=== PATIENT | female | born 1990 | race Caucasian/White ===

== ENCOUNTER 2017-01-27 20:42 | Emergency (ER) | payer SELFPAY ==
[~2017-01-27] VITALS: Ht 170.2 cm; Wt 131.5 kg
[2017-01-27] MEDS ORDERED: CYCL10TA9 PO (21:11)
[2017-01-27] MEDS ORDERED: CLON0.5T PO (21:11)
[2017-01-27] MEDS ORDERED: NS IV 1000 ML 1,000 ML IV ONE (21:23)
[2017-01-27] MEDS ORDERED: diphenhydrAMINE 50 MG/ML INJ (BENADRYL) IVP ONE (21:30)
[2017-01-27] MEDS ORDERED: PROMETHAZINE INJ 25 MG/ML (PHENERGAN) AMP IVP ONE (21:30)
[2017-01-27] MEDS ORDERED: fentaNYL INJECTION 100 MCG/2 ML AMP IVP ONE (21:30)
[2017-01-27] MEDS ORDERED: RX-TRAMADOL 50 MG (ULTRAM) TAB PPK#4 PO STA (22:34)
--- NOTE | 2017-01-27 22:34 | ED Headache ---
General Chief Complaint: Head/Cervical Problems Stated Complaint: HEADACHE Nursing Triage Note: pt reports she has a bump on the right side of her head x 6 months with headache et vision changes. reports she had a ct in the past that was negative. Nursing Sepsis Screen: No Definite Risk Allergies and Home Medications Allergies Coded Allergies: ketorolac (Unverified Adverse Reaction, Unknown, 01/27/17) meperidine (Unverified Adverse Reaction, Unknown, 01/27/17) Home Medications Clonazepam 0.5 Mg Tablet, 0.5 MG PO TID PRN for ANXIETY, (Reported) Cyclobenzaprine HCl 10 Mg Tablet, 10 MG PO TID PRN for BACK PAIN, (Reported) Past Mtadfem-Ymyxyg-Zizhze Hx Patient Social History Alcohol Use: Denies Use Recreational Drug Use: No Smoking Status: Current Everyday Smoker Recent Foreign Travel: No Contact w/Someone Who Travel: No Recent Infectious Disease Expo: No Recent Hopitalizations: No Physical Abuse: No Sexual Abuse: No Mistreated: No Fear: No Seasonal Allergies Seasonal Allergies: No Surgeries History of Surgeries: Yes Surgeries: Gallbladder Neurological History of Neurological Disord: Yes Neurological Disorders: Headaches /Migraines Psychosocial Suicide Risk Score: 0 Physical Exam Vital Signs Vital Sign - Last 12Hours 01/27/17 21:07 Temp 98.5 Pulse 108 Resp 14 B/P (MAP) 142/103 Capillary Refill : Less Than 3 Seconds Progress/Results/Core Measures Results/Orders My Orders Orders - DONNA GILL MD Fentanyl Injection (Sublimaze Injection (01/27/17 21:30) Diphenhydramine Injection (Benadryl Inje (01/27/17 21:30) Promethazine Injection (Phenergan Injec (01/27/17 21:30) Ns Iv 1000 Ml (Sodium Chloride 0.9%) (01/27/17 21:23) Saline Lock/Iv-Start (01/27/17 21:48) Medications Given in ED Current Medications Medications Dose Ordered Sig/Phi Route Start Time Stop Time Status Last Admin Dose Admin Diphenhydramine HCl 25 mg ONCE ONCE IVP 01/27/17 21:30 01/27/17 21:31 DC 01/27/17 21:39 25 MG Fentanyl Citrate 50 mcg ONCE ONCE IVP 01/27/17 21:30 01/27/17 21:31 DC 01/27/17 21:39 50 MCG Promethazine HCl 25 mg ONCE ONCE IVP 01/27/17 21:30 01/27/17 21:31 DC 01/27/17 21:39 25 MG Sodium Chloride 1,000 ml @ 0 mls/hr Q0M ONCE IV 01/27/17 21:23 01/27/17 21:25 DC 01/27/17 21:39 1,000 MLS/HR Vital Signs/I&O Vital Sign - Last 12Hours 01/27/17 21:07 Temp 98.5 Pulse 108 Resp 14 B/P (MAP) 142/103 Blood Pressure Mean: 116 Departure Impression Impression: Primary Impression: Migraine Qualified Codes: G43.109 - Migraine with aura, not intractable, without status migrainosus Disposition: 01 HOME, SELF-CARE Condition: Improved Departure-Patient Inst. Decision time for Depature: 22:30 Referrals: NO,LOCAL PHYSICIAN (PCP) Primary Care Physician Patient Instructions: Migraine Headache (DC) Add. Discharge Instructions: Drink plenty of clear liquids. You may take ibuprofen up to 600 mg every 6 hours as needed for pain. Add Tylenol (acetaminophen) up to 1000 mg every 6 hours as needed for additional pain relief. If these medications do not control your pain, use the Ultram (tramadol) one tablet every 6 hours as needed. Return to care if symptoms worsen. Follow up with your primary care provider to talk about migraine prevention and treatment at home. All discharge instructions reviewed with patient and/or family. Voiced understanding. DONNA GILL MD Jan 27, 2017 22:34
[2017-01-27 23:11] VITALS: BP 118/55
== END 2017-01-27 23:11 | disposition home or self-care (01) ==
LOC: EDUNIT# 20:42 → ER 20:46
DX: G43.909 Migraine, unspecified, not intractable, without status migrainosus (principal); F17.200 Nicotine dependence, unspecified, uncomplicated

== ENCOUNTER 2017-02-15 04:23 | Emergency (ER) | payer SELFPAY ==
[~2017-02-15] VITALS: Ht 170.2 cm; Wt 131.5 kg
[~2017-02-15 04:23] MED LIST: CLON0.5T PO; CYCL10TA9 PO
[2017-02-15] MEDS ORDERED: NS IV 1000 ML 1,000 ML IV ONE (04:35)
[2017-02-15] MEDS ORDERED: diphenhydrAMINE 50 MG/ML INJ (BENADRYL) IVP ONE (04:45)
[2017-02-15] MEDS ORDERED: PROMETHAZINE INJ 25 MG/ML (PHENERGAN) AMP IVP ONE (04:45)
[2017-02-15] MEDS ORDERED: fentaNYL INJECTION 100 MCG/2 ML AMP IVP ONE (05:15)
--- NOTE | 2017-02-15 05:33 | ED Headache ---
General Chief Complaint: Head/Cervical Problems Stated Complaint: MIGRAINE Nursing Triage Note: PT C/O MIGRAINE SINCE 1600 YESTERDAY AFTERNOON. SHE STATES SHE HAS HAD N/V. SHE REPORTS TAKING EXCEDRIN MIGRAINE WITH NO RELIEF. Nursing Sepsis Screen: No Definite Risk Source: patient, old records Exam Limitations: no limitations History of Present Illness Time seen by provider: 04:30 Initial Comments This 26-year-old young lady presents to the emergency room with complaints of migraine headache that started yesterday afternoon. She took Excedrin Migraine which did not resolve the headache. She has been vomiting 2 hours. She was seen in this ER about 3 weeks ago for the same problem. She unfortunately is allergic to NSAIDs. Allergies and Home Medications Allergies Coded Allergies: ketorolac (Unverified Adverse Reaction, Unknown, 01/27/17) meperidine (Unverified Adverse Reaction, Unknown, 01/27/17) Home Medications Clonazepam 0.5 Mg Tablet, 0.5 MG PO TID PRN for ANXIETY, (Reported) Cyclobenzaprine HCl 10 Mg Tablet, 10 MG PO TID PRN for BACK PAIN, (Reported) Constitutional: no symptoms reported Eyes: No Symptoms Reported Respiratory: no symptoms reported Cardiovascular: no symptoms reported Gastrointestinal: see HPI Genitourinary: no symptoms reported : No Musculoskeletal: no symptoms reported Skin: no symptoms reported Psychiatric/Neurological: See HPI Past Ftxqsgg-Ygexim-Inzmww Hx Patient Social History Alcohol Use: Denies Use Recreational Drug Use: No Smoking Status: Current Everyday Smoker Type Used: Cigarettes 2nd Hand Smoke Exposure: No Recent Foreign Travel: No Contact w/Someone Who Travel: No Recent Infectious Disease Expo: No Recent Hopitalizations: No Physical Abuse: No Sexual Abuse: No Seasonal Allergies Seasonal Allergies: No Surgeries History of Surgeries: Yes Surgeries: Gallbladder, Tonsillectomy Respiratory History of Respiratory Disorde: No Cardiovascular History of Cardiac Disorders: No Neurological History of Neurological Disord: Yes Neurological Disorders: Headaches /Migraines Genitourinary History of Genitourinary Disor: No Gastrointestinal History of Gastrointestinal Di: No Musculoskeletal History of Musculoskeletal Dis: No Endocrine History of Endocrine Disorders: No HEENT History of HEENT Disorders: No Cancer History of Cancer: No Psychosocial History of Psychiatric Problem: No Suicide Risk Score: 0 Integumentary History of Skin or Integumenta: No Physical Exam Vital Signs Vital Sign - Last 12Hours 02/15/17 04:34 Temp 96.4 Pulse 74 Resp 18 B/P (MAP) 173/103 (126) Pulse Ox 99 O2 Delivery Room Air Capillary Refill : Less Than 3 Seconds General Appearance: WD/WN, no apparent distress HEENT: PERRL/EOMI, normal ENT inspection, pharynx normal, TM abnormal (L) ( erythematous) Neck: normal inspection Cardiovascular: regular rate, rhythm, no edema, no murmur Respiratory: chest non-tender, lungs clear, normal breath sounds, no respiratory distress, no accessory muscle use, respiratory distress, decreased breath sounds, accessory muscle use, crackles, rales, rhonchi, stridor, wheezing , expiration, inspiration, plerual rub, other Gastrointestinal: normal bowel sounds, non tender, soft Back: normal inspection Extremities: normal inspection Psychiatric: alert Crainal Nerves: normal hearing, normal speech, PERRL Motor/Sensory: no motor deficit, no sensory deficit Skin: normal color, warm/dry Progress/Results/Core Measures Results/Orders My Orders Orders - DONNA GILL MD Promethazine Injection (Phenergan Injec (02/15/17 04:45) Diphenhydramine Injection (Benadryl Inje (02/15/17 04:45) Saline Lock/Iv-Start (02/15/17 04:35) Ns Iv 1000 Ml (Sodium Chloride 0.9%) (02/15/17 04:35) Fentanyl Injection (Sublimaze Injection (02/15/17 05:15) Medications Given in ED Current Medications Medications Dose Ordered Sig/Phi Route Start Time Stop Time Status Last Admin Dose Admin Diphenhydramine HCl 25 mg ONCE ONCE IVP 02/15/17 04:45 02/15/17 04:46 DC 02/15/17 04:45 25 MG Fentanyl Citrate 75 mcg ONCE ONCE IVP 02/15/17 05:15 02/15/17 05:16 DC 02/15/17 05:18 75 MCG Promethazine HCl 25 mg ONCE ONCE IVP 02/15/17 04:45 02/15/17 04:46 DC 02/15/17 04:45 25 MG Sodium Chloride 1,000 ml @ 0 mls/hr Q0M ONCE IV 02/15/17 04:35 02/15/17 04:36 DC 02/15/17 04:45 0 MLS/HR Vital Signs/I&O Vital Sign - Last 12Hours 02/15/17 04:34 Temp 96.4 Pulse 74 Resp 18 B/P (MAP) 173/103 (126) Pulse Ox 99 O2 Delivery Room Air Blood Pressure Mean: 126 Progress Note : Time: 05:15 Progress Note IV fluids and Phenergan are about half complete. Patient is still having significant headache. Fentanyl has been ordered. Departure Impression Impression: Primary Impression: Migraine Qualified Codes: G43.909 - Migraine, unspecified, not intractable, without status migrainosus Additional Impression: Nausea and vomiting Qualified Codes: R11.2 - Nausea with vomiting, unspecified Disposition: 01 HOME, SELF-CARE Condition: Improved Departure-Patient Inst. Decision time for Depature: 05:41 Referrals: [facility] (PCP) Primary Care Physician ROMEO GATICA MD (Family) Primary Care Physician Patient Instructions: Migraine Headache (DC) Add. Discharge Instructions: Drink plenty of clear liquids. Use Zofran (ondansetron) as prescribed for nausea and vomiting. Follow-up with your primary care provider as soon as possible. Consider further workup for triggers of migraine such as vitamin D deficiency. Rest in a calm, quiet, dark environment for the remainder of the morning. You may use ibuprofen up to 800 mg every 8 hours as needed for pain. You may also use Tylenol (acetaminophen) up to 1000 mg every 6 hours as needed for additional pain relief. If this is not effective, you may try Fioricet as prescribed. All discharge instructions reviewed with patient and/or family. Voiced understanding. Scripts Ondansetron (Zofran Odt) 4 Mg Tab.rapdis 4 MG SL Q4H Y for NAUSEA/VOMITING-1ST LINE, #10 TAB Prov: DONNA GILL MD 02/15/17 Butalb/Acetaminophen/Caffeine (Rnodet-Hmzbwnal-Zekx 50-300-40) 1 Each Capsule 1 EACH PO Q4H Y for HEADACHE, #10 CAP Prov: DONNA GILL MD 02/15/17 DONNA GILL MD Feb 15, 2017 05:33
[2017-02-15] MEDS ORDERED: ONDA4TAB8 SL (05:52)
[2017-02-15] MEDS ORDERED: BUTA1CAP41 PO (05:52)
[2017-02-15 05:57] VITALS: BP 164/99
[2017-02-15] MEDS ORDERED: AMOX500T2 PO (06:42)
== END 2017-02-15 06:01 | disposition home or self-care (01) ==
LOC: EDUNIT# 04:23 → ER 04:25
DX: G43.909 Migraine, unspecified, not intractable, without status migrainosus (principal); H66.92 Otitis media, unspecified, left ear; R11.2 Nausea with vomiting, unspecified; F17.210 Nicotine dependence, cigarettes, uncomplicated

== ENCOUNTER 2017-02-27 21:53 | Emergency (ER) | payer SELFPAY ==
[~2017-02-27] VITALS: Ht 170.2 cm; Wt 131.5 kg
[~2017-02-27 21:53] MED LIST changes: +AMOX500T2 PO; +BUTA1CAP41 PO; +ONDA4TAB8 SL
[2017-02-27] MEDS ORDERED: diphenhydrAMINE 50 MG/ML INJ (BENADRYL) IV STA (22:18)
[2017-02-27] MEDS ORDERED: ORPHENADRINE 60 MG/2 ML (NORFLEX) AMP IV STA (22:18)
[2017-02-27] MEDS ORDERED: NS IV 1000 ML 1,000 ML IV ONE (22:18)
--- NOTE | 2017-02-27 22:22 | ED Headache ---
General Chief Complaint: Head/Cervical Problems Stated Complaint: MIGRAINE X3 DAYS Nursing Triage Note: intermittant headache x3 days Nursing Sepsis Screen: No Definite Risk Source: patient, family Exam Limitations: no limitations History of Present Illness Time seen by provider: 22:05 Initial Comments 26-year-old female patient presents to the emergency department with complaints of a migraine headache intermittent leg for 3 days. Patient does have a history of migraines and states it is similar to usual headaches. Patient does also complain of nasal congestion. Patient reports recently moving to [place] and has an appointment with [facility] to establish care on March 17. Patient reports she only has motrin and home and last took 800 mg at 1900. Instead of buying Tylenol or Excedrin, patient decided to come to the emergency department. Timing/Duration: other (3 day onset) Severity/Quality: throbbing Location: frontal (left frontal), parietal Prior Headaches/Recent Trauma: occasional headaches Modifying Factors: worse with exposure to light, worse with other (sound sensitivity) Allergies and Home Medications Allergies Coded Allergies: ketorolac (Unverified Adverse Reaction, Unknown, 01/27/17) meperidine (Unverified Adverse Reaction, Unknown, 01/27/17) Home Medications Butalb/Acetaminophen/Caffeine 1 Each Capsule, 1 EACH PO Q4H PRN for HEADACHE, # 10 Prescribed by: DONNA LAZCANO on 02/15/17 0552 Cephalexin 500 Mg Capsule, 500 MG PO TID, #30 Ref 0 Prescribed by: LINA SHANNON on 02/27/17 2253 Clonazepam 0.5 Mg Tablet, 0.5 MG PO TID PRN for ANXIETY, (Reported) Constitutional: chills, No diaphoresis, No dizziness, No fever, malaise Eyes: Denies Blurred Vision, Denies Decreased Acuity, Photophobia Ears, Nose, Mouth, Throat: denies ear pain, denies ear discharge, nose pain ( sinus pain), denies nose discharge, denies mouth pain, denies throat pain Respiratory: cough, No phlegm, No short of breath, No stridor, No wheezing Cardiovascular: No chest pain, No palpitations, No syncope Gastrointestinal: No abdominal pain, No constipation, No diarrhea, nausea, No vomiting Genitourinary: no symptoms reported Musculoskeletal: no symptoms reported Skin: no symptoms reported Psychiatric/Neurological: See HPI, Headache, Denies Numbness, Denies Paresthesia, Denies Seizure, Denies Tingling, Denies Weakness All Other Systems Reviewed Negative Unless Noted: Yes (Negative excepted noted.) Past Yityjmj-Tpamfl-Etsqwz Hx Patient Social History Alcohol Use: Denies Use Recreational Drug Use: No Smoking Status: Current Everyday Smoker Type Used: Cigarettes 2nd Hand Smoke Exposure: No Recent Foreign Travel: No Contact w/Someone Who Travel: No Recent Infectious Disease Expo: No Recent Hopitalizations: No Immunizations Up To Date Tetanus Booster (TDap): Unknown PED Vaccines UTD: Yes Seasonal Allergies Seasonal Allergies: No Surgeries History of Surgeries: Yes Surgeries: Gallbladder, Tonsillectomy Respiratory History of Respiratory Disorde: No Cardiovascular History of Cardiac Disorders: No Neurological History of Neurological Disord: Yes Neurological Disorders: Headaches /Migraines Reproductive System : No Last Menstrual Period: Feb 27, 2017 Genitourinary History of Genitourinary Disor: No Gastrointestinal History of Gastrointestinal Di: No Musculoskeletal History of Musculoskeletal Dis: No Endocrine History of Endocrine Disorders: No HEENT History of HEENT Disorders: No Cancer History of Cancer: No Psychosocial History of Psychiatric Problem: Yes Behavioral Health Disorders: Anxiety Integumentary History of Skin or Integumenta: No Blood Transfusions History of Blood Disorders: No Reviewed Nursing Assessment Reviewed/Agree w Nursing PMH: Yes Family Medical History Significant Family History: No Pertinent Family Hx Physical Exam Vital Signs Vital Sign - Last 12Hours 02/27/17 22:01 Temp 98.8 Pulse 99 Resp 18 B/P (MAP) 123/68 (86) Pulse Ox 97 O2 Delivery Room Air Capillary Refill : Less Than 3 Seconds General Appearance: WD/WN, no apparent distress HEENT: PERRL/EOMI, TMs normal, photophobia, pharyngeal erythema, No tonsillar exudate, other ((+) nasal congestion with TTP over the left frontal sinus.) Neck: non-tender, full range of motion, supple, lymphadenopathy (R), lymphadenopathy (L) Cardiovascular: normal peripheral pulses, regular rate, rhythm, no edema, no murmur Respiratory: lungs clear, normal breath sounds, no respiratory distress, no accessory muscle use Gastrointestinal: normal bowel sounds, non tender, soft, no organomegaly, No distended Back: normal inspection Extremities: no pedal edema, normal capillary refill Psychiatric: alert, oriented x 3 Crainal Nerves: normal hearing, normal speech, PERRL Coordination/Gait: normal finger to nose, normal gait, negative Romberg's sign Motor/Sensory: no motor deficit, no sensory deficit, no pronator drift Skin: normal color, warm/dry Progress/Results/Core Measures Results/Orders My Orders Orders - LINA SHANNON Saline Lock/Iv-Start (02/27/17 22:18) Ondansetron Injection (Zofran Injectio (02/27/17 22:30) Orphenadrine Injection (Norflex Injectio (02/27/17 22:18) Ns Iv 1000 Ml (Sodium Chloride 0.9%) (02/27/17 22:18) Diphenhydramine Injection (Benadryl Inje (02/27/17 22:18) Acetaminophen Tablet (Tylenol Tablet) (02/27/17 22:30) Hydrocodone/Apap 5/325 Tablet (Lortab 5 (02/27/17 23:22) Medications Given in ED Current Medications Medications Dose Ordered Sig/Phi Route Start Time Stop Time Status Last Admin Dose Admin Acetaminophen 1,000 mg ONCE ONCE PO 02/27/17 22:30 02/27/17 22:31 DC 02/27/17 22:33 1,000 MG Ondansetron HCl 4 mg ONCE ONCE IVP 02/27/17 22:30 02/27/17 22:31 DC 02/27/17 22:34 4 MG Sodium Chloride 1,000 ml @ 0 mls/hr Q0M ONCE IV 02/27/17 22:18 02/27/17 22:19 DC 02/27/17 22:34 0 MLS/HR Vital Signs/I&O Vital Sign - Last 12Hours 02/27/17 02/27/17 02/27/17 02/27/17 22:01 22:33 23:29 23:31 Temp 98.8 98.8 98.8 98.2 Pulse 99 77 Resp 18 16 B/P (MAP) 123/68 (86) Pulse Ox 97 98 O2 Delivery Room Air Room Air Intake and Output 02/28/17 00:00 Intake Total 1000 ml Balance 1000 ml Blood Pressure Mean: 86 Departure Communication (Admissions) Progress Notes Patient seen and evaluated. Patient was given 1 L normal saline, 1 g of Tylenol , 4 mg Zofran, 25 mg Benadryl, and 60 mg of Norflex. Patient initially reported an allergy to Toradol, but states it happened when she was a child. Patient's states she is not actually sure if she is allergic to Toradol. Patient is able to take ibuprofen and Aleve without difficulty. Patient reports headache is now a 7/10 after medications. Will give 1 dose of hydrocodone with discharge to home. Patient given prescriptions for Keflex. She will use Tylenol and ibuprofen [id number] for headaches. She will keep the follow-up appointment with [facility] on March 17. Impression Impression: Primary Impression: Migraine Qualified Codes: G43.009 - Migraine without aura, not intractable, without status migrainosus Additional Impression: Sinusitis, acute frontal Qualified Codes: J01.10 - Acute frontal sinusitis, unspecified Disposition: HOME, SELF-CARE Condition: Improved Departure-Patient Inst. Decision time for Depature: 22:47 Referrals: [facility] (PCP) Primary Care Physician ROMEO GATICA MD (Family) Primary Care Physician Patient Instructions: Migraine Headache (DC), Sinusitis, Adult (DC) Add. Discharge Instructions: All discharge instructions reviewed with patient and/or family. Voiced understanding. Tylenol Extra Strength [id number] as directed for headache or pain. Ibuprofen 800 mg by mouth every 8 hours as needed for pain or headache. Saline nasal spray and Afrin nasal spray [id number] as directed for nasal congestion. Cool humidifier. Follow-up with [facility] as previously scheduled March 17 or sooner if needed. Return to the emergency department for worsened symptoms or any other concerns. Scripts Cephalexin (Cephalexin) 500 Mg Capsule 500 MG PO TID, #30 CAP 0 Refills Prov: LINA SHANNON 02/27/17 LINA SHANNON Feb 27, 2017 22:22
[2017-02-27] MEDS ORDERED: ACETAMINOPHEN 500 MG TAB (TYLENOL) PO ONE (22:30)
[2017-02-27] MEDS ORDERED: ONDANSETRON 4 MG/2 ML (SDV) Z0FRAN IVP ONE (22:30)
[2017-02-27] MEDS ORDERED: CEPH500C PO (22:53)
[2017-02-27] MEDS ORDERED: HYDROcodone/APAP 5 MG/325 MG (LORTAB) TAB PO STA (23:22)
[2017-02-27 23:31] VITALS: BP 130/81
== END 2017-02-27 23:30 | disposition home or self-care (01) ==
LOC: ER 21:53
DX: G43.909 Migraine, unspecified, not intractable, without status migrainosus (principal); J01.10 Acute frontal sinusitis, unspecified; F41.9 Anxiety disorder, unspecified; F17.210 Nicotine dependence, cigarettes, uncomplicated; Z90.89 Acquired absence of other organs

== ENCOUNTER 2017-04-04 17:31 | Emergency (ER) | payer SELFPAY ==
[~2017-04-04] VITALS: Ht 170.2 cm; Wt 136.1 kg
[~2017-04-04 17:31] MED LIST changes: +CEPH500C PO
[2017-04-04] MEDS ORDERED: HYDR-757 PO (19:03)
--- NOTE | 2017-04-04 19:03 | ED Back Pain ---
General Chief Complaint: Back Problems Stated Complaint: FALL BACK/NECK PAIN Nursing Triage Note: Pt c/o mid/lower back pain and neck pain after falling 3 days ago. Nursing Sepsis Screen: No Definite Risk Source of Information: Patient Exam Limitations: No Limitations History of Present Illness Date Seen by Provider: Apr 04, 2017 Time Seen by Provider: 18:59 Initial Comments posterior neck pain, low back pain nonradiating x 3 days. Location: Lumbar Spine Timing/Duration: 1-2 Days Severity: Moderate Allergies and Home Medications Allergies Coded Allergies: ketorolac (Unverified Adverse Reaction, Unknown, 01/27/17) meperidine (Unverified Adverse Reaction, Unknown, 01/27/17) Home Medications Butalb/Acetaminophen/Caffeine 1 Each Capsule, 1 EACH PO Q4H PRN for HEADACHE, # 10 Prescribed by: DONNA LAZCANO on 02/15/17 0552 Cephalexin 500 Mg Capsule, 500 MG PO TID, #30 Ref 0 Prescribed by: LINA SHANNON on 02/27/17 2253 Clonazepam 0.5 Mg Tablet, 0.5 MG PO TID PRN for ANXIETY, (Reported) Constitutional: see HPI EENTM: see HPI Respiratory: see HPI, cough Cardiovascular: no symptoms reported Genitourinary: no symptoms reported Musculoskeletal: see HPI, back pain Skin: no symptoms reported Past Sscfsqx-Xclpot-Wocfun Hx Patient Social History Type Used: Cigarettes 2nd Hand Smoke Exposure: No Recent Foreign Travel: No Contact w/Someone Who Travel: No Recent Infectious Disease Expo: No Recent Hopitalizations: No Immunizations Up To Date Tetanus Booster (TDap): Unknown PED Vaccines UTD: Yes Seasonal Allergies Seasonal Allergies: No Surgeries History of Surgeries: Yes Surgeries: Gallbladder, Tonsillectomy Respiratory History of Respiratory Disorde: No Cardiovascular History of Cardiac Disorders: No Neurological History of Neurological Disord: Yes Neurological Disorders: Headaches /Migraines Genitourinary History of Genitourinary Disor: No Gastrointestinal History of Gastrointestinal Di: No Musculoskeletal History of Musculoskeletal Dis: No Endocrine History of Endocrine Disorders: No HEENT History of HEENT Disorders: No Cancer History of Cancer: No Psychosocial History of Psychiatric Problem: Yes Behavioral Health Disorders: Anxiety Integumentary History of Skin or Integumenta: No Blood Transfusions History of Blood Disorders: No Family Medical History Significant Family History: No Pertinent Family Hx Physical Exam Vital Signs Vital Sign - Last 12Hours 04/04/17 17:37 Temp 98.1 Pulse 95 Resp 18 B/P (MAP) 135/76 (95) Pulse Ox 97 O2 Delivery Room Air Capillary Refill : Less Than 3 Seconds General Appearance: No Apparent Distress, WD/WN, Obese HEENT: PERRL/EOMI, TMs Normal Neck: Full Range of Motion, Normal Inspection Respiratory: Normal Breath Sounds, No Accessory Muscle Use, No Respiratory Distress Gastrointestinal: Normal Bowel Sounds, Non Tender, Soft Extremity: Normal Capillary Refill, Normal Inspection Neurologic/Psychiatric: Alert, Oriented x3 Skin: Normal Color, Warm/Dry Progress/Results/Core Measures Results/Orders My Orders Orders - JENNIFER PEARSON APRN Ct Cervical Spine Wo (04/04/17 18:28) Lumbar Spine - 2-3 Views (04/04/17 18:28) Vital Signs/I&O Vital Sign - Last 12Hours 04/04/17 17:37 Temp 98.1 Pulse 95 Resp 18 B/P (MAP) 135/76 (95) Pulse Ox 97 O2 Delivery Room Air Blood Pressure Mean: 95 Departure Impression Impression: Primary Impression: Cervical strain Disposition: 01 HOME, SELF-CARE Condition: Stable Departure-Patient Inst. Decision time for Depature: 19:01 Referrals: [facility] Primary Care Physician ROMEO GATICA MD (Family) Primary Care Physician Patient Instructions: Low Back Pain (DC) Add. Discharge Instructions: 1. These pain medications are very addicting so use them ONLY for severe pain. Multiple studies have shown tylenol and motrin combination to be as effective as hydrocodone so this would be best for use for mild to moderate pain. . Follow up wiht your doctor this week for recheck 2. Return tO ER for any worsening All discharge instructions reviewed with patient and/or family. Voiced understanding. Scripts Hydrocodone/Acetaminophen ([place] 5-325 Tablet) 1 Each Tablet 1 EACH PO Q4H Y for PAIN-MODERATE, #10 TAB Prov: JENNIFER PEARSON APRN 04/04/17 JENNIFER PEARSON APRN Apr 04, 2017 19:03
--- NOTE | 2017-04-04 19:13 | Diagnostic Imaging Report ---
Clinical indication: Patient status post fall with low back pain. Exam: X-ray of the lumbar spine, 3 views. Comparison: None. Findings: There is no acute lumbar spine fracture or dislocation. There is mild loss of intervertebral disc height at the L5-S1 level. Otherwise, the intervertebral disc heights appear maintained. Sacroiliac joints unremarkable. There are surgical clips overlying the right upper abdomen and pelvis region. Impression: 1: There is no acute lumbar spine fracture or dislocation. If there is continued concern for fracture, then CT scan would better evaluate. 2: There is mild loss of intervertebral disc height at the L5-S1 level. Dictated by: Dictated on workstation # [id number]
--- NOTE | 2017-04-04 19:31 | Diagnostic Imaging Report ---
Clinical indication: Patient is status post fall 4 days ago and has neck pain. Exam: Axial CT scan of the cervical spine performed without IV contrast. Sagittal and coronal reformatted images were created. Comparison: None. Findings: There is straightening of the cervical spine posture which is nonspecific. There is no acute cervical spine fracture or dislocation. There is streak artifact obscuring the mid to lower cervical spine due to patient body habitus. There are posterior disc spurs seen at the C3-C4 and C4-C5 levels. There is a least mild to moderate central canal narrowing at the C3-C4 level and at least mild central canal narrowing at the C4-C5 level. There is no significant bony neural foraminal narrowing. There also appears to be a diffuse disc bulge involving the C3-C4 level, as well. There is no neck soft tissue swelling or fluid collection seen. Neck soft tissue structures showed no significant abnormality. Lung apices are clear. Impression: 1: There is no acute cervical spine fracture or dislocation. 2: There is straightening of the cervical spine posture. 3: There is cervical spine degenerative disease with suggestion of diffuse disc bulges at the C3-C4 and C4-C5 levels with associated posterior disc herniations with spurs. This finding is worse at the C3-C4 level. MRI of the cervical spine would better evaluate. Dictated by: Dictated on workstation # [id number]
[2017-04-04 19:35] VITALS: BP 135/76
== END 2017-04-04 19:35 | disposition home or self-care (01) ==
LOC: EDUNIT# 17:31 → ER 17:33
DX: S16.1XXA Strain of muscle, fascia and tendon at neck level, initial encounter (principal); G43.909 Migraine, unspecified, not intractable, without status migrainosus; F41.9 Anxiety disorder, unspecified; Z90.49 Acquired absence of other specified parts of digestive tract; W18.39XA Other fall on same level, initial encounter
CPT/HCPCS: 72100; 72125; 99281

== ENCOUNTER 2017-05-05 10:36 | Emergency (ER) | payer SELFPAY ==
[~2017-05-05] VITALS: Ht 170.2 cm; Wt 136.1 kg
[~2017-05-05 10:36] MED LIST changes: +HYDR-757 PO
[2017-05-05] MEDS ORDERED: LIDOCAINE 2% VISCOUS 15 ML UDC PO ONE (11:45)
[2017-05-05] MEDS ORDERED: ONDANSETRON 4 MG/2 ML (SDV) Z0FRAN IVP ONE (11:45)
[2017-05-05] MEDS ORDERED: ANTACID SUSP 30 ML UDC (MYLANTA) PO ONE (11:45)
--- NOTE | 2017-05-05 11:46 | ED Abdominal Pain ---
General Chief Complaint: Abdominal/GI Problems Stated Complaint: VOMITING BLOOD Nursing Triage Note: pt states woke up this am and went to bathroom and begin throwing up while sitting on the toilet. pt reports vomiting "both" dark brown and red colored emesis x 1 and now abd pain across middle abd. pt denies diarrhea or any other symptoms at this time. Sepsis Screen: No Definite Risk Source of Information: Patient Exam Limitations: No Limitations History of Present Illness Date Seen by Provider: May 05, 2017 Time Seen by Provider: 11:45 Initial Comments To ER with reports epigastric abdominal pain. She awakened with this this morning. She then went to the restroom to urinate and vomited. The vomit had blood in it or at least appeared to. She had not yet eaten anything this morning. She has persistent epigastric abdominal pain. No fevers or chills. No bowel changes. No history of this. Timing/Duration: 4-6 Hours Severity/Quality: Moderate Location: Epigastric Radiation: No Radiation Activities at Onset: None Associated Symptoms: Nausea/Vomiting Allergies and Home Medications Allergies Coded Allergies: ketorolac (Unverified Adverse Reaction, Unknown, 01/27/17) meperidine (Unverified Adverse Reaction, Unknown, 01/27/17) Home Medications Butalb/Acetaminophen/Caffeine 1 Each Capsule, 1 EACH PO Q4H PRN for HEADACHE, # 10 Prescribed by: DONNA LAZCANO on 02/15/17 0552 Cephalexin 500 Mg Capsule, 500 MG PO TID, #30 Ref 0 Prescribed by: LINA SHANNON on 02/27/17 2253 Clonazepam 0.5 Mg Tablet, 0.5 MG PO TID PRN for ANXIETY, (Reported) Hydrocodone/Acetaminophen 1 Each Tablet, 1 EACH PO Q4H PRN for PAIN-MODERATE, # 10 Prescribed by: JENNIFER PEARSON on 04/04/17 1903 Review of Systems Constitutional: see HPI EENTM: No Symptoms Reported Respiratory: No Symptoms Reported Cardiovascular: No Symptoms Reported Gastrointestinal: See HPI, Abdominal Pain Genitourinary: No Symptoms Reported Musculoskeletal: no symptoms reported Skin: no symptoms reported Psychiatric/Neurological: No Symptoms Reported Endocrine: No Symptoms Reported Hematologic/Lymphatic: No Symptoms Reported Past Xafltma-Fizmht-Gnjrdb Hx Patient Social History Alcohol Use: Denies Use Recreational Drug Use: No Smoking Status: Current Everyday Smoker Type Used: Cigarettes 2nd Hand Smoke Exposure: No Recent Foreign Travel: No Contact w/Someone Who Travel: No Recent Infectious Disease Expo: No Recent Hopitalizations: No Immunizations Up To Date Tetanus Booster (TDap): Unknown PED Vaccines UTD: Yes Seasonal Allergies Seasonal Allergies: No Surgeries History of Surgeries: Yes Surgeries: Gallbladder, Tonsillectomy Respiratory History of Respiratory Disorde: No Cardiovascular History of Cardiac Disorders: No Neurological History of Neurological Disord: Yes Neurological Disorders: Headaches /Migraines Reproductive System : No Genitourinary History of Genitourinary Disor: No Gastrointestinal History of Gastrointestinal Di: Yes Gastrointestinal Disorders: Gall Bladder Disease Musculoskeletal History of Musculoskeletal Dis: No Endocrine History of Endocrine Disorders: No HEENT History of HEENT Disorders: No Cancer History of Cancer: No Psychosocial History of Psychiatric Problem: Yes Behavioral Health Disorders: Anxiety Integumentary History of Skin or Integumenta: No Blood Transfusions History of Blood Disorders: No Family Medical History Significant Family History: No Pertinent Family Hx Physical Exam Vital Signs VS - Last 72 Hours, by Label 05/05/17 11:15 Pulse 89 Resp 18 B/P (MAP) 110/55 (73) Pulse Ox 96 O2 Delivery Room Air Capillary Refill : Less Than 3 Seconds General Appearance: WD/WN, no apparent distress HEENT: PERRL/EOMI, normal ENT inspection Neck: non-tender, full range of motion Respiratory: no respiratory distress, no accessory muscle use Cardiovascular: regular rate, rhythm, no murmur Gastrointestinal: normal bowel sounds, soft, tenderness (epigastric) Extremities: normal range of motion, non-tender Neurologic/Psychiatric: alert, normal mood/affect, oriented x 3 Skin: normal color, warm/dry Progress/Results/Core Measures Results/Orders Lab Results Laboratory Tests Test 05/05/17 11:37 05/05/17 12:35 Range/Units White Blood Count 11.0 4.3-11.0 10^3/uL Red Blood Count 4.79 4.35-5.85 10^6/uL Hemoglobin 13.6 11.5-16.0 G/DL Hematocrit 41 35-52 % Mean Corpuscular Volume 86 80-99 FL Mean Corpuscular Hemoglobin 28 25-34 PG Mean Corpuscular Hemoglobin Concent 33 32-36 G/DL Red Cell Distribution Width 13.7 10.0-14.5 % Platelet Count 374 130-400 10^3/uL Mean Platelet Volume 10.1 7.4-10.4 FL Neutrophils (%) (Auto) 66 42-75 % Lymphocytes (%) (Auto) 19 12-44 % Monocytes (%) (Auto) 6 0-12 % Eosinophils (%) (Auto) 9 0-10 % Basophils (%) (Auto) 1 0-10 % Neutrophils # (Auto) 7.2 1.8-7.8 X 10^3 Lymphocytes # (Auto) 2.1 1.0-4.0 X 10^3 Monocytes # (Auto) 0.7 0.0-1.0 X 10^3 Eosinophils # (Auto) 1.0 H 0.0-0.3 10^3/uL Basophils # (Auto) 0.1 0.0-0.1 10^3/uL Sodium Level 138 135-145 MMOL/L Potassium Level 5.5 H 3.6-5.0 MMOL/L Chloride Level 109 H 98-107 MMOL/L Carbon Dioxide Level 20 L 21-32 MMOL/L Anion Gap 9 5-14 MMOL/L Blood Urea Nitrogen 14 7-18 MG/DL Creatinine 0.70 0.60-1.30 MG/DL Estimat Glomerular Filtration Rate > 60 BUN/Creatinine Ratio 20 Glucose Level 117 H 70-105 MG/DL Calcium Level 9.1 8.5-10.1 MG/DL Total Bilirubin 0.2 0.1-1.0 MG/DL Aspartate Amino Transf (AST/SGOT) 26 5-34 U/L Alanine Aminotransferase (ALT/SGPT) 25 0-55 U/L Alkaline Phosphatase 87 40-136 U/L Total Protein 7.2 6.4-8.2 GM/DL Albumin 3.7 3.2-4.5 GM/DL Lipase 12 8-78 U/L Urine Color YELLOW Urine Clarity CLEAR Urine pH 7 5-9 Urine Specific [place] 1.010 L 1.016-1.022 Urine Protein NEGATIVE NEGATIVE Urine Glucose (UA) NEGATIVE NEGATIVE Urine Ketones NEGATIVE NEGATIVE Urine Nitrite NEGATIVE NEGATIVE Urine Bilirubin NEGATIVE NEGATIVE Urine Urobilinogen NORMAL NORMAL MG/DL Urine Leukocyte Esterase NEGATIVE NEGATIVE Urine RBC (Auto) NEGATIVE NEGATIVE Urine RBC NONE /HPF Urine WBC NONE /HPF Urine Squamous Epithelial Cells 25-50 H /HPF Urine Crystals NONE /LPF Urine Bacteria NEGATIVE /HPF Urine Casts NONE /LPF Urine Mucus NEGATIVE /LPF Urine Culture Indicated NO Urine Test NEGATIVE NEGATIVE My Orders Orders - JENNIFER PEARSON APRN Cbc With Automated Diff (05/05/17 11:40) Comprehensive Metabolic Panel (05/05/17 11:40) Ua Culture If Indicated (05/05/17 11:40) Urine Bedside (05/05/17 11:40) Saline Lock/Iv-Start (05/05/17 11:40) Lipase (05/05/17 11:40) Ondansetron Injection (Zofran Injectio (05/05/17 11:45) Antacid Suspension (Mylanta Suspension (05/05/17 11:45) Lidocaine 2% Viscous 15 Ml (Xylocaine Vi (05/05/17 11:45) Hcg,Qualitative Urine (05/05/17 12:46) Ns Iv 1000 Ml (Sodium Chloride 0.9%) (05/05/17 13:00) Medications Given in ED Current Medications Medications Dose Ordered Sig/Phi Route Start Time Stop Time Status Last Admin Dose Admin Al Hydrox/Mg Hydrox/Simethicone 30 ml ONCE ONCE PO 05/05/17 11:45 05/05/17 11:46 DC 05/05/17 12:07 30 ML Lidocaine HCl 15 ml ONCE ONCE PO 05/05/17 11:45 05/05/17 11:46 DC 05/05/17 12:07 15 ML Ondansetron HCl 4 mg ONCE ONCE IVP 05/05/17 11:45 05/05/17 11:46 DC 05/05/17 12:07 4 MG Vital Signs/I&O Vital Sign - Last 12Hours 05/05/17 11:15 Pulse 89 Resp 18 B/P (MAP) 110/55 (73) Pulse Ox 96 O2 Delivery Room Air Blood Pressure Mean: 73 Departure Impression Impression: Primary Impression: Gastritis Disposition: 01 HOME, SELF-CARE Condition: Stable Departure-Patient Inst. Decision time for Depature: 13:04 Referrals: [facility] (PCP) Primary Care Physician ROMEO GATICA MD (Family) Primary Care Physician Patient Instructions: Gastritis (DC) Add. Discharge Instructions: 1. Return to ER for any concerns 2. Medications as directed 3. Call a surgeon of your choosing do discuss upper GI endoscopy. All discharge instructions reviewed with patient and/or family. Voiced understanding. Scripts Sucralfate (Carafate) 1 Gm Tablet 1 GM PO ACHS, #40 TAB Prov: JENNIFER PEARSON APRN 05/05/17 Omeprazole (Omeprazole) 40 Mg Capsule. 40 MG PO DAILY, #30 CAP Prov: JENNIFER PEARSON APRN 05/05/17 JENNIFER PEARSON APRN May 05, 2017 11:46
[2017-05-05 11:50] LABS: BASOPHILS # (AUTO) 0.1 10^3/uL (0.0-0.1); BASOPHILS % (AUTO) 1 % (0-10); EOSINOPHILS % (AUTO) 9 % (0-10); HEMATOCRIT 41 % (35-52); HEMOGLOBIN 13.6 G/DL (11.5-16.0); LYMPHOCYTES # (AUTO) 2.1 X 10^3 (1.0-4.0); LYMPHOCYTES % (AUTO) 19 % (12-44); MEAN CORPUSCULAR HEMOGLOBIN 28 PG (25-34); MEAN CORPUSCULAR HGB CONC 33 G/DL (32-36); MEAN CORPUSCULAR VOLUME 86 FL (80-99); MEAN PLATELET VOLUME 10.1 FL (7.4-10.4); MONOCYTES # (AUTO) 0.7 X 10^3 (0.0-1.0); MONOCYTES % (AUTO) 6 % (0-12); NEUTROPHILS # (AUTO) 7.2 X 10^3 (1.8-7.8); NEUTROPHILS % (AUTO) 66 % (42-75); PLATELET COUNT 374 10^3/uL (130-400); RED BLOOD COUNT 4.79 10^6/uL (4.35-5.85); RED CELL DISTRIBUTION WIDTH 13.7 % (10.0-14.5)
[2017-05-05 12:14] LABS: ALANINE AMINOTRANSFERASE 25 U/L (0-55); ALBUMIN 3.7 GM/DL (3.2-4.5); ALKALINE PHOSPHATASE 87 U/L (40-136); BILIRUBIN,TOTAL 0.2 MG/DL (0.1-1.0); BUN/CREATININE RATIO 20; CALCIUM 9.1 MG/DL (8.5-10.1); CARBON DIOXIDE 20 MMOL/L (21-32); CHLORIDE 109 MMOL/L (98-107); GFR ESTIMATED > 60; GLUCOSE 117 MG/DL (70-105); LIPASE 12 U/L (8-78); POTASSIUM 5.5 MMOL/L (3.6-5.0); SODIUM 138 MMOL/L (135-145); TOTAL PROTEIN 7.2 GM/DL (6.4-8.2)
[2017-05-05 12:49] LABS: BILIRUBIN,URINE NEGATIVE (NEGATIVE); CLARITY,URINE CLEAR; COLOR,URINE YELLOW; GLUCOSE, URINE (UA) NEGATIVE (NEGATIVE); KETONES,URINE NEGATIVE (NEGATIVE); LEUKOCYTE ESTERASE ,URINE NEGATIVE (NEGATIVE); NITRITE,URINE NEGATIVE (NEGATIVE); PH,URINE 7 (5-9); PROTEIN,URINE NEGATIVE (NEGATIVE); UROBILINOGEN,URINE NORMAL (NORMAL)
[2017-05-05 12:57] LABS: BACTERIA,URINE NEGATIVE /HPF; SQUAMOUS EPITHELIAL CELL,UR 25-50 /HPF
[2017-05-05] MEDS ORDERED: NS IV 1000 ML 1,000 ML IV SCH (13:00)
[2017-05-05] MEDS ORDERED: SUCR1TAB36 PO (13:22)
[2017-05-05] MEDS ORDERED: OMEP40CA36 PO (13:22)
[2017-05-05 14:06] VITALS: BP 130/94
== END 2017-05-05 14:35 | disposition home or self-care (01) ==
LOC: EDUNIT# 10:36 → ER 10:39
DX: K29.70 Gastritis, unspecified, without bleeding (principal); G43.909 Migraine, unspecified, not intractable, without status migrainosus; F41.9 Anxiety disorder, unspecified; F17.210 Nicotine dependence, cigarettes, uncomplicated; Z88.6 Allergy status to analgesic agent; Z87.448 Personal history of other diseases of urinary system; Z90.89 Acquired absence of other organs; Z88.5 Allergy status to narcotic agent
CPT/HCPCS: 36415; 80053; 81000; 83690; 84703; 85025; 96361; 96374

== ENCOUNTER 2017-05-16 08:03 | Emergency (ER) | payer MEDICAID, OTHER ==
[~2017-05-16] VITALS: Ht 170.2 cm; Wt 136.1 kg
[~2017-05-16 08:03] MED LIST changes: +OMEP40CA36 PO; +SUCR1TAB36 PO
[2017-05-16] MEDS ORDERED: NS IV 1000 ML 1,000 ML IV SCH (09:13)
[2017-05-16] MEDS ORDERED: ORPHENADRINE 60 MG/2 ML (NORFLEX) AMP IV ONE (09:15)
[2017-05-16] MEDS ORDERED: fentaNYL INJECTION 100 MCG/2 ML AMP IVP ONE (09:15)
[2017-05-16] MEDS ORDERED: PROMETHAZINE INJ 25 MG/ML (PHENERGAN) AMP IVP ONE (09:15)
[2017-05-16] MEDS ORDERED: ONDA4TAB8 SL (11:09)
--- NOTE | 2017-05-16 11:10 | ED Headache ---
General Chief Complaint: Head/Cervical Problems Stated Complaint: MIGRAINE W/VOMITING Nursing Triage Note: PT REPORTS HEADACHE X 1 WEEK. SHE STATES SHE WOKE UP THIS AM WITH MIGRAINE AND VOMITING. PT HAS HX OF MIGRAINE. Nursing Sepsis Screen: No Definite Risk Source: patient Exam Limitations: no limitations History of Present Illness Date Seen by Provider: May 16, 2017 Time Seen by Provider: 09:05 Initial Comments This 26-year-old woman with known history of migraines presents to the emergency room with headaches 1 week. She has head headache, and pain/tension in the neck and shoulders today. She vomited a couple of times today as well. She previously has often gone to [place] where she receives Nubain for her headaches. She recently moved to the [facility]. She has been prescribed amitriptyline for migraine prophylaxis. The symptoms are typical for her headaches. Allergies and Home Medications Allergies Coded Allergies: ketorolac (Unverified Adverse Reaction, Unknown, 01/27/17) meperidine (Unverified Adverse Reaction, Unknown, 01/27/17) Home Medications Butalb/Acetaminophen/Caffeine 1 Each Capsule, 1 EACH PO Q4H PRN for HEADACHE Prescribed by: DONNA LAZCANO on 02/15/17 0552 Cephalexin 500 Mg Capsule, 500 MG PO TID Prescribed by: LINA SHANNON on 02/27/17 2253 Clonazepam 0.5 Mg Tablet, 0.5 MG PO TID PRN for ANXIETY, (Reported) Hydrocodone/Acetaminophen 1 Each Tablet, 1 EACH PO Q4H PRN for PAIN-MODERATE Prescribed by: JENNIFER PEARSON on 04/04/17 1903 Omeprazole 40 Mg Capsule.dr, 40 MG PO DAILY Prescribed by: JENNIFER PEARSON on 05/05/17 1322 Ondansetron 4 Mg Tab.rapdis, 4 MG SL Q4H PRN for NAUSEA/VOMITING-1ST LINE Prescribed by: DONNA LAZCANO on 05/16/17 1109 Sucralfate 1 Gm Tablet, 1 GM PO ACHS Prescribed by: JENNIFER PEARSON on 05/05/17 1322 Patient Home Medication List Home Medication List Reviewed: Yes Constitutional: no symptoms reported Eyes: No Symptoms Reported Ears, Nose, Mouth, Throat: no symptoms reported Respiratory: no symptoms reported Cardiovascular: no symptoms reported Gastrointestinal: see HPI Genitourinary: no symptoms reported Musculoskeletal: no symptoms reported Skin: no symptoms reported Psychiatric/Neurological: See HPI Past Aingzvx-Ioqgdt-Egosjo Hx Patient Social History Alcohol Use: Denies Use Recreational Drug Use: No Smoking Status: Current Everyday Smoker Type Used: Cigarettes 2nd Hand Smoke Exposure: No Recent Foreign Travel: No Contact w/Someone Who Travel: No Recent Infectious Disease Expo: No Recent Hopitalizations: No Immunizations Up To Date Tetanus Booster (TDap): Unknown PED Vaccines UTD: Yes Seasonal Allergies Seasonal Allergies: No Surgeries History of Surgeries: Yes Surgeries: Gallbladder, Tonsillectomy Respiratory History of Respiratory Disorde: No Cardiovascular History of Cardiac Disorders: No Neurological History of Neurological Disord: Yes Neurological Disorders: Headaches /Migraines Reproductive System : No Genitourinary History of Genitourinary Disor: No Gastrointestinal History of Gastrointestinal Di: Yes Gastrointestinal Disorders: Gall Bladder Disease Musculoskeletal History of Musculoskeletal Dis: No Endocrine History of Endocrine Disorders: No HEENT History of HEENT Disorders: No Cancer History of Cancer: No Psychosocial History of Psychiatric Problem: Yes Behavioral Health Disorders: Anxiety Integumentary History of Skin or Integumenta: No Blood Transfusions History of Blood Disorders: No Family Medical History Significant Family History: No Pertinent Family Hx Physical Exam Vital Signs Vital Signs - First Documented 05/16/17 08:40 Temp 98.9 Pulse 74 Resp 16 B/P (MAP) 158/91 (113) Pulse Ox 98 O2 Delivery Room Air Capillary Refill : Less Than 3 Seconds General Appearance: WD/WN, no apparent distress HEENT: PERRL/EOMI, normal ENT inspection Cardiovascular: regular rate, rhythm, no edema Respiratory: lungs clear, normal breath sounds, no respiratory distress, no accessory muscle use Gastrointestinal: non tender, soft Extremities: normal inspection Psychiatric: alert, oriented x 3 Crainal Nerves: normal hearing, normal speech, PERRL Motor/Sensory: no motor deficit, no sensory deficit Skin: normal color, warm/dry Progress/Results/Core Measures Results/Orders My Orders Orders - DONNA GILL MD Saline Lock/Iv-Start (05/16/17 09:13) Ns Iv 1000 Ml (Sodium Chloride 0.9%) (05/16/17 09:13) Promethazine Injection (Phenergan Injec (05/16/17 09:15) Fentanyl Injection (Sublimaze Injection (05/16/17 09:15) Orphenadrine Injection (Norflex Injectio (05/16/17 09:15) Medications Given in ED Current Medications Medications Dose Ordered Sig/Phi Route Start Time Stop Time Status Last Admin Dose Admin Fentanyl Citrate 50 mcg ONCE ONCE IVP 05/16/17 09:15 05/16/17 09:16 DC 05/16/17 09:35 50 MCG Orphenadrine Citrate 60 mg ONCE ONCE IV 05/16/17 09:15 05/16/17 09:17 DC 05/16/17 09:35 60 MG Promethazine HCl 25 mg ONCE ONCE IVP 05/16/17 09:15 05/16/17 09:16 DC 05/16/17 09:34 25 MG Vital Signs/I&O Vital Sign - Last 12Hours 05/16/17 05/16/17 08:40 11:14 Temp 98.9 98.9 Pulse 74 70 Resp 16 16 B/P (MAP) 158/91 (113) 144/84 (113) Pulse Ox 98 98 O2 Delivery Room Air Blood Pressure Mean: 113 Progress Note : Progress Note Patient was treated with Phenergan for nausea. She was hydrated with IV fluids. Pain was treated with fentanyl and Norflex. She had good improvement in her symptoms and was ready for dismissal. Departure Impression Impression: Primary Impression: Acute confusional migraine Additional Impression: Nausea and vomiting Qualified Codes: R11.2 - Nausea with vomiting, unspecified Disposition: 01 HOME, SELF-CARE Condition: Improved Departure-Patient Inst. Decision time for Depature: 11:00 Referrals: RACHID NELSON MD (PCP/Family) Primary Care Physician Patient Instructions: Migraine Headache (DC) Add. Discharge Instructions: Drink plenty of clear liquids. Use of Zofran (ondansetron) as prescribed for nausea and vomiting. You may continue taking Tylenol (acetaminophen) up to 1000 mg every 6 hours as needed for pain. Discuss further management and prevention of migraines with your doctor. Consider being checked for vitamin D deficiency. Rest in a quiet, calm, dark environment for the remainder of the day. All discharge instructions reviewed with patient and/or family. Voiced understanding. Scripts Ondansetron (Zofran Odt) 4 Mg Tab.rapdis 4 MG SL Q4H Y for NAUSEA/VOMITING-1ST LINE, #10 TAB Prov: DONNA GILL MD 05/16/17 DONNA GILL MD May 16, 2017 11:10
[2017-05-16 11:14] VITALS: BP 144/84
== END 2017-05-16 11:14 | disposition home or self-care (01) ==
LOC: EDUNIT# 08:03 → ER 08:05
DX: G43.909 Migraine, unspecified, not intractable, without status migrainosus (principal); R11.2 Nausea with vomiting, unspecified; F41.9 Anxiety disorder, unspecified; F17.210 Nicotine dependence, cigarettes, uncomplicated; Z87.19 Personal history of other diseases of the digestive system; Z90.89 Acquired absence of other organs; Z88.6 Allergy status to analgesic agent; Z88.5 Allergy status to narcotic agent

== ENCOUNTER 2017-06-06 02:49 | Emergency (ER) | payer MEDICAID ==
[~2017-06-06] VITALS: Ht 170.2 cm; Wt 136.1 kg
[2017-06-06] MEDS ORDERED: AMIT25TA9 (03:22)
[2017-06-06] MEDS ORDERED: NS IV 1000 ML 1,000 ML IV SCH (03:29)
[2017-06-06] MEDS ORDERED: ORPHENADRINE 60 MG/2 ML (NORFLEX) AMP IV ONE (03:30)
[2017-06-06] MEDS ORDERED: fentaNYL INJECTION 100 MCG/2 ML AMP IVP ONE (03:30)
[2017-06-06] MEDS ORDERED: PROMETHAZINE INJ 25 MG/ML (PHENERGAN) AMP IVP ONE (03:30)
[2017-06-06] MEDS ORDERED: ONDA4TAB8 SL (04:25)
--- NOTE | 2017-06-06 04:25 | ED Headache ---
General Chief Complaint: Head/Cervical Problems Stated Complaint: HEAD PAIN Nursing Triage Note: HEADACHE Nursing Sepsis Screen: No Definite Risk Source: patient, old records Exam Limitations: no limitations History of Present Illness Date Seen by Provider: Jun 06, 2017 Time Seen by Provider: 03:23 Initial Comments This 26-year-old young lady presents to the emergency room with complaints of right-sided headache, nausea, and visual aura. Symptoms have been ongoing for 3 days. She has been taking Tylenol at home without benefit. She can identify no particular trigger. These symptoms are fairly consistent with her prior migraines. She has been seen in this ER previously and successfully treated for migraine. Allergies and Home Medications Allergies Coded Allergies: ketorolac (Unverified Adverse Reaction, Unknown, 01/27/17) meperidine (Unverified Adverse Reaction, Unknown, 01/27/17) Home Medications Butalb/Acetaminophen/Caffeine 1 Each Capsule, 1 EACH PO Q4H PRN for HEADACHE Prescribed by: DONNA LAZCANO on 02/15/17 0552 Clonazepam 0.5 Mg Tablet, 0.5 MG PO TID PRN for ANXIETY, (Reported) Omeprazole 40 Mg Capsule.dr, 40 MG PO DAILY Prescribed by: JENNIFER PEARSON on 05/05/17 1322 Ondansetron 4 Mg Tab.rapdis, 4 MG SL Q4H PRN for NAUSEA/VOMITING-1ST LINE Prescribed by: DONNA LAZCANO on 06/06/17 0425 Patient Home Medication List Home Medication List Reviewed: Yes Constitutional: no symptoms reported Eyes: See HPI Ears, Nose, Mouth, Throat: no symptoms reported Respiratory: no symptoms reported Cardiovascular: no symptoms reported Gastrointestinal: see HPI Genitourinary: no symptoms reported Musculoskeletal: no symptoms reported Skin: no symptoms reported Psychiatric/Neurological: See HPI Past Gukoaxp-Xovynf-Wemoxl Hx Patient Social History Alcohol Use: Denies Use Recreational Drug Use: No Type Used: Cigarettes 2nd Hand Smoke Exposure: No Recent Foreign Travel: No Contact w/Someone Who Travel: No Recent Infectious Disease Expo: No Recent Hopitalizations: No Immunizations Up To Date Tetanus Booster (TDap): Unknown PED Vaccines UTD: Yes Seasonal Allergies Seasonal Allergies: No Surgeries History of Surgeries: Yes Surgeries: Gallbladder, Tonsillectomy Respiratory History of Respiratory Disorde: No Cardiovascular History of Cardiac Disorders: No Neurological History of Neurological Disord: Yes Neurological Disorders: Headaches /Migraines Reproductive System : No Last Menstrual Period: May 30, 2017 Genitourinary History of Genitourinary Disor: No Gastrointestinal History of Gastrointestinal Di: Yes Gastrointestinal Disorders: Gall Bladder Disease Musculoskeletal History of Musculoskeletal Dis: No Endocrine History of Endocrine Disorders: No HEENT History of HEENT Disorders: No Cancer History of Cancer: No Psychosocial History of Psychiatric Problem: Yes Behavioral Health Disorders: Anxiety Integumentary History of Skin or Integumenta: No Blood Transfusions History of Blood Disorders: No Family Medical History Significant Family History: No Pertinent Family Hx Physical Exam Vital Signs Vital Signs - First Documented 06/06/17 03:15 Temp 97.8 Pulse 98 Resp 16 B/P (MAP) 130/86 (101) Pulse Ox 95 O2 Delivery Room Air Capillary Refill : Less Than 3 Seconds General Appearance: WD/WN, mild distress HEENT: PERRL/EOMI, normal ENT inspection, TMs normal, pharynx normal Cardiovascular: regular rate, rhythm, no edema, no murmur Respiratory: lungs clear, normal breath sounds, no respiratory distress, no accessory muscle use Extremities: normal inspection Psychiatric: alert, oriented x 3 Crainal Nerves: normal hearing, normal speech, PERRL Skin: normal color, warm/dry Progress/Results/Core Measures Results/Orders My Orders Orders - DONNA GILL MD Promethazine Injection (Phenergan Injec (06/06/17 03:30) Saline Lock/Iv-Start (06/06/17 03:29) Ns Iv 1000 Ml (Sodium Chloride 0.9%) (06/06/17 03:29) Orphenadrine Injection (Norflex Injectio (06/06/17 03:30) Fentanyl Injection (Sublimaze Injection (06/06/17 03:30) Medications Given in ED Current Medications Medications Dose Ordered Sig/Phi Route Start Time Stop Time Status Last Admin Dose Admin Fentanyl Citrate 50 mcg ONCE ONCE IVP 06/06/17 03:30 06/06/17 03:32 DC 06/06/17 03:47 50 MCG Orphenadrine Citrate 60 mg ONCE ONCE IV 06/06/17 03:30 06/06/17 03:32 DC 06/06/17 03:42 60 MG Promethazine HCl 25 mg ONCE ONCE IVP 06/06/17 03:30 06/06/17 03:32 DC 06/06/17 03:42 25 MG Vital Signs/I&O Vital Sign - Last 12Hours 06/06/17 06/06/17 03:15 03:47 Temp 97.8 97.8 Pulse 98 Resp 16 B/P (MAP) 130/86 (101) Pulse Ox 95 O2 Delivery Room Air Blood Pressure Mean: 101 Progress Note : Progress Note Chart was reviewed. Patient was treated with the same cocktail of IV fluids and medications she was treated with during her last visit. This successfully aborted her migraine. Departure Impression Impression: Primary Impression: Migraine headache with aura Qualified Codes: G43.109 - Migraine with aura, not intractable, without status migrainosus Disposition: HOME, SELF-CARE Condition: Improved Departure-Patient Inst. Decision time for Depature: 04:20 Referrals: RACHID NELSON MD (PCP/Family) Primary Care Physician Patient Instructions: Migraine Headache (DC) Add. Discharge Instructions: Drink plenty of clear liquids. Take Tylenol for recurrent pain. Use Zofran as prescribed for nausea. Return to care if symptoms are not manageable at home. All discharge instructions reviewed with patient and/or family. Voiced understanding. Scripts Ondansetron (Zofran Odt) 4 Mg Tab.rapdis 4 MG SL Q4H Y for NAUSEA/VOMITING-1ST LINE, #10 TAB Prov: DONNA GILL MD 06/06/17 DONNA GILL MD Jun 06, 2017 04:25
[2017-06-06 04:39] VITALS: BP 124/87
== END 2017-06-06 04:39 | disposition home or self-care (01) ==
LOC: EDUNIT# 02:49 → ER 02:52
DX: G43.109 Migraine with aura, not intractable, without status migrainosus (principal); F41.9 Anxiety disorder, unspecified; Z87.19 Personal history of other diseases of the digestive system; Z90.89 Acquired absence of other organs; Z88.6 Allergy status to analgesic agent; Z88.5 Allergy status to narcotic agent
CPT/HCPCS: 96361; 96374; 96375

== ENCOUNTER 2017-08-11 23:09 | Emergency (ER) | payer MEDICAID ==
[~2017-08-11] VITALS: Ht 170.2 cm; Wt 136.1 kg
[~2017-08-11 23:09] MED LIST changes: +AMIT25TA9; +HYDR-700 PO
[2017-08-11] MEDS ORDERED: fentaNYL INJECTION 100 MCG/2 ML AMP IVP STA (23:22)
[2017-08-11] MEDS ORDERED: PROMETHAZINE INJ 25 MG/ML (PHENERGAN) AMP IVP STA (23:22)
[2017-08-11] MEDS ORDERED: ORPHENADRINE 60 MG/2 ML (NORFLEX) AMP IV STA (23:22)
[2017-08-11] MEDS ORDERED: NS IV 1000 ML 1,000 ML IV STA (23:22)
--- NOTE | 2017-08-11 23:39 | ED Headache ---
General Stated Complaint: MIGRAINE Source: patient Exam Limitations: no limitations History of Present Illness Date Seen by Provider: August 11, 2017 Time Seen by Provider: 23:15 Initial Comments Here with report of headache that she states is her migraine. More in the front this time then in the back. Has history of migraines at least monthly. She is on amitriptyline for migraines which sometimes works. does also have fibromyalgia and recently was started on Lyrica. Has nausea with this. This is typical. Seen in the past for the same with similar presentation. Multiple visits for migraines here. Timing/Duration: 24 hours Severity/Quality: moderate, severe Location: frontal Prior Headaches/Recent Trauma: frequent headaches Modifying Factors: worse with exposure to light Associated Symptoms: No confusion, No fever/chills; nausea/vomiting; No stiff neck, No vision changes, No weakness Allergies and Home Medications Allergies Coded Allergies: ketorolac (Unverified Adverse Reaction, Unknown, 01/27/17) meperidine (Unverified Adverse Reaction, Unknown, 01/27/17) Home Medications Butalb/Acetaminophen/Caffeine 1 Each Capsule, 1 EACH PO Q4H PRN for HEADACHE Prescribed by: DONNA LAZCANO on 02/15/17 0552 Clonazepam 0.5 Mg Tablet, 0.5 MG PO TID PRN for ANXIETY, (Reported) Hydroxyzine HCl 25 Mg Tablet, 25 MG PO TID PRN for ITCHING Prescribed by: DONNA LAZCANO on 07/03/17 0447 Omeprazole 40 Mg Capsule.dr, 40 MG PO DAILY Prescribed by: JENNIFER PEARSON on 05/05/17 1322 Ondansetron 4 Mg Tab.rapdis, 4 MG SL Q4H PRN for NAUSEA/VOMITING-1ST LINE Prescribed by: DONNA LAZCANO on 06/06/17 0425 Patient Home Medication List Home Medication List Reviewed: Yes Review of Systems Constitutional: see HPI; No chills, No fever Eyes: Denies Blindness; Photophobia Ears, Nose, Mouth, Throat: no symptoms reported Respiratory: no symptoms reported Cardiovascular: no symptoms reported Gastrointestinal: see HPI; No abdominal pain; nausea, vomiting Genitourinary: no symptoms reported Musculoskeletal: muscle pain (chronic), neck pain (chronic) All Other Systems Reviewed Negative Unless Noted: Yes Past Wtjqrfg-Hjppzl-Ttbaso Hx Past Med/Social Hx: Reviewed Nursing Past Med/Soc Hx Patient Social History Alcohol Use: Denies Use Recreational Drug Use: No Smoking Status: Current Everyday Smoker Type Used: Cigarettes 2nd Hand Smoke Exposure: No Recent Foreign Travel: No Contact w/Someone Who Travel: No Recent Hopitalizations: No Immunizations Up To Date Tetanus Booster (TDap): Unknown PED Vaccines UTD: Yes Seasonal Allergies Seasonal Allergies: No Past Medical History Surgeries: Yes Gallbladder, Tonsillectomy Respiratory: No Cardiac: No Neurological: Yes Headaches /Migraines Genitourinary: No Gastrointestinal: Yes Gall Bladder Disease Musculoskeletal: Yes Fibromyalgia Endocrine: No HEENT: No Cancer: No Psychosocial: Yes Anxiety, Depression Integumentary: No Blood Disorders: No Family Medical History Reviewed Nursing Family Hx Cancer Physical Exam Vital Signs Vital Signs - First Documented 08/11/17 23:15 Temp 97.2 Pulse 104 Resp 20 B/P (MAP) 148/102 (117) Pulse Ox 97 O2 Delivery Room Air Capillary Refill : General Appearance: WD/WN, mild distress, obese HEENT: PERRL/EOMI, pharynx normal Neck: non-tender, full range of motion, supple, normal inspection Cardiovascular: regular rate, rhythm, no murmur Respiratory: lungs clear, normal breath sounds Gastrointestinal: non tender, soft Back: normal inspection, no CVA tenderness, no vertebral tenderness Extremities: non-tender, normal inspection Psychiatric: alert, oriented x 3 Crainal Nerves: normal hearing, normal speech, PERRL Coordination/Gait: normal gait Motor/Sensory: no motor deficit, no sensory deficit Skin: normal color, warm/dry Progress/Results/Core Measures Results/Orders My Orders Orders - CARTER ORTIZ MD Fentanyl Injection (Sublimaze Injection (08/11/17 23:22) Orphenadrine Injection (Norflex Injectio (08/11/17 23:22) Promethazine Injection (Phenergan Injec (08/11/17 23:22) Ns Iv 1000 Ml (Sodium Chloride 0.9%) (08/11/17 23:22) Saline Lock/Iv-Start (08/11/17 23:22) Vital Signs/I&O 08/11/17 23:15 Temp 97.2 Pulse 104 Resp 20 B/P (MAP) 148/102 (117) Pulse Ox 97 O2 Delivery Room Air Progress Progress Note : Progress Note Seen and evaluated the patient. I have reviewed patient's previous medical history including abortive migraine therapy. We will give similar today including normal saline 1 L bolus, Phenergan 25 mg IV, Norflex 60 mg IV and fentanyl 50 g IV. Monitor patient. 0055: Patient better and sleeping peacefully. Discharged home with return precautions. Patient verbalize understanding of instructions and agreement with plan. Departure Impression Primary Impression: Migraine Qualified Codes: G43.909 - Migraine, unspecified, not intractable, without status migrainosus Disposition: HOME, SELF-CARE Condition: Improved Departure-Patient Inst. Decision time for Depature: 01:01 Referrals: RACHID NELSON MD (PCP/Family) Primary Care Physician Patient Instructions: Migraine Headache (DC) Add. Discharge Instructions: Continue home medications as previously prescribed. Drink plenty of fluids. Follow-up with your Dr. in one to 2 days for recheck and further evaluation. Return for worse pain, fever, vomiting, weakness, rhythm problems or other concerns as needed. CARTER ORTIZ MD August 11, 2017 23:39
[2017-08-12 01:45] VITALS: BP 132/56
== END 2017-08-12 01:45 | disposition home or self-care (01) ==
LOC: EDUNIT# 23:09 → ER 23:11
DX: G43.909 Migraine, unspecified, not intractable, without status migrainosus (principal); F41.9 Anxiety disorder, unspecified; F32.9 Major depressive disorder, single episode, unspecified; F17.210 Nicotine dependence, cigarettes, uncomplicated; Z90.89 Acquired absence of other organs; Z88.6 Allergy status to analgesic agent; Z87.448 Personal history of other diseases of urinary system; Z88.8 Allergy status to other drugs, medicaments and biological substances
CPT/HCPCS: 96361; 96374; 96375

== ENCOUNTER 2017-08-22 20:47 | Emergency (ER) | payer MEDICAID ==
[~2017-08-22] VITALS: Ht 170.2 cm; Wt 136.1 kg
[2017-08-22] MEDS ORDERED: PREG75CA (21:02)
[2017-08-22] MEDS ORDERED: IBUP-1780 (21:02)
[2017-08-22] MEDS ORDERED: NS IV 1000 ML 1,000 ML IV SCH (21:14)
[2017-08-22] MEDS ORDERED: ONDANSETRON 4 MG/2 ML (SDV) Z0FRAN IVP ONE (21:15)
[2017-08-22 21:28] LABS: BILIRUBIN,URINE NEGATIVE (NEGATIVE); CLARITY,URINE CLEAR; COLOR,URINE YELLOW; GLUCOSE, URINE (UA) NEGATIVE (NEGATIVE); KETONES,URINE NEGATIVE (NEGATIVE); LEUKOCYTE ESTERASE ,URINE 1+ (NEGATIVE); NITRITE,URINE NEGATIVE (NEGATIVE); PH,URINE 7 (5-9); PROTEIN,URINE NEGATIVE (NEGATIVE); UROBILINOGEN,URINE NORMAL (NORMAL)
[2017-08-22 21:32] LABS: BASOPHILS % (AUTO) 0 % (0-10); EOSINOPHILS # (AUTO) 0.4 10^3/uL (0.0-0.3); EOSINOPHILS % (AUTO) 3 % (0-10); HEMATOCRIT 39 % (35-52); HEMOGLOBIN 12.7 G/DL (11.5-16.0); LYMPHOCYTES # (AUTO) 3.5 X 10^3 (1.0-4.0); LYMPHOCYTES % (AUTO) 29 % (12-44); MEAN CORPUSCULAR HEMOGLOBIN 28 PG (25-34); MEAN CORPUSCULAR HGB CONC 33 G/DL (32-36); MEAN CORPUSCULAR VOLUME 85 FL (80-99); MEAN PLATELET VOLUME 10.3 FL (7.4-10.4); MONOCYTES # (AUTO) 0.8 X 10^3 (0.0-1.0); MONOCYTES % (AUTO) 6 % (0-12); NEUTROPHILS # (AUTO) 7.4 X 10^3 (1.8-7.8); NEUTROPHILS % (AUTO) 62 % (42-75); PLATELET COUNT 379 10^3/uL (130-400); RED BLOOD COUNT 4.51 10^6/uL (4.35-5.85); RED CELL DISTRIBUTION WIDTH 14.9 % (10.0-14.5); WHITE BLOOD COUNT 12.1 10^3/uL (4.3-11.0)
--- OUTSIDE RECORDS SUMMARY | 2017-08-22 21:34 | XMS REPORT ---
Author Author LUIZA ESTIVEN Organization [facility] [place] Address [address] [place] [address] Care Team Providers Care Continuum Of Care Manager Name Role Phone TRESASURESH PINAA Unavailable PROBLEMS Type Condition ICD9-CM Code [id number] Code Onset Dates Condition Status SNOMED Code Problem Adjustment disorder with anxious mood F43.22 Active 59235762 Problem Moderate episode of recurrent major depressive disorder F33.1 Active 293817824 Problem Dysthymic disorder F34.1 Active 18521496 ALLERGIES Substance Reaction Event Type Date Status Demerol nausea and vomiting Drug Allergy Feb, Active ENCOUNTERS Encounter Location Date Diagnosis [place] [address] [address] Jun, Cervicalgia M54.2 and BMI 50.0-59.9, adult Z68.43 [place] [address] [address] Jun, Encounter for well woman exam with routine gynecological exam Z01.419 ; BMI 50.0-59.9, adult Z68.43 and General medical exam Z00.00 [place] [address] [place] [id number] [place] [address] Jun, Dysthymic disorder F34.1 [facility] [place] [address] [place] [id number] [place] [address] Jun, [place] [address] [address] Jun, [place] [address] [place] [id number] [place] [address] May, Other acute gastritis with hemorrhage K29.01 ; Adjustment disorder with anxious mood F43.22 and BMI 50.0-59.9, adult Z68.43 [facility] [place] [id number] [place] [address]689- 8[address] 28 Apr, 2017 [facility] [place] [address] [place] [id number] [place] [address]- [address] 26 Apr, 2017 [facility] [place] [address] [place] [id number] [place] [address]50- 79[address] 15 Apr, 2017 Adjustment disorder with anxious mood F43.22 and BMI 45.0- 49.9, adult Z68.42 [place] [address] [place] [id number] [place] [address]- [address] 13 Apr, 2017 Upper back pain M54.9 ; Temporal pain R51 and BMI 45.0-49.9 , adult Z68.42 [place] [address] [place] [id number] [place] [address] Mar, [facility] [place] [address] [place] [id number] [place] [address]- 8970 Mar, [facility] [address] [place] [id number] [place] [address] Mar, [facility] [place] [address] [place] [id number] [place] [address] 98[address] Mar, Moderate episode of recurrent major depressive disorder F33.1 [place] [address] [place] [id number] [place] [address]78- 125[address] Mar, Moderate episode of recurrent major depressive disorder F33.1 and BMI 45.0-49.9, adult Z68.42 [facility] [place] [address] [place] [id number] [place] [address]44- 0256 Mar, Chronic nonintractable headache, unspecified headache type R51 and Breast tenderness N64.4 [facility] [place] [address] [place] [id number] [place] [address]45- [address] 06 Feb, 2017 BMI 45.0-49.9, adult Z68.42 and Moderate episode of recurrent major depressive disorder F33.1 [place] [address] [id number] [place] [address] Feb, Dysthymic disorder F34.1 [facility] [address] [id number] [place] [address] 14 Jun, 2014 [facility] [address] [facility] [id number] [place] [address] Jun, [facility] [address] [id number] [place] [address] Sep, [facility] [address] [facility] [id number] [place] [address] Sep, [facility] [address] [facility] [id number] [place] [address] Aug, [facility] [address] [place] [id number] [address] July, [facility] [address] [place] [id number] [place] [address] 86[address] Mar, [facility] [address] [facility] [id number] [place] [address] 2[address] Mar, [facility] [address] [facility] [id number] [place] [address] May, [facility] [address] [facility] [id number] [place] [address]30 May, [facility] [address] [facility] [id number], [place] [address] Apr, [facility] [address] [facility] [id number] [place] [address] Feb, [facility] [address] [facility] [id number] [place] [address] Dec, [facility] [place] [facility] [address] [facility] [id number] [place] [address] Oct, [facility] [address] [facility] [id number] [place] [address] Dec, [facility] [place] [address] [facility] [id number], [place] [address] May, [facility] [place] [address] [facility] [id number] Feb, [facility] [place] [address] [facility] [id number][place] [address] Dec, IMMUNIZATIONS No Known Immunizations SOCIAL HISTORY Never Assessed REASON FOR VISIT intake, contract PLAN OF CARE Activity Details Follow Up 4 Weeks Reason: VITAL SIGNS Height 67 in 2017-02-16 Weight 303.2 lbs 2017-02-16 Heart Rate 96 bpm 2017-02-16 Respiratory Rate 20 2017-02-16 BMI 47.48 kg/m2 2017-02-16 Blood pressure systolic 134 mmHg 2017-02-16 Blood pressure diastolic 90 mmHg 2017-02-16 MEDICATIONS Medication Instructions Dosage Frequency Start Date End Date Duration Status Topamax 50 mg 1 Tablet by Oral route 3 daily for headache Aug, Not-Taking Klonopin 1 MG Orally Twice a day as needed for anxiety 1 tablet 30 days Active Trintellix 10 mg orally once a day 0.5 tablet every day for one week then take 1 tablet every day 24h Feb, Mar, 30 days Active Flexeril 5 mg 1 tablet by Oral route 3 times per day PRN for tremors Aug, Not-Taking RESULTS No Results PROCEDURES No Known procedures INSTRUCTIONS MEDICATIONS ADMINISTERED No Known Medications MEDICAL (GENERAL) HISTORY Type Description Date Medical History age 10-hit back of head on rock, loss consciousness Medical History Jan-2016 concussion x3 weeks Surgical History Gallbladder removed 2014 Surgical History Tonsils removed as a kid Hospitalization History childbirth
--- OUTSIDE RECORDS SUMMARY | 2017-08-22 21:34 | XMS REPORT ---
Author Author LISA ALFARO Organization [facility] Address [address] [place] [address] Care Team Providers Care Counter Clerk [employer] Name Role Phone LISA ALFARO Unavailable PROBLEMS Type Condition ICD9-CM Code [id number] Code Onset Dates Condition Status SNOMED Code Problem Adjustment disorder with anxious mood F43.22 Active 67520282 Problem Moderate episode of recurrent major depressive disorder F33.1 Active 786666600 Problem Dysthymic disorder F34.1 Active 56747090 ALLERGIES No Information ENCOUNTERS Encounter Location Date Diagnosis [place] [address] [address] Jun, 2017 Cervicalgia M54.2 and BMI 50.0-59.9, adult Z68.43 [facility] [address] [place] [id number] [place] [address]- [address] 24 Jun, 2017 Encounter for well woman exam with routine gynecological exam Z01.419 ; BMI 50.0-59.9, adult Z68.43 and General medical exam Z00.00 [place] [address] [place] [id number] [place] [address]- [address] 16 Jun, 2017 Dysthymic disorder F34.1 [facility] [address] [place] [id number] [place] [address]- [address] Jun, [facility] [address] [place] [id number] [place] [address]- [address] Jun, [place] [address] [address] May, Other acute gastritis with hemorrhage K29.01 ; Adjustment disorder with anxious mood F43.22 and BMI 50.0-59.9, adult Z68.43 [place] [address] [place] [address]- [address] 28 Apr, 2017 [facility] [address] [place] [id number] [place] [address]- [address] 26 Apr, 2017 [facility] [address] [place] [id number] [place] [address]- [address] 15 Apr, 2017 Adjustment disorder with anxious mood F43.22 and BMI 45.0- 49.9, adult Z68.42 [place] [address] [address]- [address] 13 Apr, 2017 Upper back pain M54.9 ; Temporal pain R51 and BMI 45.0-49.9 , adult Z68.42 [place] [address] [address]- [address] Mar, [place] [address] [place] [id number] [place] [address]- [address] Mar, [facility] [address] [place] [id number] [place] [address] Mar, [facility] [address] [place] [id number] [place] [address]- 125[address] Mar, Moderate episode of recurrent major depressive disorder F33.1 [place] [address] [place] [id number] [place] [address]- [address] Mar, Moderate episode of recurrent major depressive disorder F33.1 and BMI 45.0-49.9, adult Z68.42 [place] [address] [place] [id number] [place] [address]- [address]805 Mar, Chronic nonintractable headache, unspecified headache type R51 and Breast tenderness N64.4 [place] [address] [place] [id number] [place] [address]- [address] 06 Feb, 2017 BMI 45.0-49.9, adult Z68.42 and Moderate episode of recurrent major depressive disorder F33.1 [place] [address] [address] Feb, Dysthymic disorder F34.1 [facility] [address] [facility] [id number], [place] [address] 14 Jun, 2014 [facility] [address] [facility] [id number], [place] [address]- [address] Jun, [facility] [address], [place] [address] Sep, [facility] [address] [facility] [id number], [place] [address]- [address] Sep, [facility] [id number] [place] [address]82- 6238 Aug, [facility] [address] [place] [id number], [place] [address] July, [facility] [id number] [place] [address]72- 2462 Mar, [facility] [address], [place] [address]- [address] Mar, [facility] [address], [place] [address] May, [facility] [address], [place] [address] May, [facility] [address], [place] [address]- 8[address] Apr, [facility] [address] [facility] [id number], [place] [address]- 97[address] Feb, [facility] [address] [place] [id number], [place] [address]- 37[address] Dec, [facility] [address] [place] [id number], [place] [address]- [address]65 Oct, [facility] [address], [place] [address]- [address] Dec, [facility] [address] [facility] [id number] [place] [address]- [address]54 May, [facility] [address] [facility] [id number], [place] [address]- [address] Feb, [facility] [address] [facility] [id number] [place] [address]- [address] Dec, IMMUNIZATIONS No Known Immunizations SOCIAL HISTORY Never Assessed REASON FOR VISIT BH intake, Depression. PLAN OF CARE Activity Details Follow Up 1 Week Reason:depression VITAL SIGNS MEDICATIONS Medication Instructions Dosage Frequency Start Date End Date Duration Status Flexeril 5 mg 1 tablet by Oral route 3 times per day PRN for tremors Aug, Not-Taking Klonopin Active Topamax 50 mg 1 Tablet by Oral route 3 daily for headache Aug, Not-Taking RESULTS No Results PROCEDURES Procedure Date Ordered Result Body Site Psych diagnostic evaluation, established patient Feb 11, 2017 INSTRUCTIONS MEDICATIONS ADMINISTERED No Known Medications MEDICAL (GENERAL) HISTORY Type Description Date Medical History age 10-hit back of head on rock, loss consciousness Medical History Jan-2016 concussion x3 weeks Surgical History Gallbladder removed 2014 Surgical History Tonsils removed as a kid Hospitalization History childbirth
[2017-08-22 21:36] LABS: BACTERIA,URINE FEW /HPF
[2017-08-22 21:37] LABS: SQUAMOUS EPITHELIAL CELL,UR 25-50 /HPF
--- NOTE | 2017-08-22 21:47 | ED Abdominal Pain ---
General Chief Complaint: Abdominal/GI Problems Stated Complaint: HEADACHE, VOMITING Nursing Triage Note: vomitting, nausea, headache Sepsis Screen: No Definite Risk History of Present Illness Date Seen by Provider: Aug 22, 2017 Time Seen by Provider: 21:05 Initial Comments 26-year-old female Patient reports vomiting since last evening. She has had small sips of Sprite and was able to take ibuprofen prior to arrival. She's had a previous cholecystectomy no other abdominal surgeries. Timing/Duration: 12 Hours Severity/Quality: Moderate Location: Generalized Abdomen Radiation: No Radiation Associated Symptoms: Nausea/Vomiting Allergies and Home Medications Allergies Coded Allergies: ketorolac (Unverified Adverse Reaction, Unknown, 01/27/17) meperidine (Unverified Adverse Reaction, Unknown, 01/27/17) Home Medications Butalb/Acetaminophen/Caffeine 1 Each Capsule, 1 EACH PO Q4H PRN for HEADACHE Prescribed by: DONNA LAZCANO on 02/15/17 0552 Hydroxyzine HCl 25 Mg Tablet, 25 MG PO TID PRN for ITCHING Prescribed by: DONNA LAZCANO on 07/03/17 0447 Patient Home Medication List Home Medication List Reviewed: Yes Review of Systems Constitutional: no symptoms reported, see HPI Gastrointestinal: See HPI, Abdominal Pain; Denies Diarrhea; Nausea, Poor Appetite, Poor Fluid Intake, Vomiting All Other Systems Reviewed Negative Unless Noted: Yes Past Frsnarr-Kulyhu-Wffhjx Hx Past Med/Social Hx: Reviewed Nursing Past Med/Soc Hx Patient Social History Alcohol Use: Denies Use Recreational Drug Use: No Smoking Status: Current Everyday Smoker Type Used: Cigarettes 2nd Hand Smoke Exposure: No Recent Foreign Travel: No Contact w/Someone Who Travel: No Recent Infectious Disease Expo: No Recent Hopitalizations: No Immunizations Up To Date Tetanus Booster (TDap): Unknown PED Vaccines UTD: Yes Seasonal Allergies Seasonal Allergies: No Past Medical History Surgeries: Yes Gallbladder, Tonsillectomy Respiratory: No Cardiac: No Neurological: Yes Headaches /Migraines Genitourinary: No Gastrointestinal: Yes Gall Bladder Disease Musculoskeletal: Yes Fibromyalgia Endocrine: No HEENT: No Cancer: No Psychosocial: Yes Anxiety, Depression Integumentary: No Blood Disorders: No Family Medical History Cancer Physical Exam Vital Signs Vital Signs - First Documented 08/22/17 20:50 Temp 97.7 Pulse 90 Resp 18 B/P (MAP) 162/91 (114) Pulse Ox 98 O2 Delivery Room Air Capillary Refill : Less Than 3 Seconds General Appearance: WD/WN, no apparent distress HEENT: PERRL/EOMI, normal ENT inspection, TMs normal, pharynx normal, other ( oral mucosa pink and moist) Neck: non-tender, full range of motion, supple, normal inspection Respiratory: chest non-tender, lungs clear, normal breath sounds Cardiovascular: normal peripheral pulses, regular rate, rhythm, no murmur Gastrointestinal: normal bowel sounds, soft, distended; No guarding, No rebound ; tenderness (generalized) Extremities: normal range of motion, non-tender, normal inspection, no pedal edema, normal capillary refill Back: normal inspection, no CVA tenderness Neurologic/Psychiatric: no motor/sensory deficits, alert, normal mood/affect, oriented x 3 Skin: normal color, warm/dry, other (skin turgor less than 2 seconds) Progress/Results/Core Measures Results/Orders Lab Results Laboratory Tests Test 08/22/17 21:13 08/22/17 21:22 Range/Units Urine Color YELLOW Urine Clarity CLEAR Urine pH 7 5-9 Urine Specific [place] 1.010 L 1.016-1.022 Urine Protein NEGATIVE NEGATIVE Urine Glucose (UA) NEGATIVE NEGATIVE Urine Ketones NEGATIVE NEGATIVE Urine Nitrite NEGATIVE NEGATIVE Urine Bilirubin NEGATIVE NEGATIVE Urine Urobilinogen NORMAL NORMAL MG/DL Urine Leukocyte Esterase 1+ H NEGATIVE Urine RBC (Auto) 4+ H NEGATIVE Urine RBC 2-5 H /HPF Urine WBC 2-5 /HPF Urine Squamous Epithelial Cells 25-50 H /HPF Urine Crystals NONE /LPF Urine Bacteria FEW H /HPF Urine Casts NONE /LPF Urine Mucus LARGE H /LPF Urine Culture Indicated NO White Blood Count 12.1 H 4.3-11.0 10^3/uL Red Blood Count 4.51 4.35-5.85 10^6/uL Hemoglobin 12.7 11.5-16.0 G/DL Hematocrit 39 35-52 % Mean Corpuscular Volume 85 80-99 FL Mean Corpuscular Hemoglobin 28 25-34 PG Mean Corpuscular Hemoglobin Concent 33 32-36 G/DL Red Cell Distribution Width 14.9 H 10.0-14.5 % Platelet Count 379 130-400 10^3/uL Mean Platelet Volume 10.3 7.4-10.4 FL Neutrophils (%) (Auto) 62 42-75 % Lymphocytes (%) (Auto) 29 12-44 % Monocytes (%) (Auto) 6 0-12 % Eosinophils (%) (Auto) 3 0-10 % Basophils (%) (Auto) 0 0-10 % Neutrophils # (Auto) 7.4 1.8-7.8 X 10^3 Lymphocytes # (Auto) 3.5 1.0-4.0 X 10^3 Monocytes # (Auto) 0.8 0.0-1.0 X 10^3 Eosinophils # (Auto) 0.4 H 0.0-0.3 10^3/uL Basophils # (Auto) 0.0 0.0-0.1 10^3/uL Sodium Level 141 135-145 MMOL/L Potassium Level 4.0 3.6-5.0 MMOL/L Chloride Level 110 H 98-107 MMOL/L Carbon Dioxide Level 21 21-32 MMOL/L Anion Gap 10 5-14 MMOL/L Blood Urea Nitrogen 12 7-18 MG/DL Creatinine 0.69 0.60-1.30 MG/DL Estimat Glomerular Filtration Rate > 60 BUN/Creatinine Ratio 17 Glucose Level 94 70-105 MG/DL Calcium Level 9.0 8.5-10.1 MG/DL Total Bilirubin 0.3 0.1-1.0 MG/DL Aspartate Amino Transf (AST/SGOT) 13 5-34 U/L Alanine Aminotransferase (ALT/SGPT) 26 0-55 U/L Alkaline Phosphatase 92 40-136 U/L Total Protein 6.8 6.4-8.2 GM/DL Albumin 3.8 3.2-4.5 GM/DL My Orders Orders - CANDY SCOTT Saline Lock/Iv-Start (08/22/17 21:14) Ns Iv 1000 Ml (Sodium Chloride 0.9%) (08/22/17 21:14) Ondansetron Injection (Zofran Injectio (08/22/17 21:15) Cbc With Automated Diff (08/22/17 21:14) Comprehensive Metabolic Panel (08/22/17 21:14) Ua Culture If Indicated (08/22/17 21:14) Urine Bedside (08/22/17 21:14) Acetaminophen Tablet/Caplet (Tylenol T (08/22/17 22:13) Rx-Ondansetron Po (Rx-Zofran Po) (08/22/17 22:13) Medications Given in ED Current Medications Medications Dose Ordered Sig/Phi Route Start Time Stop Time Status Last Admin Dose Admin Ondansetron HCl 8 mg ONCE ONCE IVP 08/22/17 21:15 08/22/17 21:16 DC 08/22/17 21:26 8 MG Vital Signs/I&O 08/22/17 08/22/17 08/22/17 20:50 22:26 22:27 Temp 97.7 97.7 97.7 Pulse 90 90 Resp 18 18 B/P (MAP) 162/91 (114) 162/91 (114) Pulse Ox 98 98 O2 Delivery Room Air Blood Pressure Mean: 114 Urine -Bedside: Negative Progress Progress Note : Time: 21:05 Progress Note Initial evaluation completed, recommended CBC, CMP, UA, hCG, Zofran 8 mg IV, and normal saline 1 L IV. Will monitor. 2310 patient reports headache is still slightly present but nausea and vomiting has improved. Will give Tylenol 650 mg orally for headache. Discharge instructions and return precautions reviewed with the patient. All questions answered. Departure Impression Primary Impression: Gastroenteritis Additional Impression: Nausea and vomiting Qualified Codes: G43.A1 - Cyclical vomiting, intractable Disposition: 01 HOME, SELF-CARE Condition: Against Medical Advice Departure-Patient Inst. Decision time for Depature: 23:10 Referrals: NO,LOCAL PHYSICIAN (PCP/Family) Primary Care Physician Patient Instructions: Acute Abdomen (Belly Pain), Adult (DC), Nausea and Vomiting, Adult (DC) Add. Discharge Instructions: Clear liquid diet for the next 4 hours. If no further nausea and vomiting he may progress diet as tolerated. Uses Zofran every 6-8 hours as needed for nausea or vomiting. Follow up with your primary care provider if symptoms are not improving or worsen. Return to emergency department for new, urgent health care problems. All discharge instructions reviewed with patient and/or family. Voiced understanding. CANDY SCOTT Aug 22, 2017 21:47
[2017-08-22 21:50] LABS: ALANINE AMINOTRANSFERASE 26 U/L (0-55); ALBUMIN 3.8 GM/DL (3.2-4.5); ALKALINE PHOSPHATASE 92 U/L (40-136); BILIRUBIN,TOTAL 0.3 MG/DL (0.1-1.0); BUN/CREATININE RATIO 17; CARBON DIOXIDE 21 MMOL/L (21-32); CHLORIDE 110 MMOL/L (98-107); CREATININE SERUM 0.69 MG/DL (0.60-1.30); GFR ESTIMATED > 60; GLUCOSE 94 MG/DL (70-105); SODIUM 141 MMOL/L (135-145); TOTAL PROTEIN 6.8 GM/DL (6.4-8.2)
[2017-08-22] MEDS ORDERED: RX-ONDANSETRON 4 MG ODT (ZOFRAN) PPK #4 PO STA (22:13)
[2017-08-22] MEDS ORDERED: ACETAMINOPHEN 325 MG TABLET/CAPLET (TYLENOL) PO STA (22:13)
[2017-08-22 22:27] VITALS: BP 162/91
== END 2017-08-22 22:27 | disposition home or self-care (01) ==
LOC: EDUNIT# 20:47 → ER 20:49
DX: K52.9 Noninfective gastroenteritis and colitis, unspecified (principal); G43.909 Migraine, unspecified, not intractable, without status migrainosus; F41.9 Anxiety disorder, unspecified; F17.210 Nicotine dependence, cigarettes, uncomplicated; Z87.19 Personal history of other diseases of the digestive system; Z90.89 Acquired absence of other organs; Z88.6 Allergy status to analgesic agent; Z90.49 Acquired absence of other specified parts of digestive tract
CPT/HCPCS: 36415; 80053; 81000; 84703; 85025; 96361; 96374

== ENCOUNTER 2017-09-11 14:48 | Emergency (ER) | payer BC, MEDICAID ==
[~2017-09-11] VITALS: Ht 170.2 cm; Wt 136.1 kg
[~2017-09-11 14:48] MED LIST changes: +IBUP-1780; +PREG75CA
--- OUTSIDE RECORDS SUMMARY | 2017-09-11 14:54 | XMS REPORT ---
Author Author LUIZA ESTIVEN Organization [facility] Address [address] [place] [address] Care Team Providers Care Director Of Manufacturing Name Role Phone LUIZA ESTIVEN Unavailable PROBLEMS Type Condition ICD9-CM Code [id number] Code Onset Dates Condition Status SNOMED Code Problem Seasonal allergies J30.2 Active 882210527 Problem Adjustment disorder with anxious mood F43.22 Active 49338470 Problem Moderate episode of recurrent major depressive disorder F33.1 Active 884719450 Problem Dysthymic disorder F34.1 Active 01750171 ALLERGIES No Information ENCOUNTERS Encounter Location Date Diagnosis [facility] IN [facility] [id number] [place] [address] Aug, Viral upper respiratory tract infection J06.9 ; Seasonal allergies J30.2 and BMI 45.0-49.9, adult Z68.42 [facility] [id number] [place] [address] 34[address]- 1283 Jun, Cervicalgia M54.2 and BMI 50.0-59.9, [address] [facility] [id number] [place] [address] 13923- 7718 24 Jun, 2017 Encounter for well woman exam with routine gynecological exam Z01.419 ; BMI 50.0-59.9, adult Z68.43 and General medical exam Z00.00 [facility] [id number] [place] [address]35- 1756 Jun, Dysthymic disorder F34.1 [facility] [id number] [place] [address] 53868- 9315 Jun, [facility] [id number] [place] [address] 61835- 9355 Jun, [place] [id number] [place] [address]1984[address] 9007 May, Other acute gastritis with hemorrhage K29.01 ; Adjustment disorder with anxious mood F43.22 and BMI 50.0-59.9, adult Z68.43 [place] [id number] [place] [address]7119- 2710 28 Apr, 2017 [facility] [address] [address] 26 Apr, 2017 [facility] [id number] [place] [address] 27527- 5766 15 Apr, 2017 Adjustment disorder with anxious mood F43.22 and BMI 45.0- 49.9, adult Z68.42 [place] [id number] [place] [address] 67749- 5925 13 Apr, 2017 Upper back pain M54.9 ; Temporal pain R51 and BMI 45.0-49.9 , adult Z68.42 [place] [id number] [place] [address] 10578- 4605 Mar, [facility] [id number] [place] [address]- 9767 Mar, [facility] [id number] [place] [address]3876 [address]72 Mar, [facility] [id number] [place] [address] 75463- 5940 Mar, Moderate episode of recurrent major depressive disorder F33.1 [facility] [id number] [place] [address] 24820- 1661 Mar, Moderate episode of recurrent major depressive disorder F33.1 and BMI 45.0-49.9, adult Z68.42 [place] [address] [place] [address] 12596- 5031 Mar, Chronic nonintractable headache, unspecified headache type R51 and Breast tenderness N64.4 [place] [address] [place] [address] Feb, BMI 45.0-49.9, adult Z68.42 and Moderate episode of recurrent major depressive disorder F33.1 [facility] [address] [place] [address] Feb, Dysthymic disorder F34.1 [facility] [id number] [place] [address], [place] [address] 14 Jun, 2014 [facility] [address] [facility] [id number] [place] [address] Jun, [facility] [id number] [place] [address], [place] [address] Sep, [facility] [id number] [place] [address] Sep, [facility] [id number] [place] [address] Aug, [facility] [address] [place] [address] July, [facility] [address] [place] [address] Mar, [facility] [address] [place] [address] Mar, [facility] [address] [address] May, [facility] [id number] [place] [address] May, [facility] [address] [place] [address] 47[address] Apr, [facility] [address] [place] [address] Feb, [facility] [address] [address] Dec, [facility] [address] [facility] [id number] [address] Oct, [facility] [id number] [address] Dec, [facility] [address] [facility] [id number] [address] May, [facility] [id number], [place] [address] Feb, [facility] [address] [facility] [id number], [place] [address]46 Dec, IMMUNIZATIONS No Known Immunizations SOCIAL HISTORY Never Assessed REASON FOR VISIT requesting a returned call PLAN OF CARE VITAL SIGNS MEDICATIONS No Known Medications RESULTS No Results PROCEDURES No Known procedures INSTRUCTIONS MEDICATIONS ADMINISTERED No Known Medications MEDICAL (GENERAL) HISTORY Type Description Date Medical History age 10-hit back of head on rock, loss consciousness Medical History Jan-2016 concussion x3 weeks Surgical History Gallbladder removed 2014 Surgical History Tonsils removed as a kid Hospitalization History childbirth
--- OUTSIDE RECORDS SUMMARY | 2017-09-11 14:54 | XMS REPORT ---
Author Author JAYCE KASPER [facility] Address [address] [place] [address] Care Team Providers Care Glove Operator Name Role Phone JAYCE KASPER Unavailable PROBLEMS Type Condition ICD9-CM Code KXA22-AT Code Onset Dates Condition Status SNOMED Code Problem Seasonal allergies J30.2 Active 443718817 Problem Adjustment disorder with anxious mood F43.22 Active 72192222 Problem Moderate episode of recurrent major depressive disorder F33.1 Active 545797896 Problem Dysthymic disorder F34.1 Active 47233807 ALLERGIES No Information ENCOUNTERS Encounter Location Date Diagnosis [facility] IN [facility] [id number] [place] [address] Aug, Viral upper respiratory tract infection J06.9 ; Seasonal allergies J30.2 and BMI 45.0-49.9, adult Z68.42 [facility] [id number] [place] [address] 14083- 2881 Jun, Cervicalgia M54.2 and BMI 50.0-59.9, adult Z68.43 [facility] [id number] [place] [address]- 1988 24 Jun, 2017 Encounter for well woman exam with routine gynecological exam Z01.419 ; BMI 50.0-59.9, adult Z68.43 and General medical exam Z00.00 [facility] [id number] [place] [address] 77037- 4694 Jun, Dysthymic disorder F34.1 [facility] [id number] [place] [address] 51812- 2913 Jun, [facility] [id number] [place] [address] 67407- 4354 Jun, [facility] [id number] [place] [address] 05924- 0523 May, Other acute gastritis with hemorrhage K29.01 ; Adjustment disorder with anxious mood F43.22 and BMI 50.0-59.9, adult Z68.43 [facility] [id number] [place] [address] 13150- 3014 28 Apr, 2017 [facility] [address] [address]- 6461 26 Apr, 2017 [facility] [id number] [place] [address] 75940- 2761 15 Apr, 2017 Adjustment disorder with anxious mood F43.22 and BMI 45.0- 49.9, adult Z68.42 [place] [id number] [place] [address] 24443- 8517 13 Apr, 2017 Upper back pain M54.9 ; Temporal pain R51 and BMI 45.0-49.9 , adult Z68.42 [place] [id number] [place] [address] 06089- 9816 Mar, [place] [id number] [place] [address] 60187- 7489 Mar, [facility] [id number] [place] [address] 25699 -[address] Mar, [facility] [id number] [place] [address] 27507- 4502 Mar, Moderate episode of recurrent major depressive disorder F33.1 [facility] [id number] [place] [address] 78470- 4307 Mar, Moderate episode of recurrent major depressive disorder F33.1 and BMI 45.0-49.9, adult Z68.42 [place] [id number] [place] [address] 63664- 6252 Mar, Chronic nonintractable headache, unspecified headache type R51 and Breast tenderness N64.4 [place] [address] [place] [address] Feb, BMI 45.0-49.9, adult Z68.42 and Moderate episode of recurrent major depressive disorder F33.1 [facility] [address] [place] [address]- 1846 Feb, Dysthymic disorder F34.1 [facility] [address] [place] [address]- 0736 14 Jun, 2014 [facility] [address] [place] [address]- 3546 Jun, [facility] [address] [place] [address]- 3166 Sep, [facility] [address] [place] [address]- 9070 Sep, [facility] [id number] [place] [address]- 7186 Aug, [facility] [address] [place] [address]- 8796 July, [facility] [address] [place] [address]- 9376 Mar, [facility] [address] [place] [address]- 9426 Mar, [facility] [address] [address]- [address] May, [facility] [id number] [address] 2546 May, [facility] [id number] [address]- 6266 Apr, [facility] [id number] [address]- 2546 Feb, [facility] [id number] [address]- 7056 Dec, [facility] [address] [facility] [id number] [place] [address]- 2546 Oct, [facility] [address] [facility] [id number] [address]- 2546 Dec, [facility] [address] [facility] [id number] [place] [address]- 2546 May, [facility] [address] [facility] [id number] [place] [address]- 2546 Feb, [facility] [address] [facility] [id number] [place] [address]- 2546 Dec, IMMUNIZATIONS No Known Immunizations SOCIAL HISTORY Never Assessed REASON FOR VISIT fell last noc and her neck is sore. pt ambulated in without difficulty. advised pt that she would need to go to the ER or come back on tuesday. yousuf pt would like to make an appt with her pcp. PLAN OF CARE VITAL SIGNS Height 67 in 2017-04-02 Weight 309.6 lbs 2017-04-02 Temperature 98.6 degrees Fahrenheit 2017-04-02 Heart Rate 74 bpm 2017-04-02 Respiratory Rate 20 2017-04-02 BMI 48.48 kg/m2 2017-04-02 Blood pressure systolic 136 mmHg 2017-04-02 Blood pressure diastolic 82 mmHg 2017-04-02 MEDICATIONS Medication Instructions Dosage Frequency Start Date End Date Duration Status Trintellix 20 mg Orally Once a day 1 tablet 24h Mar, 90 days Active Amitriptyline HCl 25 MG Orally Once a day 1 tablet 24h Mar, 30 day(s) Active Klonopin 1 MG Orally Twice a day as needed for anxiety 1 tablet 30 days Not-Taking RESULTS No Results PROCEDURES No Known procedures INSTRUCTIONS MEDICATIONS ADMINISTERED No Known Medications MEDICAL (GENERAL) HISTORY Type Description Date Medical History age 10-hit back of head on rock, loss consciousness Medical History Jan-2017 concussion x3 weeks Surgical History Gallbladder removed 2014 Surgical History Tonsils removed as a kid Hospitalization History childbirth
--- OUTSIDE RECORDS SUMMARY | 2017-09-11 14:54 | XMS REPORT ---
Author Author LUIZA ESTIVEN Organization [facility] Address [address] [place] [address] Care Team Providers Care Flute Grinder Name Role Phone LUIZA ESTIVEN Unavailable PROBLEMS Type Condition ICD9-CM Code UHR66-BC Code Onset Dates Condition Status SNOMED Code Problem Seasonal allergies J30.2 Active 877469619 Problem Adjustment disorder with anxious mood F43.22 Active 06739882 Problem Moderate episode of recurrent major depressive disorder F33.1 Active 714569063 Problem Dysthymic disorder F34.1 Active 38470690 ALLERGIES No Information ENCOUNTERS Encounter Location Date Diagnosis [facility] IN [facility] [id number] [place] [address] 95892 -5656 Aug, Viral upper respiratory tract infection J06.9 ; Seasonal allergies J30.2 and BMI 45.0-49.9, adult Z68.42 [facility] [id number] [place] [address] 80837- 9827 Jun, Cervicalgia M54.2 and BMI 50.0-59.9, adult Z68.43 [facility] [id number] [place] [address] 09904- 8954 Jun, Encounter for well woman exam with routine gynecological exam Z01.419 ; BMI 50.0-59.9, adult Z68.43 and General medical exam Z00.00 [facility] [address] [place] [address] 31600- 4095 Jun, Dysthymic disorder F34.1 [facility] [id number] [place] [address] 09803- 0645 Jun, [facility] [id number] [place] [address] 82015- 3018 Jun, [place] [address] [place] [address] 65290- 4497 May, Other acute gastritis with hemorrhage K29.01 ; Adjustment disorder with anxious mood F43.22 and BMI 50.0-59.9, adult Z68.43 [place] [id number] [place] [address] 35497- 3459 28 Apr, 2017 [facility] [address] [address]- 1271 26 Apr, 2017 [facility] [id number] [place] [address] 37140- 6215 15 Apr, 2017 Adjustment disorder with anxious mood F43.22 and BMI 45.0- 49.9, adult Z68.42 [place] [id number] [place] [address] 14336- 9636 13 Apr, 2017 Upper back pain M54.9 ; Temporal pain R51 and BMI 45.0-49.9 , adult Z68.42 [place] [id number] [place] [address] 85514- 6334 Mar, [facility] [id number] [place] [address] 19297- 0016 Mar, [facility] [address] [place] [address] 17599 -5136 Mar, [facility] [id number] [place] [address] 92272- 7458 Mar, Moderate episode of recurrent major depressive disorder F33.1 [facility] [id number] [place] [address] 75121- 1252 Mar, Moderate episode of recurrent major depressive disorder F33.1 and BMI 45.0-49.9, adult Z68.42 [place] [address] [place] [address] 31240- 7189 Mar, Chronic nonintractable headache, unspecified headache type R51 and Breast tenderness N64.4 [place] [address] [place] [address] 0864 Feb, BMI 45.0-49.9, adult Z68.42 and Moderate episode of recurrent major depressive disorder F33.1 [facility] [address] [place] [address] 2041 Feb, Dysthymic disorder F34.1 [facility] [id number] [place] [address], [place] [address]- 4317 14 Jun, 2014 [facility] [address] [facility] [id number] [place] [address]- 2865 Jun, [facility] [id number] [place] [address], [place] [address]- 6631 Sep, [facility] [id number] [place] [address]- 3038 Sep, [facility] [id number] [place] [address]- 3989 Aug, [facility] [address] [place] [address]- 3848 July, [facility] [address] [place] [address]- 4004 Mar, [facility] [address] [place] [address]- 2976 Mar, [facility] [address] [address] 6257 May, [facility] [id number] [place] [address]- 0860 May, [facility] [address] [place] [address]- 7006 Apr, [facility] [address] [place] [address]- 3179 Feb, [facility] [address] [address] 2546 Dec, [facility] [address] [facility] [id number] [address]- 2546 Oct, [facility] [id number] [address]- 2546 Dec, [facility] [id number] [address]- 2546 May, [facility] [id number], [place] [address] 2546 Feb, [facility] [address] [facility] [id number], [place] [address] 2546 Dec, IMMUNIZATIONS No Known Immunizations SOCIAL HISTORY Never Assessed REASON FOR VISIT Requests return call PLAN OF CARE VITAL SIGNS MEDICATIONS [...]
[2017-09-11 16:30] LABS: CLARITY,URINE VERY CLOUDY; COLOR,URINE AMBER; GLUCOSE, URINE (UA) NEGATIVE (NEGATIVE); KETONES,URINE 1+ (NEGATIVE); PH,URINE 6 (5-9); PROTEIN,URINE 2+ (NEGATIVE)
[2017-09-11 16:31] LABS: BACTERIA,URINE LARGE /HPF; BILIRUBIN,URINE NEGATIVE (NEGATIVE); LEUKOCYTE ESTERASE ,URINE 3+ (NEGATIVE); NITRITE,URINE NEGATIVE (NEGATIVE); RBC,URINE >100 /HPF; UROBILINOGEN,URINE 1 MG/DL (NORMAL); WBC,URINE 25-50 /HPF
[2017-09-11] MEDS ORDERED: SULF1TAB35 PO (17:24)
--- NOTE | 2017-09-11 17:24 | ED GU-Female ---
General Chief Complaint: -Female Stated Complaint: STOMACH PAIN,NAUSEA,VOMITTING Nursing Triage Note: TO ROOM WITH C/O LOW ABD PAIN FOR 3 WEEKS NAUSEA OFF AND ON MISSED AUGUST PEROID. STARTED TODAY. Nursing Sepsis Screen: No Definite Risk Source: patient Exam Limitations: no limitations History of Present Illness Date Seen by Provider: Sep 11, 2017 Time Seen by Provider: 17:20 Initial Comments to ER with suprapubic abdominal pain for 3 weeks, nausea, vomiting, her period in July was later than usual and she just now started her August period. Timing/Duration: other (3 weeks) Severity/Quality: moderate Location: suprapubic Activities at Onset: none Prior Genitourinary Problems: none Associated Symptoms: abdominal pain; No dysuria; nausea/vomiting Allergies and Home Medications Allergies Coded Allergies: ketorolac (Unverified Adverse Reaction, Unknown, 01/27/17) meperidine (Unverified Adverse Reaction, Unknown, 01/27/17) Home Medications Butalb/Acetaminophen/Caffeine 1 Each Capsule, 1 EACH PO Q4H PRN for HEADACHE Prescribed by: DONNA LAZCANO on 02/15/17 0552 Hydroxyzine HCl 25 Mg Tablet, 25 MG PO TID PRN for ITCHING Prescribed by: DONNA LAZCANO on 07/03/17 2097 Patient Home Medication List Home Medication List Reviewed: Yes Review of Systems Constitutional: see HPI; No chills, No fever EENTM: see HPI Respiratory: no symptoms reported Cardiovascular: no symptoms reported Gastrointestinal: abdominal pain, nausea Genitourinary: no symptoms reported Musculoskeletal: no symptoms reported Skin: no symptoms reported Psychiatric/Neurological: No Symptoms Reported Past Bbqbyrs-Iuhugu-Uqueix Hx Patient Social History Alcohol Use: Denies Use Recreational Drug Use: No Type Used: Cigarettes 2nd Hand Smoke Exposure: No Recent Foreign Travel: No Contact w/Someone Who Travel: No Recent Infectious Disease Expo: Yes Recent Hopitalizations: No Immunizations Up To Date Tetanus Booster (TDap): Unknown PED Vaccines UTD: Yes Seasonal Allergies Seasonal Allergies: No Past Medical History Surgeries: Yes Gallbladder, Tonsillectomy Respiratory: No Cardiac: No Neurological: Yes Headaches /Migraines Genitourinary: No Gastrointestinal: Yes Gall Bladder Disease Musculoskeletal: Yes Fibromyalgia Endocrine: No HEENT: No Cancer: No Psychosocial: Yes Anxiety, Depression Integumentary: No Blood Disorders: No Family Medical History Cancer Physical Exam Vital Signs Vital Signs - First Documented 09/11/17 15:44 Temp 96.7 Pulse 82 Resp 18 B/P (MAP) 150/100 (117) Pulse Ox 98 O2 Delivery Room Air Capillary Refill : Less Than 3 Seconds General Appearance: WD/WN, no apparent distress, obese HEENT: PERRL/EOMI, normal ENT inspection Neck: non-tender, full range of motion Respiratory: normal breath sounds, no respiratory distress, no accessory muscle use Gastrointestinal: normal bowel sounds, soft, tenderness (suprapubic) Extremities: normal range of motion, non-tender Neurologic/Psychiatric: alert, normal mood/affect, oriented x 3 Skin: normal color, warm/dry Progress/Results/Core Measures Suspected Sepsis Recent Fever Within 48 Hours: No Infection Criteria Present: None New/Unexplained Altered Menta: No Sepsis Screen: No Definite Risk SIRS Temperature:96.7 Pulse: 82 Respiratory Rate: 18 Blood Pressure 150 /100 Mean: 117 Results/Orders Lab Results Laboratory Tests Test 09/11/17 15:40 Range/Units Urine Color CHACE H Urine Clarity VERY CLOUDY H Urine pH 6 5-9 Urine Specific [place] 1.025 H 1.016-1.022 Urine Protein 2+ H NEGATIVE Urine Glucose (UA) NEGATIVE NEGATIVE Urine Ketones 1+ H NEGATIVE Urine Nitrite NEGATIVE NEGATIVE Urine Bilirubin NEGATIVE NEGATIVE Urine Urobilinogen 1 NORMAL MG/DL Urine Leukocyte Esterase 3+ H NEGATIVE Urine RBC (Auto) 5+ H NEGATIVE Urine RBC >100 H /HPF Urine WBC 25-50 H /HPF Urine Squamous Epithelial Cells 2-5 /HPF Urine Crystals NONE /LPF Urine Bacteria LARGE H /HPF Urine Casts NONE /LPF Urine Mucus NEGATIVE /LPF Urine Culture Indicated NO Urine Test NEGATIVE NEGATIVE My Orders Orders - JENNIFER PEARSON APRN Ua Culture If Indicated (09/11/17 15:59) Hcg,Qualitative Urine (09/11/17 16:33) Sulfamethoxazole/Trimet Ds Tab (Bactrim (09/11/17 17:30) Ondansetron Oral Dissolve Tab (Zofran (09/11/17 17:30) Vital Signs/I&O 09/11/17 15:44 Temp 96.7 Pulse 82 Resp 18 B/P (MAP) 150/100 (117) Pulse Ox 98 O2 Delivery Room Air Capillary Refill : Less Than 3 Seconds Blood Pressure Mean: 117 Departure Impression Primary Impression: Urinary tract infection Disposition: 01 HOME, SELF-CARE Condition: Stable Departure-Patient Inst. Decision time for Depature: 17:22 Referrals: NO,LOCAL PHYSICIAN (PCP/Family) Primary Care Physician Patient Instructions: Urinary Tract Infection, Adult (DC) Add. Discharge Instructions: 1. Drink plenty of fluids 2. Tylenol and Motrin for pain control 3. Antibiotics as directed. These are on the $4 list. Start them tomorrow.All discharge instructions reviewed with patient and/or family. Voiced understanding. Scripts Sulfamethoxazole/Trimethoprim (Bactrim Ds Tablet) 1 Each Tablet 1 EACH PO Q12HR, #10 TAB Prov: JENNFIER PEARSON APRN 09/11/17 JENNIFER PEARSON APRN Sep 11, 2017 17:24
[2017-09-11] MEDS ORDERED: ONDANSETRON 4 MG (ZOFRAN) ORAL DISSOLVE TAB PO ONE (17:30)
[2017-09-11] MEDS ORDERED: TRIM/SULFAMETH 160/800 (SEPTRA DS) TAB PO ONE (17:30)
[2017-09-11 17:52] VITALS: BP 150/100
== END 2017-09-11 17:36 | disposition home or self-care (01) ==
LOC: EDUNIT# 14:48 → ER 14:50
DX: N39.0 Urinary tract infection, site not specified (principal); G43.909 Migraine, unspecified, not intractable, without status migrainosus; F41.9 Anxiety disorder, unspecified; F32.9 Major depressive disorder, single episode, unspecified; Z87.448 Personal history of other diseases of urinary system; Z88.8 Allergy status to other drugs, medicaments and biological substances; Z88.4 Allergy status to anesthetic agent; Z90.89 Acquired absence of other organs
CPT/HCPCS: 81000; 84703; 99283

== ENCOUNTER 2017-09-28 01:00 | Emergency (ER) | payer BC, MEDICAID ==
[~2017-09-28] VITALS: Ht 170.2 cm; Wt 136.1 kg
[~2017-09-28 01:00] MED LIST changes: +SULF1TAB35 PO
--- OUTSIDE RECORDS SUMMARY | 2017-09-28 01:05 | XMS REPORT ---
Author Author LUIZA ESTIVEN Organization [facility] Address [address] [place] [address] Care Team Providers Care Hairspring Staker Name Role Phone LUIZA ESTIVEN Unavailable PROBLEMS Type Condition ICD9-CM Code FTV74-UD Code Onset Dates Condition Status SNOMED Code Problem Seasonal allergies J30.2 Active 716827901 Problem Adjustment disorder with anxious mood F43.22 Active 24670565 Problem Moderate episode of recurrent major depressive disorder F33.1 Active 409160295 Problem Dysthymic disorder F34.1 Active 76115070 ALLERGIES No Information ENCOUNTERS Encounter Location Date Diagnosis [facility] IN [facility] [id number] [place] [address] 74083 -0890 Aug, Viral upper respiratory tract infection J06.9 ; Seasonal allergies J30.2 and BMI 45.0-49.9, adult Z68.42 [facility] [id number] [place] [address] 17568- 3253 Jun, Cervicalgia M54.2 and BMI 50.0-59.9, adult Z68.43 [facility] [id number] [place] [address] 19449- 7102 24 Jun, 2017 Encounter for well woman exam with routine gynecological exam Z01.419 ; BMI 50.0-59.9, adult Z68.43 and General medical exam Z00.00 [facility] [address] [place] [address] 17273- 8215 Jun, Dysthymic disorder F34.1 [facility] [id number] [place] [address] 35103- 6457 Jun, [facility] [id number] [place] [address] 69534- 8407 Jun, [place] [address] [place] [address] 22311- 6952 May, Other acute gastritis with hemorrhage K29.01 ; Adjustment disorder with anxious mood F43.22 and BMI 50.0-59.9, adult Z68.43 [place] [id number] [place] [address] 54908- 7498 28 Apr, 2017 [facility] [address] 60[address]- 8407 26 Apr, 2017 [facility] [id number] [place] [address] 79363- 0212 15 Apr, 2017 Adjustment disorder with anxious mood F43.22 and BMI 45.0- 49.9, adult Z68.42 [place] [address] [place] [address] 10803- 1536 13 Apr, 2017 Upper back pain M54.9 ; Temporal pain R51 and BMI 45.0-49.9 , adult Z68.42 [place] [id number] [place] [address] 02957- 2896 Mar, [facility] [id number] [place] [address] 99769- 8207 Mar, [facility] [address] [place] [address] 40605 -1672 Mar, [facility] [id number] [place] [address] 38306- 2595 Mar, Moderate episode of recurrent major depressive disorder F33.1 [facility] [id number] [place] [address] 49259- 0695 Mar, Moderate episode of recurrent major depressive disorder F33.1 and BMI 45.0-49.9, adult Z68.42 [place] [address] [place] [address] 79696- 0912 Mar, Chronic nonintractable headache, unspecified headache type R51 and Breast tenderness N64.4 [place] [address] [place] [address]- 9679 Feb, BMI 45.0-49.9, adult Z68.42 and Moderate episode of recurrent major depressive disorder F33.1 [facility] [address] [place] [address]- 1158 Feb, Dysthymic disorder F34.1 [facility] [id number] [place] [address], [place] [address]- 0852 14 Jun, 2014 [facility] [address] [facility] [id number] [place] [address]- 4114 Jun, [facility] [id number] [place] [address], [place] [address]- 3491 Sep, [facility] [id number] [address]- 7988 Sep, [facility] [id number] [address]- 7688 Aug, [facility] [address] [address]- 5604 July, [facility] [id number] [address]- 1997 Mar, [facility] [id number] [address]- 3363 Mar, [facility] [address] [address]- 5377 May, [facility] [id number] [place] [address]- 1178 May, [facility] [id number] [address]- 7376 Apr, [facility] [id number] [address]- 4295 Feb, [facility] [address] [address] 2546 Dec, [facility] [address] [id number] [address]- 2546 Oct, [facility] [address] [id number] [address]- 2546 Dec, [facility] [address] [id number] [address]- 2546 May, [facility] [address] [id number] [address]- 2546 Feb, [facility] [address] [id number] [address]- 2546 Dec, IMMUNIZATIONS No Known Immunizations SOCIAL HISTORY Never Assessed REASON FOR VISIT Samples PLAN OF CARE VITAL SIGNS MEDICATIONS Medication Instructions Dosage Frequency Start Date End Date Duration Status Trintellix 20 mg Orally Once a day 1 tablet 24h Mar, 90 days Active RESULTS No Results PROCEDURES No Known procedures INSTRUCTIONS MEDICATIONS ADMINISTERED No Known Medications MEDICAL (GENERAL) HISTORY Type Description Date Medical History age 10-hit back of head on rock, loss consciousness Medical History Jan-2016 concussion x3 weeks Surgical History Gallbladder removed 2014 Surgical History Tonsils removed as a kid Hospitalization History childbirth
--- OUTSIDE RECORDS SUMMARY | 2017-09-28 01:05 | XMS REPORT ---
Author Author LUIZA ESTIVEN Organization [facility] Address [address] [place] [address] Care Team Providers Care Scrip Clerk Name Role Phone LUIZA ESTIVEN Unavailable PROBLEMS Type Condition ICD9-CM Code [id number] Code Onset Dates Condition Status SNOMED Code Problem Seasonal allergies J30.2 Active 765960261 Problem Adjustment disorder with anxious mood F43.22 Active 14854391 Problem Moderate episode of recurrent major depressive disorder F33.1 Active 910559571 Problem Dysthymic disorder F34.1 Active 52088416 ALLERGIES No Information ENCOUNTERS Encounter Location Date Diagnosis [facility] [id number] [place] [address] 50097 -8764 Aug, Viral upper respiratory tract infection J06.9 ; Seasonal allergies J30.2 and BMI 45.0-49.9, adult Z68.42 [facility] [id number] [place] [address] 58465- 7851 Jun, Cervicalgia M54.2 and BMI 50.0-59.9, adult Z68.43 [facility] [id number] [place] [address] 52284- 7230 24 Jun, 2017 Encounter for well woman exam with routine gynecological exam Z01.419 ; BMI 50.0-59.9, adult Z68.43 and General medical exam Z00.00 [facility] [address] [place] [address] 89168- 1555 Jun, Dysthymic disorder F34.1 [facility] [id number] [place] [address] 75034- 0268 Jun, [facility] [id number] [place] [address] 95000- 4207 Jun, [place] [address] [place] [address] 14747- 5115 May, Other acute gastritis with hemorrhage K29.01 ; Adjustment disorder with anxious mood F43.22 and BMI 50.0-59.9, adult Z68.43 [place] [id number] [place] [address] 20259- 6276 28 Apr, 2017 [facility] [address] [address]- 0313 26 Apr, 2017 [facility] [id number] [place] [address] 37618- 7572 15 Apr, 2017 Adjustment disorder with anxious mood F43.22 and BMI 45.0- 49.9, adult Z68.42 [place] [id number] [place] [address] 60818- 7548 13 Apr, 2017 Upper back pain M54.9 ; Temporal pain R51 and BMI 45.0-49.9 , adult Z68.42 [place] [id number] [place] [address] 31632- 1143 Mar, [facility] [id number] [place] [address] 73705- 8821 Mar, [facility] [address] [place] [address] 32603 -5674 Mar, [facility] [id number] [place] [address] 23001- 7169 Mar, Moderate episode of recurrent major depressive disorder F33.1 [facility] [id number] [place] [address] 97134- 0451 Mar, Moderate episode of recurrent major depressive disorder F33.1 and BMI 45.0-49.9, adult Z68.42 [place] [address] [place] [address] 29416- 1487 Mar, Chronic nonintractable headache, unspecified headache type R51 and Breast tenderness N64.4 [place] [address] [place] [address]- 7942 Feb, BMI 45.0-49.9, adult Z68.42 and Moderate episode of recurrent major depressive disorder F33.1 [facility] [address] [place] [address]- 8482 Feb, Dysthymic disorder F34.1 [facility] [id number] [place] [address], [place] [address]- 0968 14 Jun, 2014 [facility] [address] [facility] [id number] [place] [address]- 0587 Jun, [facility] [id number] [place] [address], [place] [address]- 4609 Sep, [facility] [id number] [place] [address]- 5555 Sep, [facility] [id number] [place] [address]- 8814 Aug, [facility] [address] [place] [address]- 8221 July, [facility] [address] [place] [address]- 0213 Mar, [facility] [address] [place] [address]- 4206 Mar, [facility] [address]00565100[place] [address]- 8744 May, [facility] [id number] [place] [address]- 4542 May, [facility] [address] [place] [address]- 2266 Apr, [facility] [address] [place] [address]- 5230 Feb, [facility] [address]00565100[place] [address] 2546 Dec, [facility] [address] [facility] [id number] [place] [address]- 2546 Oct, [facility] [address] [facility] [id number] [place] [address]- 2546 Dec, [facility] [address] [facility] [id number] [place] [address]- 2546 May, [facility] [address] [facility] [id number] [place] [address]- 2546 Feb, [facility] [address] [facility] [id number] [place] [address]- 2546 Dec, IMMUNIZATIONS No Known Immunizations SOCIAL HISTORY Never Assessed REASON FOR VISIT f/jonh Delgado RN PLAN OF CARE Activity Details Follow Up 3 Months Reason: VITAL SIGNS Height 67 in 2017-04-28 Weight 309 lbs 2017-04-28 Heart Rate 78 bpm 2017-04-28 BMI 48.39 kg/m2 2017-04-28 Blood pressure systolic 120 mmHg 2017-04-28 Blood pressure diastolic 78 mmHg 2017-04-28 MEDICATIONS Medication Instructions Dosage Frequency Start Date End Date Duration Status Amitriptyline HCl 25 MG Orally Once a day 1 tablet 24h Mar, 30 day(s) Active Tizanidine HCl 6 MG Orally Three times a day 1 capsule as needed 8h 13 Apr Active Trintellix 20 mg Orally Once a day 1 tablet 24h Mar, Active RESULTS No Results PROCEDURES No Known procedures INSTRUCTIONS MEDICATIONS ADMINISTERED No Known Medications MEDICAL (GENERAL) HISTORY Type Description Date Medical History age 10-hit back of head on rock, loss consciousness Medical History Jan-2016 concussion x3 weeks Surgical History Gallbladder removed 2014 Surgical History Tonsils removed as a kid Hospitalization History childbirth
--- OUTSIDE RECORDS SUMMARY | 2017-09-28 01:05 | XMS REPORT ---
Author Author RACHID NELSON Organization [facility] Address [address] [place] [address] Care Team Providers Care Marketing Database Coordinator Name Role Phone RACHID NELSON Unavailable PROBLEMS Type Condition ICD9-CM Code HPL90-ZE Code Onset Dates Condition Status SNOMED Code Problem Gastroesophageal reflux disease, esophagitis presence not specified K21.9 Active 944344845 Problem Seasonal allergies J30.2 Active 300510393 Problem Dysthymic disorder F34.1 Active 63645486 Problem Adjustment disorder with anxious mood F43.22 Active 26028436 Problem Moderate episode of recurrent major depressive disorder F33.1 Active 742083183 ALLERGIES Substance Reaction Event Type Date Status Demerol nausea and vomiting Drug Allergy May, Active ENCOUNTERS Encounter Location Date Diagnosis [facility] [id number] [place] [address] 67284- 9449 Sep, [facility] [id number] [place] [address] 18777- 5170 Sep, Nausea R11.0 ; Gastroesophageal reflux disease, esophagitis presence not specified K21.9 and BMI 50.0-59.9, adult Z68.43 [facility] [address] [place] [address] 85267 -0031 15 Aug, 2017 Viral upper respiratory tract infection J06.9 ; Seasonal allergies J30.2 and BMI 45.0-49.9, adult Z68.42 [facility] [id number] [place] [address] 61533- 1690 Jun, Cervicalgia M54.2 and BMI 50.0-59.9, adult Z68.43 [facility] [id number] [place] [address] 65097- 3448 Jun, Encounter for well woman exam with routine gynecological exam Z01.419 ; BMI 50.0-59.9, adult Z68.43 and General medical exam Z00.00 [facility] [id number] [place] [address] 00149- 9058 Jun, Dysthymic disorder F34.1 [facility] [id number] [place] [address] 32840- 6123 Jun, [facility] [address] 85696- 7604 Jun, [facility] [address] 51674- 8397 May, Other acute gastritis with hemorrhage K29.01 ; Adjustment disorder with anxious mood F43.22 and BMI 50.0-59.9, adult Z68.43 [place] [address] 05772- 8381 28 Apr, 2017 [facility] [address] 38268- 2936 26 Apr, 2017 [facility] [id number] [place] [address] 95445- 8071 15 Apr, 2017 Adjustment disorder with anxious mood F43.22 and BMI 45.0- 49.9, adult Z68.42 [place] [id number] [place] [address] 74211- 0372 13 Apr, 2017 Upper back pain M54.9 ; Temporal pain R51 and BMI 45.0-49.9 , adult Z68.42 [facility] [id number] [place] [address] 43695- 5313 Mar, [facility] [address] 64599- 7672 Mar, [facility] [id number] [place] [address] 82649 -1670 Mar, [facility] [address] 33688- 2347 Mar, Moderate episode of recurrent major depressive disorder F33.1 [facility] [address] [address] 3997 Mar, Moderate episode of recurrent major depressive disorder F33.1 and BMI 45.0-49.9, adult Z68.42 [facility] [address] [address]- 3635 Mar, Chronic nonintractable headache, unspecified headache type R51 and Breast tenderness N64.4 [facility] [address] [address]- 7894 Feb, BMI 45.0-49.9, adult Z68.42 and Moderate episode of recurrent major depressive disorder F33.1 [facility] [address] [address]- 9510 Feb, Dysthymic disorder F34.1 [facility] [id number] [place] [address] 09944- 4501 Jun, [facility] [address] [address]- 5676 Jun, [facility] [address] [address]- 5709 Sep, [facility] [address] [address]- 3493 Sep, [facility] [address] [address]- 2564 Aug, [facility] [address] [address]- 2062 July, [facility] [id number] [address]- 3516 Mar, [facility] [address] 0326 Mar, [facility] [id number] [place] [address] 98473- 8891 May, [facility] [id number] [address]- 1839 May, [facility] [address] [address]- 6457 Apr, [facility] [address] [address]- 5186 Feb, [facility] [id number] [place] [address] 77508- 8057 Dec, [facility] [address] [place] [address] 83492- 8874 Oct, [facility] [id number] [place] [address] 89664- 0310 Dec, [facility] [address] [address]- 7036 May, [facility] [address], [place] [address]- 6559 Feb, [facility] [address], [place] [address]- 6573 Dec, IMMUNIZATIONS No Known Immunizations SOCIAL HISTORY Never Assessed REASON FOR VISIT Hospital f/u-ER [facility]- states the medication is helping a bit but her stomach still hurts- Brian Delgado RN, States stools are dark and smell bad PLAN OF CARE Activity Details Follow Up 4 Weeks Reason: VITAL SIGNS Height 67 in 2017-05-12 Weight 320 lbs 2017-05-12 Temperature 98.0 degrees Fahrenheit 2017-05-12 Heart Rate 82 bpm 2017-05-12 Respiratory Rate 18 2017-05-12 BMI 50.11 kg/m2 2017-05-12 Blood pressure systolic 120 mmHg 2017-05-12 Blood pressure diastolic 70 mmHg 2017-05-12 MEDICATIONS Medication Instructions Dosage Frequency Start Date End Date Duration Status Trintellix 20 mg Orally Once a day 1 tablet 24h Mar, Active Amitriptyline HCl 50 MG Orally Once a day, hs 1 tablet Mar, 30 day(s) Active Carafate 1 GM Orally 4 times a day 1 tablet at bedtime on an empty stomach before meals 6h Active Protonix 40 MG Orally Once a day 1 tablet 24h Active Tizanidine HCl 6 MG Orally Three times a day 1 capsule as needed 8h 13 Apr Active RESULTS Name Result Date Reference Range CBC 2017-05-12 WHITE BLOOD CELL COUNT 12.5 3.8-10.8 RED BLOOD CELL COUNT 5.19 3.80-5.10 HEMOGLOBIN 14.2 11.7-15.5 HEMATOCRIT 43.9 35.0-45.0 MCV 84.6 80.0-100.0 MCH 27.4 27.0-33.0 MCHC 32.3 32.0-36.0 RDW 13.0 11.0-15.0 PLATELET COUNT 415 140-400 MPV 9.8 7.5-12.5 ABSOLUTE NEUTROPHILS 8213 1601-3784 ABSOLUTE LYMPHOCYTES 2763 850-3900 ABSOLUTE MONOCYTES 738 200-950 ABSOLUTE EOSINOPHILS 713 15-500 ABSOLUTE BASOPHILS 75 0-200 NEUTROPHILS 65.7 LYMPHOCYTES 22.1 MONOCYTES 5.9 EOSINOPHILS 5.7 BASOPHILS 0.6 PROCEDURES Procedure Date Ordered Result Body Site COMPLETE CBC W/AUTO DIFF WBC May 12, 2017 INSTRUCTIONS MEDICATIONS ADMINISTERED No Known Medications MEDICAL (GENERAL) HISTORY Type Description Date Medical History age 10-hit back of head on rock, loss consciousness Medical History Jan-2016 concussion x3 weeks Surgical History Gallbladder removed 2014 Surgical History Tonsils removed as a kid Hospitalization History childbirth
--- OUTSIDE RECORDS SUMMARY | 2017-09-28 01:06 | XMS REPORT ---
Author Author LUIZA ESTIVEN Organization [facility] Address [address] [place] [address] Care Team Providers Care Pantograph Machine Operator Name Role Phone LUIZA ESTIVEN Unavailable PROBLEMS Type Condition ICD9-CM Code IQE48-VC Code Onset Dates Condition Status SNOMED Code Problem Seasonal allergies J30.2 Active 520159924 Problem Adjustment disorder with anxious mood F43.22 Active 69106661 Problem Moderate episode of recurrent major depressive disorder F33.1 Active 127008008 Problem Dysthymic disorder F34.1 Active 18723670 ALLERGIES No Information ENCOUNTERS Encounter Location Date Diagnosis [facility] [id number] [place] [address] 56852 -8437 Aug, Viral upper respiratory tract infection J06.9 ; Seasonal allergies J30.2 and BMI 45.0-49.9, adult Z68.42 [facility] [id number] [place] [address] 83317- 6009 Jun, Cervicalgia M54.2 and BMI 50.0-59.9, adult Z68.43 [facility] [id number] [place] [address] 28978- 1736 24 Jun, 2017 Encounter for well woman exam with routine gynecological exam Z01.419 ; BMI 50.0-59.9, adult Z68.43 and General medical exam Z00.00 [facility] [address] [place] [address] 71023- 5616 Jun, Dysthymic disorder F34.1 [facility] [id number] [place] [address] 66018- 3918 Jun, [facility] [id number] [place] [address] 66075- 7991 Jun, [place] [address] [place] [address] 80310- 9362 May, Other acute gastritis with hemorrhage K29.01 ; Adjustment disorder with anxious mood F43.22 and BMI 50.0-59.9, adult Z68.43 [place] [id number] [place] [address] 16224- 0892 28 Apr, 2017 [facility] [address] 23647- 1834 26 Apr, 2017 [facility] [id number] [place] [address] 78457- 2801 15 Apr, 2017 Adjustment disorder with anxious mood F43.22 and BMI 45.0- 49.9, adult Z68.42 [place] [id number] [place] [address] 57808- 1259 13 Apr, 2017 Upper back pain M54.9 ; Temporal pain R51 and BMI 45.0-49.9 , adult Z68.42 [place] [id number] [place] [address] 24940- 4572 Mar, [facility] [id number] [place] [address] 45473- 8030 Mar, [facility] [address] [place] [address] 32640 -2138 Mar, [facility] [id number] [place] [address] 01735- 6553 Mar, Moderate episode of recurrent major depressive disorder F33.1 [facility] [id number] [place] [address] 42902- 3999 Mar, Moderate episode of recurrent major depressive disorder F33.1 and BMI 45.0-49.9, adult Z68.42 [place] [address] [place] [address] 35679- 1021 Mar, Chronic nonintractable headache, unspecified headache type R51 and Breast tenderness N64.4 [place] [address] [place] [address]- 6808 Feb, BMI 45.0-49.9, adult Z68.42 and Moderate episode of recurrent major depressive disorder F33.1 [facility] [address] [place] [address]- 6395 Feb, Dysthymic disorder F34.1 [facility] [id number] [place] [address], [place] [address]- 1598 14 Jun, 2014 [facility] [address] [facility] [id number] [place] [address]- 2452 Jun, [facility] [id number] [place] [address], [place] [address]- 4903 Sep, [facility] [id number] [place] [address]- 3987 Sep, [facility] [id number] [place] [address]- 6088 Aug, [facility] [id number] [place] [address]- 0231 July, [facility] [id number] [place] [address]- 5026 Mar, [facility] [id number] [place] [address]- 5071 Mar, [facility] [address] [address]- 0824 May, [facility] [id number] [place] [address]- 8564 May, [facility] [id number] [place] [address]- 3746 Apr, [facility] [id number] [place] [address]- 2513 Feb, [facility] [address] [address] 2546 Dec, [facility] [address] [facility] [id number] [place] [address]- 2546 Oct, [facility] [address] [facility] [id number] [address]- 2546 Dec, [facility] [address] [facility] [id number] [address]- 2546 May, [facility] [address] [facility] [id number] [address]- 2546 Feb, [facility] [address] [facility] [id number] [address]- 2546 Dec, IMMUNIZATIONS No Known Immunizations SOCIAL HISTORY Never Assessed REASON FOR VISIT f/u PLAN OF CARE Activity Details Follow Up 2 Months Reason: VITAL SIGNS Height 67 in 2017-03-17 Weight 304 lbs 2017-03-17 BMI 47.61 kg/m2 2017-03-17 Blood pressure systolic 132 mmHg 2017-03-17 Blood pressure diastolic 82 mmHg 2017-03-17 MEDICATIONS Medication Instructions Dosage Frequency Start Date End Date Duration Status Klonopin 1 MG Orally Twice a day as needed for anxiety 1 tablet 30 days Not-Taking Trintellix 20 MG Orally Once a day 1 tablet 24h Mar, 30 day(s) Active Amitriptyline HCl 25 MG Orally Once a day 1 tablet 24h Mar, 30 day(s) Active Trintellix 10 mg orally once a day 0.5 tablet every day for one week then take 1 tablet every day 24h Feb, Mar, 30 days Active RESULTS No Results PROCEDURES No Known procedures INSTRUCTIONS MEDICATIONS ADMINISTERED No Known Medications MEDICAL (GENERAL) HISTORY Type Description Date Medical History age 10-hit back of head on rock, loss consciousness Medical History Jan-2016 concussion x3 weeks Surgical History Gallbladder removed 2014 Surgical History Tonsils removed as a kid Hospitalization History childbirth
--- OUTSIDE RECORDS SUMMARY | 2017-09-28 01:06 | XMS REPORT ---
Author Author RACHID NELSON [facility] Address [address] [place] [address] Care Team Providers Care Fish Cleaner Machine Tender Name Role Phone RACHID NELSON Unavailable PROBLEMS Type Condition ICD9-CM Code [id number] Code Onset Dates Condition Status SNOMED Code Problem Seasonal allergies J30.2 Active 961033028 Problem Adjustment disorder with anxious mood F43.22 Active 84501921 Problem Moderate episode of recurrent major depressive disorder F33.1 Active 660953040 Problem Dysthymic disorder F34.1 Active 90015119 ALLERGIES No Information ENCOUNTERS Encounter Location Date Diagnosis [facility] [id number] [place] [address] 17937 -5890 Aug, Viral upper respiratory tract infection J06.9 ; Seasonal allergies J30.2 and BMI 45.0-49.9, adult Z68.42 [facility] [id number] [place] [address] 19178- 5597 Jun, Cervicalgia M54.2 and BMI 50.0-59.9, adult Z68.43 [facility] [id number] [place] [address] 75834- 3743 Jun, Encounter for well woman exam with routine gynecological exam Z01.419 ; BMI 50.0-59.9, adult Z68.43 and General medical exam Z00.00 [facility] [id number] [place] [address] 82436- 5542 Jun, Dysthymic disorder F34.1 [facility] [id number] [place] [address] 33136- 5884 Jun, [facility] [id number] [place] [address] 72317- 8728 Jun, [facility] [address] [address]- 5629 May, Other acute gastritis with hemorrhage K29.01 ; Adjustment disorder with anxious mood F43.22 and BMI 50.0-59.9, adult Z68.43 [place] [id number] [place] [address] 81657- 5841 28 Apr, 2017 [facility] [address] 22636- 0726 26 Apr, 2017 [place] [id number] [place] [address] 96833- 6986 15 Apr, 2017 Adjustment disorder with anxious mood F43.22 and BMI 45.0- 49.9, adult Z68.42 [place] [id number] [place] [address] 41875- 5480 13 Apr, 2017 Upper back pain M54.9 ; Temporal pain R51 and BMI 45.0-49.9 , adult Z68.42 [place] [id number] [place] [address] 57805- 8066 Mar, [place] [id number] [place] [address] 83417- 8458 Mar, [facility] [address] [place] [address] 08833 -2863 Mar, [facility] [id number] [place] [address] 70409- 6958 Mar, Moderate episode of recurrent major depressive disorder F33.1 [facility] [id number] [place] [address] 95083- 7393 Mar, Moderate episode of recurrent major depressive disorder F33.1 and BMI 45.0-49.9, adult Z68.42 [place] [address] [place] [address] 43405- 0341 Mar, Chronic nonintractable headache, unspecified headache type R51 and Breast tenderness N64.4 [place] [address] [place] [address]- 2405 Feb, BMI 45.0-49.9, adult Z68.42 and Moderate episode of recurrent major depressive disorder F33.1 [facility] [address] [place] [address]- 4696 Feb, Dysthymic disorder F34.1 [facility] [address] [place] [address], [place] [address]- 2296 Jun, [facility] [address] [facility] [id number] [place] [address]- 7693 Jun, [facility] [id number] [place] [address], [place] [address]- 8996 Sep, [facility] [id number] [place] [address]- 8697 Sep, [facility] [id number] [place] [address]- 3594 Aug, [facility] [id number] [place] [address]- 1932 July, [facility] [id number] [place] [address]- 8632 Mar, [facility] [id number] [place] [address]- 9026 Mar, [facility] [address] [address]- 8776 May, [facility] [id number] [place] [address]- 8640 May, [facility] [address] [place] [address]- 6266 Apr, [facility] [id number] [place] [address]- 0096 Feb, [facility] [address] [address]- 6303 Dec, [facility] [address] [facility] [id number] [place] [address]- 2546 Oct, [facility] [address] [address]- 2546 Dec, [facility] [id number] [address]- 2546 May, [facility] [id number] [address]- 2546 Feb, [facility] [address] [facility] [id number] [place] [address]- 2546 Dec, IMMUNIZATIONS No Known Immunizations SOCIAL HISTORY Never Assessed REASON FOR VISIT Unable to make contact PLAN OF CARE VITAL SIGNS MEDICATIONS No [...]
--- OUTSIDE RECORDS SUMMARY | 2017-09-28 01:06 | XMS REPORT ---
Author Author RACHID NELSON Organization [facility] Address [address] [place] [address] Care Team Providers Care Hopper Filler Name Role Phone RACHID NELSON Unavailable PROBLEMS Type Condition ICD9-CM Code [id number] Code Onset Dates Condition Status SNOMED Code Problem Seasonal allergies J30.2 Active 454397312 Problem Adjustment disorder with anxious mood F43.22 Active 94576398 Problem Moderate episode of recurrent major depressive disorder F33.1 Active 367409233 Problem Dysthymic disorder F34.1 Active 83770798 ALLERGIES Substance Reaction Event Type Date Status Demerol nausea and vomiting Drug Allergy Apr, Active ENCOUNTERS Encounter Location Date Diagnosis [facility] [id number] [place] [address]48 -7912 Aug, Viral upper respiratory tract infection J06.9 ; Seasonal allergies J30.2 and BMI 45.0-49.9, adult Z68.42 [facility] [id number] [place] [address] 01373- 7703 26 Jun, 2017 Cervicalgia M54.2 and BMI 50.0-59.9, adult Z68.43 [facility] [id number] [place] [address] 66172- 7931 24 Jun, 2017 Encounter for well woman exam with routine gynecological exam Z01.419 ; BMI 50.0-59.9, adult Z68.43 and General medical exam Z00.00 [facility] [id number] [place] [address] 19445- 0959 Jun, Dysthymic disorder F34.1 [facility] [id number] [place] [address] 12954- 8909 Jun, [facility] [id number] [place] [address] 22990- 9266 Jun, [facility] [id number] [place] [address] 84763- 9142 May, Other acute gastritis with hemorrhage K29.01 ; Adjustment disorder with anxious mood F43.22 and BMI 50.0-59.9, adult Z68.43 [facility] [id number] [place] [address] 97576- 1598 Apr, [facility] [address] [address]- [address] Apr, [place] [id number] [place] [address] 76799- 2664 15 Apr, 2017 Adjustment disorder with anxious mood F43.22 and BMI 45.0- 49.9, adult Z68.42 [place] [id number] [place] [address] 73206- 2858 13 Apr, 2017 Upper back pain M54.9 ; Temporal pain R51 and BMI 45.0-49.9 , adult Z68.42 [place] [id number] [place] [address] 86230- 5846 Mar, [facility] [id number] [place] [address] 18136- 0731 Mar, [facility] [id number] [place] [address] 07187 -1625 Mar, [facility] [id number] [place] [address] 42209- 4447 Mar, Moderate episode of recurrent major depressive disorder F33.1 [facility] [id number] [place] [address] 82038- 8090 Mar, Moderate episode of recurrent major depressive disorder F33.1 and BMI 45.0-49.9, adult Z68.42 [facility] [id number] [place] [address] 12825- 7488 Mar, Chronic nonintractable headache, unspecified headache type R51 and Breast tenderness N64.4 [facility] [address], [place] [address] Feb, BMI 45.0-49.9, adult Z68.42 and Moderate episode of recurrent major depressive disorder F33.1 [facility] [id number] [address] Feb, Dysthymic disorder F34.1 [facility] [id number] [place] [address] 94252- 9902 Jun, [facility] [id number] [place] [address] 01970- 1104 Jun, [facility] [id number] [place] [address] 72390- 6950 Sep, [facility] [id number] [place] [address] 55725- 1866 Sep, [facility] [id number] [address] Aug, [facility] [id number] [place] [address] 02164- 3326 July, [facility] [id number] [address] 7[address] Mar, [facility] [address], [place] [address] Mar, [facility] [address], [place] [address] May, [facility] [id number] [address] May, [facility] [id number] [place] [address] 043445- 0941 Apr, [facility] [address], [place] [address] Feb, [facility] [address] [facility] [id number] [place] [address] Dec, [facility] [address] [facility] [id number], [place] [address] Oct, [facility] [id number] [place] [address] 0316 Dec, [facility] [id number], [place] [address]26 May, [facility] [address] [facility] [id number], [place] [address] Feb, [facility] [id number], [place] [address] Dec, IMMUNIZATIONS No Known Immunizations SOCIAL HISTORY Never Assessed REASON FOR VISIT upper back pain more towards the neck and PT has concerns on a bump on her right anglican-[place] IN PLAN OF CARE Activity Details Follow Up 2 Months Reason: VITAL SIGNS Height 67 in 2017-04-26 Weight 314.0 lbs 2017-04-26 Temperature 98.4 degrees Fahrenheit 2017-04-26 Heart Rate 88 bpm 2017-04-26 Respiratory Rate 20 2017-04-26 BMI 49.17 kg/m2 2017-04-26 Blood pressure systolic 122 mmHg 2017-04-26 Blood pressure diastolic 76 mmHg 2017-04-26 MEDICATIONS Medication Instructions Dosage Frequency Start Date End Date Duration Status Tizanidine HCl 6 MG Orally Three times a day 1 capsule as needed 8h 13 Apr Active Trintellix 20 mg Orally Once a day 1 tablet 24h Mar, 90 days Active Amitriptyline HCl 25 MG Orally Once a day 1 tablet 24h Mar, 30 day(s) Active Klonopin 1 MG Orally Twice a day as needed for anxiety 1 tablet 30 days Not-Taking RESULTS Name Result Date Reference Range ESR/SED RATE 2017-04-26 SED RATE BY MODIFIED VICTORINAERGREN 22 < OR=20 PROCEDURES Procedure Date Ordered Result Body Site RBC SED RATE, AUTOMATED Apr 26, 2017 VENIPUNCT, ROUTINE* Apr 26, 2017 INSTRUCTIONS MEDICATIONS ADMINISTERED No Known Medications MEDICAL (GENERAL) HISTORY Type Description Date Medical History age 10-hit back of head on rock, loss consciousness Medical History Jan-2017 concussion x3 weeks Surgical History Gallbladder removed 2014 Surgical History Tonsils removed as a kid Hospitalization History childbirth
--- OUTSIDE RECORDS SUMMARY | 2017-09-28 01:06 | XMS REPORT ---
Author Author RACHID NELSON Organization [facility] Address [address] [place] [address] Care Team Providers Care Corporate Development Manager Name Role Phone RACHID NELSON Unavailable PROBLEMS Type Condition ICD9-CM Code [id number] Code Onset Dates Condition Status SNOMED Code Problem Seasonal allergies J30.2 Active 473693004 Problem Adjustment disorder with anxious mood F43.22 Active 26628620 Problem Moderate episode of recurrent major depressive disorder F33.1 Active 067402166 Problem Dysthymic disorder F34.1 Active 67716394 ALLERGIES Substance Reaction Event Type Date Status Demerol nausea and vomiting Drug Allergy Mar, Active ENCOUNTERS Encounter Location Date Diagnosis [facility] [id number] [place] [address] 54278 -1106 Aug, Viral upper respiratory tract infection J06.9 ; Seasonal allergies J30.2 and BMI 45.0-49.9, adult Z68.42 [facility] [id number] [place] [address] 15631- 8914 26 Jun, 2017 Cervicalgia M54.2 and BMI 50.0-59.9, adult Z68.43 [facility] [id number] [place] [address] 41491- 9652 24 Jun, 2017 Encounter for well woman exam with routine gynecological exam Z01.419 ; BMI 50.0-59.9, adult Z68.43 and General medical exam Z00.00 [facility] [id number] [place] [address] 95054- 1186 Jun, Dysthymic disorder F34.1 [facility] [id number] [place] [address] 67096- 6083 Jun, [facility] [id number] [place] [address] 13797- 2803 Jun, [facility] [id number] [place] [address] 56809- 0206 May, Other acute gastritis with hemorrhage K29.01 ; Adjustment disorder with anxious mood F43.22 and BMI 50.0-59.9, adult Z68.43 [place] [id number] [place] [address] 01734- 0718 Apr, [facility] [address] [address]72- 8238 26 Apr, 2017 [place] [id number] [place] [address] 23823- 3539 15 Apr, 2017 Adjustment disorder with anxious mood F43.22 and BMI 45.0- 49.9, adult Z68.42 [place] [id number] [place] [address] 12051- 5413 13 Apr, 2017 Upper back pain M54.9 ; Temporal pain R51 and BMI 45.0-49.9 , adult Z68.42 [place] [id number] [place] [address] 29430- 5794 Mar, [place] [id number] [place] [address] 06255- 6835 Mar, [facility] [id number] [place] [address] 03945 -0955 Mar, [facility] [id number] [place] [address] 06358- 2591 Mar, Moderate episode of recurrent major depressive disorder F33.1 [place] [id number] [place] [address] 26684- 2907 Mar, Moderate episode of recurrent major depressive disorder F33.1 and BMI 45.0-49.9, adult Z68.42 [place] [id number] [place] [address] 10305- 4575 Mar, Chronic nonintractable headache, unspecified headache type R51 and Breast tenderness N64.4 [facility] [address], [place] [address]- [address] Feb, BMI 45.0-49.9, adult Z68.42 and Moderate episode of recurrent major depressive disorder F33.1 [facility] [address] Feb, Dysthymic disorder F34.1 [facility] [id number] [place] [address] 19649- 0344 Jun, [facility] [id number] [place] [address] 00493- 7853 Jun, [facility] [id number] [place] [address] 34417- 3243 Sep, [facility] [id number] [place] [address] 30183- 4781 Sep, [facility] [id number] [address]- 5953 Aug, [facility] [id number] [place] [address] 06570- 2863 July, [facility] [id number] [address] 1938 Mar, [facility] [address], [place] [address]- 3997 Mar, [facility] [address], [place] [address]- 4651 May, [facility] [address], [place] [address]- 7622 May, [facility] [id number] [address] [address] Apr, [facility] [address], [place] [address]- 4136 Feb, [facility] [address] [facility] [id number] [place] [address]- 3186 Dec, [facility] [address] [facility] [id number], [place] [address]- 9404 Oct, [facility] [address] [facility] [id number], [place] [address]- 2326 Dec, [facility] [address] [facility] [id number], [place] [address]- 0046 May, [facility] [address] [facility] [id number], [place] [address]- 9448 Feb, [facility] [address] [facility] [id number], [place] [address]- 6287 Dec, IMMUNIZATIONS No Known Immunizations SOCIAL HISTORY Never Assessed REASON FOR VISIT Establish Care, PT has concerns with her migrains and she also says she has a knot on the right side of her baptist. PT also has concerns with her period, she has been bleeding for three weeks with tender breast and vomiting-Jenni ANGULO PLAN OF CARE Activity Details Follow Up 4 Weeks Reason: VITAL SIGNS Height 67 in 2017-03-17 Weight 302.8 lbs 2017-03-17 Temperature 98.4 degrees Fahrenheit 2017-03-17 Heart Rate 67 bpm 2017-03-17 Respiratory Rate 18 2017-03-17 BMI 47.42 kg/m2 2017-03-17 Blood pressure systolic 134 mmHg 2017-03-17 Blood pressure diastolic 82 mmHg 2017-03-17 MEDICATIONS Medication Instructions Dosage Frequency Start Date End Date Duration Status Klonopin 1 MG Orally Twice a day as needed for anxiety 1 tablet 30 days Not-Taking Amitriptyline HCl 25 MG Orally Once a day 1 tablet 24h Mar, 30 day(s) Active Topamax 50 mg 1 Tablet by Oral route 3 daily for headache Aug, Not-Taking Flexeril 5 mg 1 tablet by Oral route 3 times per day PRN for tremors Aug, Not-Taking Trintellix 10 mg orally once a day 0.5 tablet every day for one week then take 1 tablet every day 24h Feb, Mar, 30 days Active RESULTS No Results PROCEDURES Procedure Date Ordered Result Body Site COMPREHEN METABOLIC PANEL Mar 17, 2017 COMPLETE CBC W/AUTO DIFF WBC Mar 17, 2017 VENIPUNCT, ROUTINE* Mar 17, 2017 URINE TEST Mar 17, 2017 INSTRUCTIONS MEDICATIONS ADMINISTERED No Known Medications MEDICAL (GENERAL) HISTORY Type Description Date Medical History age 10-hit back of head on rock, loss consciousness Medical History Jan-2017 concussion x3 weeks Surgical History Gallbladder removed 2014 Surgical History Tonsils removed as a kid Hospitalization History childbirth
[2017-09-28] MEDS ORDERED: NS IV 1000 ML 1,000 ML IV ONE (01:49)
[2017-09-28] MEDS ORDERED: diphenhydrAMINE 50 MG/ML INJ (BENADRYL) IVP ONE (02:00)
[2017-09-28] MEDS ORDERED: fentaNYL INJECTION 100 MCG/2 ML AMP IVP ONE (02:00)
[2017-09-28] MEDS ORDERED: ORPHENADRINE 60 MG/2 ML (NORFLEX) AMP IV ONE (02:00)
[2017-09-28] MEDS ORDERED: PROMETHAZINE INJ 25 MG/ML (PHENERGAN) AMP IVP ONE (02:00)
[2017-09-28] MEDS ORDERED: RX-ONDANSETRON 4 MG ODT (ZOFRAN) PPK #4 SL STA (02:57)
--- NOTE | 2017-09-28 03:03 | ED Headache ---
General Chief Complaint: Head/Cervical Problems Stated Complaint: MIGRAINE Nursing Triage Note: PT PRESENTS TO ER WITH COMPLAINT OF MIGRAINE FOR THREE DAYS. STATES THE PAIN STARTED TUESDAY. PT STATES SHE TOOK AMITRIPTYLLINE THIS AFTERNOON. STATES SHE IS OUT OF HER TOPAMAX. Nursing Sepsis Screen: No Definite Risk Source: patient, old records Exam Limitations: no limitations History of Present Illness Date Seen by Provider: Sep 28, 2017 Time Seen by Provider: 01:40 Initial Comments This 26-year-old woman presents to the emergency room with complaint of right sided migraine with photophobia and nausea. It is consistent with her prior migraines. Patient took her usual medications including Lyrica, amitriptyline, fluoxetine, Tylenol. Pain has continued for 3 days. Allergies and Home Medications Allergies Coded Allergies: ketorolac (Unverified Adverse Reaction, Unknown, 01/27/17) meperidine (Unverified Adverse Reaction, Unknown, 01/27/17) Home Medications Butalb/Acetaminophen/Caffeine 1 Each Capsule, 1 EACH PO Q4H PRN for HEADACHE Prescribed by: DONNA LAZCANO on 02/15/17 0552 Hydroxyzine HCl 25 Mg Tablet, 25 MG PO TID PRN for ITCHING Prescribed by: DONNA LAZCANO on 07/03/17 0447 Sulfamethoxazole/Trimethoprim 1 Each Tablet, 1 EACH PO Q12HR Prescribed by: JENNIFER PEARSON on 09/11/17 1724 Patient Home Medication List Home Medication List Reviewed: Yes Review of Systems Constitutional: no symptoms reported Eyes: See HPI Ears, Nose, Mouth, Throat: no symptoms reported Respiratory: no symptoms reported Cardiovascular: no symptoms reported Gastrointestinal: see HPI Genitourinary: no symptoms reported : No LMP: Sep 11, 2017 Musculoskeletal: no symptoms reported Skin: no symptoms reported Psychiatric/Neurological: See HPI Past Hlpxxii-Thimns-Eegwxo Hx Patient Social History Alcohol Use: Denies Use Recreational Drug Use: No Smoking Status: Current Everyday Smoker Type Used: Cigarettes 2nd Hand Smoke Exposure: No Recent Foreign Travel: No Contact w/Someone Who Travel: No Recent Infectious Disease Expo: No Recent Hopitalizations: No Immunizations Up To Date Tetanus Booster (TDap): Unknown PED Vaccines UTD: Yes Seasonal Allergies Seasonal Allergies: No Past Medical History Surgeries: Yes Gallbladder, Tonsillectomy Respiratory: No Cardiac: No Neurological: Yes Headaches /Migraines Genitourinary: No Gastrointestinal: Yes Gall Bladder Disease Musculoskeletal: Yes Fibromyalgia Endocrine: No HEENT: No Cancer: No Psychosocial: Yes Anxiety, Depression Integumentary: No Blood Disorders: No Family Medical History Cancer Physical Exam Vital Signs Vital Signs - First Documented 09/28/17 01:19 Temp 98.9 Pulse 93 Resp 20 B/P (MAP) 133/78 (96) Pulse Ox 96 O2 Delivery Room Air Capillary Refill : Less Than 3 Seconds Height, Weight, BMI Height: 5'7.00" Weight: 300lbs. oz. 136.123152ub; BMI Method:Stated General Appearance: WD/WN, mild distress, obese HEENT: PERRL/EOMI, normal ENT inspection, pharynx normal Neck: normal inspection Cardiovascular: regular rate, rhythm, no edema, no murmur Respiratory: lungs clear, normal breath sounds, no respiratory distress Gastrointestinal: normal bowel sounds, non tender, soft Extremities: normal inspection, no pedal edema Psychiatric: alert, oriented x 3 Crainal Nerves: normal hearing, normal speech, PERRL Motor/Sensory: no motor deficit, no sensory deficit Skin: normal color, warm/dry Progress/Results/Core Measures Results/Orders My Orders Orders - DONNA GILL MD Saline Lock/Iv-Start (09/28/17 01:49) Ns Iv 1000 Ml (Sodium Chloride 0.9%) (09/28/17 01:49) Orphenadrine Injection (Norflex Injectio (09/28/17 02:00) Promethazine Injection (Phenergan Injec (09/28/17 02:00) Fentanyl Injection (Sublimaze Injection (09/28/17 02:00) Diphenhydramine Injection (Benadryl Inje (09/28/17 02:00) Rx-Ondansetron Po (Rx-Zofran Po) (09/28/17 02:57) Medications Given in ED Vital Signs/I&O 09/28/17 09/28/17 01:19 03:15 Temp 98.9 98.9 Pulse 93 88 Resp 20 20 B/P (MAP) 133/78 (96) 129/73 (96) Pulse Ox 96 96 O2 Delivery Room Air Blood Pressure Mean: 96 Progress Progress Note : Progress Note Chart from prior visits was reviewed to determine what medications have been effective in the past. She was given Benadryl, Phenergan, Norflex, fentanyl, and IV fluids. Symptoms improved significantly and she was dismissed home. A take-home packet of Zofran was dispensed. Departure Impression Primary Impression: Migraine headache Qualified Codes: G43.909 - Migraine, unspecified, not intractable, without status migrainosus Disposition: HOME, SELF-CARE Condition: Improved Departure-Patient Inst. Decision time for Depature: 03:00 Referrals: [facility] (PCP/Family) Primary Care Physician Patient Instructions: Migraine Headache (DC) Add. Discharge Instructions: Stay well-hydrated. Rest in a quiet, calm, dark environment for the remainder of the morning. You may resume your usual medications. Use Zofran (ondansetron ) dissolved under the tongue every 4 hours as needed for nausea and vomiting. Return to care if symptoms are not controlled at home. All discharge instructions reviewed with patient and/or family. Voiced understanding. DONNA GILL MD Sep 28, 2017 03:03
[2017-09-28 03:15] VITALS: BP 129/73
== END 2017-09-28 03:15 | disposition home or self-care (01) ==
LOC: EDUNIT# 01:00 → ER 01:02
DX: G43.909 Migraine, unspecified, not intractable, without status migrainosus (principal); F41.9 Anxiety disorder, unspecified; F32.9 Major depressive disorder, single episode, unspecified; F17.210 Nicotine dependence, cigarettes, uncomplicated; Z90.89 Acquired absence of other organs; Z87.448 Personal history of other diseases of urinary system; Z88.5 Allergy status to narcotic agent; Z88.4 Allergy status to anesthetic agent
CPT/HCPCS: 96361; 96374; 96375

== ENCOUNTER 2017-10-22 20:36 | Emergency (ER) | payer MEDICAID ==
[~2017-10-22] VITALS: Ht 170.2 cm; Wt 147.0 kg
--- OUTSIDE RECORDS SUMMARY | 2017-10-22 20:44 | XMS REPORT ---
Author Author DILLAN SWANSON Organization [facility] Address [address] [place] [address] Care Team Providers Care Mail Handler Equipment Operator Name Role Phone DILLAN SWANSON Unavailable PROBLEMS Type Condition ICD9-CM Code OYR48-HA Code Onset Dates Condition Status SNOMED Code Problem Periumbilical abdominal pain R10.33 Active 924710404 Problem Gastroesophageal reflux disease, esophagitis presence not specified K21.9 Active 392174849 Problem Moderate episode of recurrent major depressive disorder F33.1 Active 573969112 Problem Dysthymic disorder F34.1 Active 74550883 Problem Seasonal allergies J30.2 Active 884033051 Problem Adjustment disorder with anxious mood F43.22 Active 12430788 ALLERGIES Substance Reaction Event Type Date Status Demerol nausea and vomiting Drug Allergy Jun, Active ENCOUNTERS Encounter Location Date Diagnosis [facility] [id number] [place] [address] 46239- 8571 Sep, Periumbilical abdominal pain R10.33 and BMI 50.0-59.9, adult Z68.43 [facility] [address] [address] Sep, Nausea R11.0 ; Gastroesophageal reflux disease, esophagitis presence not specified K21.9 and BMI 50.0-59.9, adult Z68.43 [facility] [address] [place] [address] 96465 -0624 Aug, Viral upper respiratory tract infection J06.9 ; Seasonal allergies J30.2 and BMI 45.0-49.9, adult Z68.42 [facility] [address] [address] Jun, Cervicalgia M54.2 and BMI 50.0-59.9, adult Z68.43 [facility] [id number] [place] [address] 08999- 6871 24 Jun, 2017 Encounter for well woman exam with routine gynecological exam Z01.419 ; BMI 50.0-59.9, adult Z68.43 and General medical exam Z00.00 [facility] [id number] [place] [address] 15266- 8214 16 Jun, 2017 Dysthymic disorder F34.1 [facility] [address] [address]- 1027 Jun, [facility] [address] 54875- 2684 Jun, [facility] [address] 98485- 9560 May, Other acute gastritis with hemorrhage K29.01 ; Adjustment disorder with anxious mood F43.22 and BMI 50.0-59.9, adult Z68.43 [facility] [id number] [place] [address] 06080- 0811 28 Apr, 2017 [facility] [address] 83588- 7658 26 Apr, 2017 [facility] [id number] [place] [address] 24091- 9738 15 Apr, 2017 Adjustment disorder with anxious mood F43.22 and BMI 45.0- 49.9, adult Z68.42 [facility] [id number] [place] [address] 65600- 4855 13 Apr, 2017 Upper back pain M54.9 ; Temporal pain R51 and BMI 45.0-49.9 , adult Z68.42 [facility] [address] 70014- 8560 24 Mar, 2017 [facility] [id number] [place] [address] 70177- 7261 Mar, [facility] [address] [address] [address] Mar, [facility] [id number] [place] [address] 50409- 7737 Mar, Moderate episode of recurrent major depressive disorder F33.1 [facility] [id number] [place] [address] 37656- 2837 Mar, Moderate episode of recurrent major depressive disorder F33.1 and BMI 45.0-49.9, adult Z68.42 [facility] [id number] [place] [address] 16192- 5542 Mar, Chronic nonintractable headache, unspecified headache type R51 and Breast tenderness N64.4 [facility] [id number] [place] [address] 72982- 8391 Feb, BMI 45.0-49.9, adult Z68.42 and Moderate episode of recurrent major depressive disorder F33.1 [facility] [id number] [place] [address] 28814- 3975 Feb, Dysthymic disorder F34.1 [facility] [id number] [place] [address] 00692- 6526 Jun, [facility] [id number] [place] [address] 26168- 8420 Jun, [place] [id number] [place] [address] 64417- 5335 Sep, [facility] [id number] [place] [address] 77707- 4002 Sep, [facility] [id number] [place] [address] 96045- 9045 Aug, [facility] [id number] [place] [address] 12725- 9776 July, [facility] [address] [place] [address] 07140- 8351 Mar, [facility] [address] [address]- 9966 Mar, [facility] [address] [address] May, [facility] [address] [address]- 4089 May, [facility] [address] [address]- 3493 Apr, [facility] [address] [address]- 7859 Feb, [facility] [id number] [place] [address] 47906- 9711 Dec, [facility] [address] [place] [address] 79631- 3448 Oct, [facility] [id number] [place] [address] 66014- 4368 Dec, [facility] [address] [address]- 7121 May, [facility] [address] [address]- 9768 Feb, [facility] [address] [address]- 7449 Dec, IMMUNIZATIONS No Known Immunizations SOCIAL HISTORY Never Assessed REASON FOR VISIT Well Woman Exam-Dianne, Last pap was 2014 with PLAN OF CARE Activity Details Follow Up prn Reason:routine f/u pending lab Pending Test PAP REFLEX TO HPV IF ASCUS VITAL SIGNS Height 67 in 2017-07-05 Weight 322.9 lbs 2017-07-05 Temperature 97.8 degrees Fahrenheit 2017-07-05 Heart Rate 84 bpm 2017-07-05 Respiratory Rate 18 2017-07-05 BMI 50.57 kg/m2 2017-07-05 Blood pressure systolic 126 mmHg 2017-07-05 Blood pressure diastolic 92 mmHg 2017-07-05 MEDICATIONS Medication Instructions Dosage Frequency Start Date End Date Duration Status Trintemellissa 20 mg Orally Once a day 1 [...] a day 1 capsule as needed 8h Apr Active RESULTS No Results PROCEDURES Procedure Date Ordered Result Body Site [facility] July 05, 2017 Bacterial Vaginosis In House July 05, 2017 VENIPUNCT, ROUTINE* July 05, 2017 SPECIMEN HANDLING July 05, 2017 INSTRUCTIONS MEDICATIONS ADMINISTERED No Known Medications MEDICAL (GENERAL) HISTORY Type Description Date Medical History age 10-hit back of head on rock, loss consciousness Medical History Jan-2016 concussion x3 weeks Surgical History Gallbladder removed 2014 Surgical History Tonsils removed as a kid Hospitalization History childbirth
--- OUTSIDE RECORDS SUMMARY | 2017-10-22 20:44 | XMS REPORT ---
Author Author RACHID NELSON Organization [facility] Address [address] [place] [address] Care Team Providers Care Train Crew Member Name Role Phone RACHID NELSON Unavailable PROBLEMS Type Condition ICD9-CM Code [id number] Code Onset Dates Condition Status SNOMED Code Problem Periumbilical abdominal pain R10.33 Active 734746590 Problem Gastroesophageal reflux disease, esophagitis presence not specified K21.9 Active 521969564 Problem Moderate episode of recurrent major depressive disorder F33.1 Active 060616111 Problem Dysthymic disorder F34.1 Active 81172208 Problem Seasonal allergies J30.2 Active 604294921 Problem Adjustment disorder with anxious mood F43.22 Active 13131756 ALLERGIES No Information ENCOUNTERS Encounter Location Date Diagnosis [facility] [id number] [place] [address] 38989- 4929 Sep, Periumbilical abdominal pain R10.33 and BMI 50.0-59.9, adult Z68.43 [facility] [address], [place] [address]92 12 Sep, 2017 Nausea R11.0 ; Gastroesophageal reflux disease, esophagitis presence not specified K21.9 and BMI 50.0-59.9, adult Z68.43 [facility] [address] [place] [address] 19385 -9042 15 Aug, 2017 Viral upper respiratory tract infection J06.9 ; Seasonal allergies J30.2 and BMI 45.0-49.9, adult Z68.42 [facility] [address] [place] [address] 16357- 8096 26 Jun, 2017 Cervicalgia M54.2 and BMI 50.0-59.9, adult Z68.43 [facility] [id number] [place] [address] 92725- 6343 24 Jun, 2017 Encounter for well woman exam with routine gynecological exam Z01.419 ; BMI 50.0-59.9, adult Z68.43 and General medical exam Z00.00 [facility] [address] 0[address]71- 1397 16 Jun, 2017 Dysthymic disorder F34.1 [place] [address] 83613- 7133 Jun, [facility] [address] 85834- 9377 Jun, [place] [address] 74948- 6501 May, Other acute gastritis with hemorrhage K29.01 ; Adjustment disorder with anxious mood F43.22 and BMI 50.0-59.9, adult Z68.43 [place] [address] 98699- 4934 28 Apr, 2017 [facility] [address] 47323- 0453 26 Apr, 2017 [facility] [address] 20066- 5781 15 Apr, 2017 Adjustment disorder with anxious mood F43.22 and BMI 45.0- 49.9, adult Z68.42 [place] [address] [place] [address] 83371- 4329 13 Apr, 2017 Upper back pain M54.9 ; Temporal pain R51 and BMI 45.0-49.9 , adult Z68.42 [place] [address] 34709- 4356 Mar, [facility] [address] 99498- 5224 Mar, [facility] [address] 37607 -9831 Mar, [facility] [address], [place] [address]- 4249 Mar, Moderate episode of recurrent major depressive disorder F33.1 [facility] [id number] [place] [address] 265674- 6466 Mar, Moderate episode of recurrent major depressive disorder F33.1 and BMI 45.0-49.9, adult Z68.42 [facility] [id number] [place] [address] 79315- 7725 Mar, Chronic nonintractable headache, unspecified headache type R51 and Breast tenderness N64.4 [facility] [id number] [place] [address] 390883- 6732 Feb, BMI 45.0-49.9, adult Z68.42 and Moderate episode of recurrent major depressive disorder F33.1 [facility] [id number] [place] [address] 56530- 0892 Feb, Dysthymic disorder F34.1 [facility] [address], [place] [address]- 9709 Jun, [facility] [address] [address]- 7613 Jun, [facility] [address], [place] [address]- 8488 Sep, [facility] [id number] [address]- 7576 Sep, [facility] [address], [place] [address]- 2786 Aug, [facility] [id number] [place] [address] 84148- 3546 July, [facility] [address] [address] Mar, [facility] [address] [place] [address] 820959- 1129 Mar, [facility] [id number], [place] [address]- 5938 May, [facility] [address], [place] [address]- 0896 May, [facility] [address], [place] [address]- 7106 Apr, [facility] [address], [place] [address]- 4136 Feb, [facility] [address], [place] [address]- 7957 Dec, [facility] [address] [place] [address] 48946- 9876 Oct, [facility] [address], [place] [address]- 2906 Dec, [facility] [address], [place] [address]- 1166 May, [facility] [address], [place] [address]- 7859 Feb, [facility] [address], [place] [address]- 0726 Dec, IMMUNIZATIONS No Known Immunizations SOCIAL HISTORY Never Assessed REASON FOR VISIT Nurse triage PLAN OF CARE VITAL SIGNS MEDICATIONS Unknown Medications RESULTS No Results PROCEDURES No Known procedures INSTRUCTIONS MEDICATIONS ADMINISTERED No Known Medications MEDICAL (GENERAL) HISTORY Type Description Date Medical History age 10-hit back of head on rock, loss consciousness Medical History Jan-2016 concussion x3 weeks Surgical History Gallbladder removed 2014 Surgical History Tonsils removed as a kid Hospitalization History childbirth
--- OUTSIDE RECORDS SUMMARY | 2017-10-22 20:44 | XMS REPORT ---
Author Author LISA ALFARO Organization [facility] Address [address] [place] [address] Care Team Providers Care Staff Psychiatrist Name Role Phone LISA ALFARO Unavailable PROBLEMS Type Condition ICD9-CM Code EHU40-XG Code Onset Dates Condition Status SNOMED Code Problem Periumbilical abdominal pain R10.33 Active 941365729 Problem Gastroesophageal reflux disease, esophagitis presence not specified K21.9 Active 201569791 Problem Moderate episode of recurrent major depressive disorder F33.1 Active 636231828 Problem Dysthymic disorder F34.1 Active 18995650 Problem Seasonal allergies J30.2 Active 929153740 Problem Adjustment disorder with anxious mood F43.22 Active 18219393 ALLERGIES No Information ENCOUNTERS Encounter Location Date Diagnosis [facility] [id number] [place] [address] 59756- 7916 Sep, Periumbilical abdominal pain R10.33 and BMI 50.0-59.9, adult Z68.43 [facility] [id number] [place] [address] 17965- 4412 12 Sep, 2017 Nausea R11.0 ; Gastroesophageal reflux disease, esophagitis presence not specified K21.9 and BMI 50.0-59.9, adult Z68.43 [facility] [id number] [place] [address] 73679 -1501 15 Aug, 2017 Viral upper respiratory tract infection J06.9 ; Seasonal allergies J30.2 and BMI 45.0-49.9, adult Z68.42 [facility] [id number] [place] [address] 49509- 4791 26 Jun, 2017 Cervicalgia M54.2 and BMI 50.0-59.9, adult Z68.43 [facility] [id number] [place] [address] 50412- 6377 Jun, Encounter for well woman exam with routine gynecological exam Z01.419 ; BMI 50.0-59.9, adult Z68.43 and General medical exam Z00.00 [place] [address] 89359- 4997 Jun, Dysthymic disorder F34.1 [place] [address] 85696- 5291 Jun, [facility] [address] 30375- 2600 Jun, [place] [address] 57012- 4691 May, Other acute gastritis with hemorrhage K29.01 ; Adjustment disorder with anxious mood F43.22 and BMI 50.0-59.9, adult Z68.43 [place] [address] 89185- 1751 28 Apr, 2017 [facility] [address] 66640- 5831 26 Apr, 2017 [place] [address] 46045- 4010 15 Apr, 2017 Adjustment disorder with anxious mood F43.22 and BMI 45.0- 49.9, adult Z68.42 [place] [address] 16456- 4406 13 Apr, 2017 Upper back pain M54.9 ; Temporal pain R51 and BMI 45.0-49.9 , adult Z68.42 [place] [address] 27893- 8652 Mar, [place] [address] 02333- 2567 Mar, [facility] [address] 27443 -3745 Mar, [place] [address], [place] [address]- 1896 Mar, Moderate episode of recurrent major depressive disorder F33.1 [facility] [id number] [place] [address] 459899- 9506 Mar, Moderate episode of recurrent major depressive disorder F33.1 and BMI 45.0-49.9, adult Z68.42 [facility] [id number] [place] [address] 55778- 8030 Mar, Chronic nonintractable headache, unspecified headache type R51 and Breast tenderness N64.4 [facility] [id number] [place] [address] 467211- 7018 Feb, BMI 45.0-49.9, adult Z68.42 and Moderate episode of recurrent major depressive disorder F33.1 [facility] [id number] [place] [address] 27338- 1375 Feb, Dysthymic disorder F34.1 [facility] [address], [place] [address]- 2376 Jun, [facility] [id number] [place] [address] 29607- 2823 Jun, [facility] [address] [address]- 4241 Sep, [facility] [address], [place] [address]- 7056 Sep, [facility] [address], [place] [address]- 7147 Aug, [facility] [id number] [place] [address] 59459- 1814 July, [facility] [address] 2536 Mar, [facility] [address] [place] [address] 784296- 7941 Mar, [facility] [address], [place] [address]- 5183 May, [facility] [address], [place] [address]- 0036 May, [facility] [address], [place] [address]- 4526 Apr, [facility] [address], [place] [address]- 9296 Feb, [facility] [address], [place] [address]- 8939 Dec, [facility] [address] [place] [address] 25581- 0036 Oct, [facility] [id number] [place] [address] 19998- 6956 Dec, [facility] [address], [place] [address]- 8486 May, [facility] [address], [place] [address]- 9638 Feb, [facility] [address], [place] [address]- 9586 Dec, IMMUNIZATIONS No Known Immunizations SOCIAL HISTORY Never Assessed REASON FOR VISIT Crisis intervention. PLAN OF CARE Activity Details Follow Up prn Reason: VITAL SIGNS MEDICATIONS Unknown Medications RESULTS No Results PROCEDURES Procedure Date Ordered Result Body Site Crisis psychotherapy, first 60 minutes, established patient June 27, 2017 INSTRUCTIONS MEDICATIONS ADMINISTERED No Known Medications MEDICAL (GENERAL) HISTORY Type Description Date Medical History age 10-hit back of head on rock, loss consciousness Medical History Jan-2016 concussion x3 weeks Surgical History Gallbladder removed 2014 Surgical History Tonsils removed as a kid Hospitalization History childbirth
--- OUTSIDE RECORDS SUMMARY | 2017-10-22 20:44 | XMS REPORT ---
Author Author RACHID NELSON Organization [facility] Address [address] [place] [address] Care Team Providers Care Mail Forwarding System Markup Clerk Name Role Phone RCAHID NELSON Unavailable PROBLEMS Type Condition ICD9-CM Code [id number] Code Onset Dates Condition Status SNOMED Code Problem Periumbilical abdominal pain R10.33 Active 125804944 Problem Gastroesophageal reflux disease, esophagitis presence not specified K21.9 Active 973042458 Problem Moderate episode of recurrent major depressive disorder F33.1 Active 467468636 Problem Dysthymic disorder F34.1 Active 69005849 Problem Seasonal allergies J30.2 Active 263905770 Problem Adjustment disorder with anxious mood F43.22 Active 66470558 ALLERGIES No Information ENCOUNTERS Encounter Location Date Diagnosis [facility] [id number] [place] [address] Sep, Periumbilical abdominal pain R10.33 and BMI 50.0-59.9, adult Z68.43 [facility] [address], [place] [address] 12 Sep, 2017 Nausea R11.0 ; Gastroesophageal reflux disease, esophagitis presence not specified K21.9 and BMI 50.0-59.9, adult Z68.43 [facility] [id number] [place] [address] 15 Aug, 2017 Viral upper respiratory tract infection J06.9 ; Seasonal allergies J30.2 and BMI 45.0-49.9, adult Z68.42 [facility] [address] [place] [address] 6[address] 26 Jun, 2017 Cervicalgia M54.2 and BMI 50.0-59.9, adult Z68.43 [facility] [id number] [place] [address] 4248 24 Jun, 2017 Encounter for well woman exam with routine gynecological exam Z01.419 ; BMI 50.0-59.9, adult Z68.43 and General medical exam Z00.00 [facility] [address] [address] 16 Jun, 2017 Dysthymic disorder F34.1 [place] [address] [address] Jun, [facility] [address] [address] Jun, [place] [address] [address] May, Other acute gastritis with hemorrhage K29.01 ; Adjustment disorder with anxious mood F43.22 and BMI 50.0-59.9, adult Z68.43 [place] [address] [address] 28 Apr, 2017 [facility] [address] [address] 26 Apr, 2017 [facility] [address] [address] 15 Apr, 2017 Adjustment disorder with anxious mood F43.22 and BMI 45.0- 49.9, adult Z68.42 [place] [id number] [place] [address]- 9131 13 Apr, 2017 Upper back pain M54.9 ; Temporal pain R51 and BMI 45.0-49.9 , adult Z68.42 [place] [address] [address] Mar, [facility] [address] [address] Mar, [facility] [address] [address] Mar, [facility] [address], [place] [address] Mar, Moderate episode of recurrent major depressive disorder F33.1 [facility] [id number] [place] [address] 023330- 3116 Mar, Moderate episode of recurrent major depressive disorder F33.1 and BMI 45.0-49.9, adult Z68.42 [facility] [id number] [place] [address]- 270[address] Mar, Chronic nonintractable headache, unspecified headache type R51 and Breast tenderness N64.4 [facility] [id number] [place] [address] 741831- 8852 Feb, BMI 45.0-49.9, adult Z68.42 and Moderate episode of recurrent major depressive disorder F33.1 [facility] [id number] [place] [address]67- 0464 Feb, Dysthymic disorder F34.1 [facility] [address] [address] Jun, [facility] [id number] [address] Jun, [facility] [address], [place] [address] Sep, [facility] [id number] [address] Sep, [facility] [address], [place] [address] Aug, [facility] [id number] [place] [address]59- 1316 July, [facility] [address] Mar, [facility] [id number] [place] [address] 729562- 1718 Mar, [facility] [id number] [address] May, [facility] [address], [place] [address] May, [facility] [address], [place] [address] Apr, [facility] [address], [place] [address] Feb, [facility] [address], [place] [address] Dec, [facility] [id number] [place] [address] 73608- 5146 Oct, [facility] [address], [place] [address] Dec, [facility] [address], [place] [address] May, [facility] [address], [place] [address] Feb, [facility] [address], [place] [address] Dec, IMMUNIZATIONS No Known Immunizations SOCIAL HISTORY Never Assessed REASON FOR VISIT BH/AT phone response PLAN OF CARE VITAL SIGNS MEDICATIONS Unknown [...]
--- OUTSIDE RECORDS SUMMARY | 2017-10-22 20:44 | XMS REPORT ---
Author Author RACHID NELSON [facility] Address [address] [place] [address] Care Team Providers Care Animal Science Instructor Name Role Phone RACHID NELSON Unavailable PROBLEMS Type Condition ICD9-CM Code ZAO06-CO Code Onset Dates Condition Status SNOMED Code Problem Periumbilical abdominal pain R10.33 Active 258834648 Problem Gastroesophageal reflux disease, esophagitis presence not specified K21.9 Active 703884723 Problem Moderate episode of recurrent major depressive disorder F33.1 Active 489166436 Problem Dysthymic disorder F34.1 Active 94679822 Problem Seasonal allergies J30.2 Active 535874142 Problem Adjustment disorder with anxious mood F43.22 Active 27196354 ALLERGIES Substance Reaction Event Type Date Status Demerol nausea and vomiting Drug Allergy Jun, Active ENCOUNTERS Encounter Location Date Diagnosis [facility] [address], [place] [address] Sep, Periumbilical abdominal pain R10.33 and BMI 50.0-59.[address], [address] [facility] [id number], [place] [address] 12 Sep, 2017 Nausea R11.0 ; Gastroesophageal reflux disease, esophagitis presence not specified K21.9 and BMI 50.0-59.9, adult Z68.43 [facility] [id number], [place] [address] 15 Aug, 2017 Viral upper respiratory tract infection J06.9 ; Seasonal allergies J30.2 and BMI 45.0-49.[address], [address] [facility] [address] [facility] [id number] [address] Jun, Cervicalgia M54.2 and BMI 50.0-59.[address], [address] [facility] [id number] [place] [address]99- [address] 24 Jun, 2017 Encounter for well woman exam with routine gynecological exam Z01.419 ; BMI 50.0-59.9, adult Z68.43 and General medical exam Z00.00 [facility] [id number] [place] [address]- [address]594 16 Jun, 2017 Dysthymic disorder F34.1 [place] [address] [address] Jun, [facility] [address] [address] Jun, [place] [address] [address] May, Other acute gastritis with hemorrhage K29.01 ; Adjustment disorder with anxious mood F43.22 and BMI 50.0-59.9, adult Z68.43 [place] [address] [address] 28 Apr, 2017 [place] [address] [address]- [address] 26 Apr, 2017 [facility] [address] [address]- [address] 15 Apr, 2017 Adjustment disorder with anxious mood F43.22 and BMI 45.0- 49.9, adult Z68.42 [place] [id number] [place] [address] 32685- 0918 13 Apr, 2017 Upper back pain M54.9 ; Temporal pain R51 and BMI 45.0-49.9 , adult Z68.42 [place] [address] [address]- 9955 24 Mar, 2017 [place] [id number] [place] [address]68[address]- 3537 Mar, [facility] [address] [place] [address] Mar, [facility] [address], [place] [address] Mar, Moderate episode of recurrent major depressive disorder F33.1 [facility] [address] Mar, Moderate episode of recurrent major depressive disorder F33.1 and BMI 45.0-49.9, adult Z68.42 [facility] [id number] [place] [address] 88375- 9222 Mar, Chronic nonintractable headache, unspecified headache type R51 and Breast tenderness N64.4 [place] [id number] [place] [address] 98038- 6679 Feb, BMI 45.0-49.9, adult Z68.42 and Moderate episode of recurrent major depressive disorder F33.1 [place] [address] [place] [address]23- 0741 Feb, Dysthymic disorder F34.1 [place] [address], [place] [address] Jun, [facility] [address], [place] [address] Jun, [facility] [address], [place] [address] Sep, [facility] [address] [address] Sep, [facility] [address] [address] Aug, [facility] [address] July, [facility] [address] [address] Mar, [facility] [address] [address] Mar, [facility] [address] [address] May, [facility] [address] [address] May, [facility] [address] [address] Apr, [facility] [address] [address] Feb, [facility] [address] [place] [address] 204032- 3789 Dec, [facility] [address] [address] Oct, [facility] [id number] [place] [address]167- 7013 Dec, [facility] [address] [address] May, [facility] [address], [place] [address] Feb, [facility] [address], [place] [address]- 6862 Dec, IMMUNIZATIONS No Known Immunizations SOCIAL HISTORY Never Assessed REASON FOR VISIT neck pain WB-MA PLAN OF CARE Activity Details Follow Up prn Reason: VITAL SIGNS Height 67 in 2017-07-07 Weight 321 lbs 2017-07-07 Temperature 98.8 degrees Fahrenheit 2017-07-07 Heart Rate 82 bpm 2017-07-07 Respiratory Rate 18 2017-07-07 BMI 50.27 kg/m2 2017-07-07 Blood pressure systolic 118 mmHg 2017-07-07 Blood pressure diastolic 84 mmHg 2017-07-07 MEDICATIONS Medication Instructions Dosage Frequency Start Date End Date Duration Status Protonix 40 MG Orally Once a day 1 tablet 24h Active Carafate 1 GM Orally 4 times a day 1 tablet at bedtime on an empty stomach before meals 6h Active Amitriptyline HCl 50 MG Orally Once a day, hs 1 tablet Mar, 30 day(s) Active Trintellix 20 mg Orally Once a day 1 tablet 24h Mar, Active Tizanidine HCl 6 MG Orally Three times a day 1 capsule as needed 8h 13 Apr Active Ibuprofen 800 MG Orally Three times a day 1 tablet with food or milk as needed 8h Jun, Active Tramadol HCl 50 mg Orally 3 times a day 1 tablet as needed 8h Jun, Active RESULTS No Results PROCEDURES No Known procedures INSTRUCTIONS MEDICATIONS ADMINISTERED No Known Medications MEDICAL (GENERAL) HISTORY Type Description Date Medical History age 10-hit back of head on rock, loss consciousness Medical History Jan-2016 concussion x3 weeks Surgical History Gallbladder removed 2014 Surgical History Tonsils removed as a kid Hospitalization History childbirth
[2017-10-22] MEDS ORDERED: fentaNYL INJECTION 100 MCG/2 ML AMP IVP ONE (20:45)
[2017-10-22] MEDS ORDERED: PROMETHAZINE INJ 25 MG/ML (PHENERGAN) AMP IVP ONE (20:45)
[2017-10-22] MEDS ORDERED: NS IV 1000 ML 1,000 ML IV ONE (20:45)
[2017-10-22] MEDS ORDERED: ORPHENADRINE 60 MG/2 ML (NORFLEX) AMP IM ONE (20:45)
[2017-10-22] MEDS ORDERED: diphenhydrAMINE 50 MG/ML INJ (BENADRYL) IVP ONE (20:45)
[2017-10-22 21:15] LABS: BASOPHILS % (AUTO) 0 % (0-10); EOSINOPHILS # (AUTO) 0.5 10^3/uL (0.0-0.3); EOSINOPHILS % (AUTO) 4 % (0-10); HEMATOCRIT 38 % (35-52); HEMOGLOBIN 12.3 G/DL (11.5-16.0); LYMPHOCYTES # (AUTO) 3.7 X 10^3 (1.0-4.0); LYMPHOCYTES % (AUTO) 29 % (12-44); MEAN CORPUSCULAR HEMOGLOBIN 28 PG (25-34); MEAN CORPUSCULAR HGB CONC 33 G/DL (32-36); MEAN CORPUSCULAR VOLUME 87 FL (80-99); MEAN PLATELET VOLUME 10.8 FL (7.4-10.4); MONOCYTES # (AUTO) 0.6 X 10^3 (0.0-1.0); MONOCYTES % (AUTO) 5 % (0-12); NEUTROPHILS # (AUTO) 7.6 X 10^3 (1.8-7.8); NEUTROPHILS % (AUTO) 61 % (42-75); PLATELET COUNT 349 10^3/uL (130-400); RED BLOOD COUNT 4.36 10^6/uL (4.35-5.85); RED CELL DISTRIBUTION WIDTH 14.5 % (10.0-14.5); WHITE BLOOD COUNT 12.5 10^3/uL (4.3-11.0)
--- NOTE | 2017-10-22 21:19 | ED Neurological Problem ---
General Stated Complaint: SEVERE HEADACHE Source: patient, old records Exam Limitations: no limitations History of Present Illness Date Seen by Provider: Oct 22, 2017 Time Seen by Provider: 20:45 Initial Comments This 27-year-old woman presents to the emergency room with complaints of migraine headache. She has a history of frequent migraines and has been seen in this ER multiple times in the past. Symptoms are fairly typical of migraine. She has visual aura, nausea, and light and sound sensitivity. She additionally complains of pain and tenderness in the right temporal region which is a little different than her usual. She states there is a lump in this area which has been present for about a year and a half. This was not palpable on my exam. Her pain is usually more focused on the occiput. Chart was reviewed and treatment cocktail that was previously effective was ordered again. Allergies and Home Medications Allergies Coded Allergies: ketorolac (Unverified Adverse Reaction, Unknown, 01/27/17) meperidine (Unverified Adverse Reaction, Unknown, 01/27/17) Home Medications Butalb/Acetaminophen/Caffeine 1 Each Capsule, 1 EACH PO Q4H PRN for HEADACHE Prescribed by: DONNA LAZCANO on 02/15/17 0552 Hydroxyzine HCl 25 Mg Tablet, 25 MG PO TID PRN for ITCHING Prescribed by: DONNA LAZCANO on 07/03/17 0447 Sulfamethoxazole/Trimethoprim 1 Each Tablet, 1 EACH PO Q12HR Prescribed by: JENNIFER PEARSON on 09/11/17 1724 Patient Home Medication List Home Medication List Reviewed: Yes Review of Systems Constitutional: no symptoms reported Eyes: See HPI Ears, Nose, Mouth, Throat: see HPI Respiratory: no symptoms reported Cardiovascular: no symptoms reported Gastrointestinal: see HPI Genitourinary: no symptoms reported : No LMP: Oct 22, 2017 Musculoskeletal: no symptoms reported Skin: no symptoms reported Psychiatric/Neurological: See HPI Endocrine: No Symptoms Reported Hematologic/Lymphatic: No Symptoms Reported Past [place]-Vaqcso Hx Past Med/Social Hx: Reviewed Nursing Past Med/Soc Hx Patient Social History Type Used: Cigarettes 2nd Hand Smoke Exposure: No Recent Foreign Travel: No Contact w/Someone Who Travel: No Recent Hopitalizations: No Immunizations Up To Date Tetanus Booster (TDap): Unknown PED Vaccines UTD: Yes Seasonal Allergies Seasonal Allergies: No Past Medical History Surgeries: Yes Gallbladder, Tonsillectomy Respiratory: No Cardiac: No Neurological: Yes Headaches /Migraines : No Last Menstrual Period: Oct 22, 2017 Genitourinary: No Gastrointestinal: Yes Gall Bladder Disease Musculoskeletal: Yes Fibromyalgia Endocrine: No HEENT: No Cancer: No Psychosocial: Yes Anxiety, Depression Integumentary: No Blood Disorders: No Family Medical History Reviewed Nursing Family Hx Cancer Physical Exam Vital Signs Vital Signs - First Documented 10/22/17 20:39 Temp 99.4 Pulse 83 Resp 12 B/P (MAP) 106/51 (69) O2 Delivery Room Air Capillary Refill : Height, Weight, BMI Height: 5'7.00" Weight: 300lbs. oz. 136.673473qj; BMI Method:Stated General Appearance: WD/WN, no apparent distress HEENT: PERRL/EOMI, other (mucous membranes moist. There is tenderness over the right temporal muscle but no palpable mass is noted.) Neck: normal inspection Respiratory: lungs clear, normal breath sounds, no respiratory distress, no accessory muscle use Cardiovascular: regular rate, rhythm, no edema, no murmur Gastrointestinal: non tender, soft Extremities: normal inspection Neurologic/Psychiatric: project analyst II-XII nml as tested, no motor/sensory deficits, alert, normal mood/affect, oriented x 3 Skin: normal color, warm/dry Progress/Results/Core Measures Results/Orders Lab Results Laboratory Tests Test 10/22/17 20:30 10/22/17 21:09 Range/Units Urine Color YELLOW Urine Clarity SLIGHTLY CLOUDY Urine pH 6.5 5-9 Urine Specific [place] 1.020 1.016-1.022 Urine Protein NEGATIVE NEGATIVE Urine Glucose (UA) NEGATIVE NEGATIVE Urine Ketones NEGATIVE NEGATIVE Urine Nitrite NEGATIVE NEGATIVE Urine Bilirubin NEGATIVE NEGATIVE Urine Urobilinogen NORMAL NORMAL MG/DL Urine Leukocyte Esterase NEGATIVE NEGATIVE Urine RBC (Auto) 4+ H NEGATIVE Urine RBC 5-10 H /HPF Urine WBC NONE /HPF Urine Squamous Epithelial Cells 2-5 /HPF Urine Crystals PRESENT H /LPF Urine Amorphous Sediment MOD HIGINIO URATES H /LPF Urine Bacteria NEGATIVE /HPF Urine Casts NONE /LPF Urine Mucus SMALL H /LPF Urine Culture Indicated NO White Blood Count 12.5 H 4.3-11.0 10^3/uL Red Blood Count 4.36 4.35-5.85 10^6/uL Hemoglobin 12.3 11.5-16.0 G/DL Hematocrit 38 35-52 % Mean Corpuscular Volume 87 80-99 FL Mean Corpuscular Hemoglobin 28 25-34 PG Mean Corpuscular Hemoglobin Concent 33 32-36 G/DL Red Cell Distribution Width 14.5 10.0-14.5 % Platelet Count 349 130-400 10^3/uL Mean Platelet Volume 10.8 H 7.4-10.4 FL Neutrophils (%) (Auto) 61 42-75 % Lymphocytes (%) (Auto) 29 12-44 % Monocytes (%) (Auto) 5 0-12 % Eosinophils (%) (Auto) 4 0-10 % Basophils (%) (Auto) 0 0-10 % Neutrophils # (Auto) 7.6 1.8-7.8 X 10^3 Lymphocytes # (Auto) 3.7 1.0-4.0 X 10^3 Monocytes # (Auto) 0.6 0.0-1.0 X 10^3 Eosinophils # (Auto) 0.5 H 0.0-0.3 10^3/uL Basophils # (Auto) 0.0 0.0-0.1 10^3/uL Erythrocyte Sedimentation Rate 37 H 0-20 MM/HR Sodium Level 142 135-145 MMOL/L Potassium Level 3.6 3.6-5.0 MMOL/L Chloride Level 109 H 98-107 MMOL/L Carbon Dioxide Level 24 21-32 MMOL/L Anion Gap 9 5-14 MMOL/L Blood Urea Nitrogen 11 7-18 MG/DL Creatinine 0.71 0.60-1.30 MG/DL Estimat Glomerular Filtration Rate > 60 BUN/Creatinine Ratio 15 Glucose Level 107 H 70-105 MG/DL Calcium Level 9.5 8.5-10.1 MG/DL C-Reactive Protein High Sensitivity 1.21 H 0.00-0.50 MG/DL Serum Test, Qualitative NEGATIVE NEGATIVE My Orders Orders - DONNA GILL MD Orphenadrine Injection (Norflex Injectio (10/22/17 20:45) Fentanyl Injection (Sublimaze Injection (10/22/17 20:45) Diphenhydramine Injection (Benadryl Inje (10/22/17 20:45) Promethazine Injection (Phenergan Injec (10/22/17 20:45) Saline Lock/Iv-Start (10/22/17 20:45) Ns Iv 1000 Ml (Sodium Chloride 0.9%) (10/22/17 20:45) Basic Metabolic Panel (10/22/17 20:54) Cbc With Automated Diff (10/22/17 20:54) Erythrocyte Sedimentation Rate (10/22/17 20:54) Hcg,Qualitative Serum (10/22/17 21:13) Ua Culture If Indicated (10/22/17 21:24) Hs C Reactive Protein (10/22/17 21:42) Medications Given in ED Current Medications Medications Dose Ordered Sig/Phi Route Start Time Stop Time Status Last Admin Dose Admin Diphenhydramine HCl 12.5 mg ONCE ONCE IVP 10/22/17 20:45 10/22/17 20:46 DC 10/22/17 21:15 12.5 MG Fentanyl Citrate 50 mcg ONCE ONCE IVP 10/22/17 20:45 10/22/17 20:46 DC 10/22/17 21:15 50 MCG Orphenadrine Citrate 60 mg ONCE ONCE IM 10/22/17 20:45 10/22/17 20:46 DC 10/22/17 21:15 60 MG Promethazine HCl 25 mg ONCE ONCE IVP 10/22/17 20:45 10/22/17 20:46 DC 10/22/17 21:19 25 MG Sodium Chloride 1,000 ml @ 0 mls/hr Q0M ONCE IV 10/22/17 20:45 10/22/17 20:46 DC 10/22/17 21:15 1,000 MLS/HR Vital Signs/I&O 10/22/17 20:39 Temp 99.4 Pulse 83 Resp 12 B/P (MAP) 106/51 (69) O2 Delivery Room Air Progress Progress Note #1: Progress Note Because of the temporal pain accompanied by the change in vision, labs were ordered including ESR. A cocktail for treatment of migraine was also ordered which included Norflex, Phenergan, fentanyl, Benadryl, and IV fluids. This has been effective for her in the past. Progress Note #2: Time: 21:59 Progress Note Patient is feeling significantly improved. Sedimentation rate and CRP were significantly elevated. UA was performed as patient recently had a urinary tract infection and mild leukocytosis was noted on her CBC. No UTI was found. Departure Impression Primary Impression: Migraine Qualified Codes: G43.109 - Migraine with aura, not intractable, without status migrainosus Additional Impressions: Nausea Temporal pain Disposition: 01 HOME, SELF-CARE Condition: Improved Departure-Patient Inst. Decision time for Depature: 22:01 Referrals: [facility] (PCP/Family) Primary Care Physician Patient Instructions: Migraine Headache (DC) Add. Discharge Instructions: Drink plenty of clear liquids. Rest in a quiet, calm, dark environment for the remainder of the night. You may take Tylenol (acetaminophen) up to 1000 mg every 6 hours. If you tolerate ibuprofen you may additionally take ibuprofen up to 600 mg every 6 hours as needed for additional pain control. Use Zofran as previously prescribed for nausea and vomiting. Follow-up with your primary care provider to discuss prevention and treatment of migraines. DONNA GILL MD Oct 22, 2017 21:19
[2017-10-22 21:32] LABS: BUN/CREATININE RATIO 15; CALCIUM 9.5 MG/DL (8.5-10.1); CARBON DIOXIDE 24 MMOL/L (21-32); CHLORIDE 109 MMOL/L (98-107); CREATININE SERUM 0.71 MG/DL (0.60-1.30); GFR ESTIMATED > 60; GLUCOSE 107 MG/DL (70-105); POTASSIUM 3.6 MMOL/L (3.6-5.0); SODIUM 142 MMOL/L (135-145)
[2017-10-22 21:34] LABS: ERYTHROCYTE SEDIMENTATION RATE 37 MM/HR (0-20)
[2017-10-22 21:40] LABS: BILIRUBIN,URINE NEGATIVE (NEGATIVE); CLARITY,URINE SLIGHTLY CLOUDY; COLOR,URINE YELLOW; GLUCOSE, URINE (UA) NEGATIVE (NEGATIVE); KETONES,URINE NEGATIVE (NEGATIVE); LEUKOCYTE ESTERASE ,URINE NEGATIVE (NEGATIVE); NITRITE,URINE NEGATIVE (NEGATIVE); PH,URINE 6.5 (5-9); PROTEIN,URINE NEGATIVE (NEGATIVE); UROBILINOGEN,URINE NORMAL (NORMAL)
[2017-10-22 21:50] LABS: AMORPHOUS SEDIMENT,UR MOD AMOR URATES /LPF; BACTERIA,URINE NEGATIVE /HPF
[2017-10-22 22:12] VITALS: BP 110/63
== END 2017-10-22 22:15 | disposition home or self-care (01) ==
LOC: EDUNIT# 20:36 → ER 20:38
DX: G43.909 Migraine, unspecified, not intractable, without status migrainosus (principal); R11.0 Nausea; F41.9 Anxiety disorder, unspecified; F32.9 Major depressive disorder, single episode, unspecified; Z87.448 Personal history of other diseases of urinary system; Z90.89 Acquired absence of other organs; Z88.4 Allergy status to anesthetic agent; Z88.8 Allergy status to other drugs, medicaments and biological substances
CPT/HCPCS: 36415; 80048; 81000; 84703; 85025; 85652; 86141; 96361; 96372; 96374; 96375